=== PATIENT | female | born 1940 | race Caucasian/White ===

== ENCOUNTER 2024-06-26 10:41 | Observation (INO) | payer MEDICARE, SELFPAY ==
--- NOTE | ~2024-06-26 | CT_ITS ---
EXAMINATION: CT ANGIOGRAM CHEST CT ABDOMEN AND PELVIS WITH CONTRAST CLINICAL INFORMATION: Epigastric/chest COMPARISON: None. TECHNIQUE: Volumetric helical CT imaging was performed through the chest after the administration of 50 mL of Optiray 320 intravenous contrast.. Images were reviewed on a dedicated 3-D workstation. Subsequently multidetector volumetric CT imaging of the abdomen, and pelvis was performed. Axial MIP volume rendering provided. Sagittal and coronal reformatted images were obtained. This CT examination was performed using dose optimization techniques as appropriate, variously including the following: *Automated exposure control *Adjustment of mA and/or kV according to patient size (this includes techniques or standardized protocols for targeted exams where dose is matched to indication/reason for exam; i.e. extremities or head) *Use of iterative reconstruction technique DLP: 633 mGy-cm. FINDINGS: QUALITY OF STUDY/CONTRAST BOLUS: Satisfactory PULMONARY ARTERIES: No central or segmental pulmonary emboli. Main pulmonary artery is not enlarged. THORACIC AORTA: No aneurysm or dissection. Atherosclerotic calcifications of the aortic arch. LUNG/PLEURA: Respiratory motion artifact limits evaluation. Mild emphysematous changes. Bibasilar atelectasis. Central airways are patent. No pneumothorax. No large pleural effusion. MEDIASTINUM: Heart is mildly enlarged. No pericardial effusion. Coronary artery calcifications are noted. A few mildly prominent though nonenlarged mediastinal lymph nodes are noted. Visualized portions of the thyroid No evidence of septal bowing or right heart strain. Mild elevation right hemidiaphragm. CHEST WALL/AXILLA: No axillary or internal mammary lymphadenopathy. LIVER, GALLBLADDER, AND BILIARY TREE: Liver is mildly enlarged measuring 19.9 cm No focal hepatic lesion or biliary ductal dilatation is present. The gallbladder is unremarkable with no evidence of radiopaque gallstones, gallbladder wall thickening, or obvious pericholecystic inflammatory changes. PANCREAS: Atrophy of the visualized pancreas. SPLEEN: Unremarkable. ADRENAL GLANDS: Unremarkable. KIDNEYS AND URETERS: Bilateral renal hypodense foci demonstrating fluid attenuation statistically representing cysts, not requiring follow-up. Mild right cortical renal thickening suggesting elements of medical renal right-sided nephrolithiasis or cirrhosis. Left-sided nephrolithiasis or BLADDER: Unremarkable. GASTROINTESTINAL TRACT: Small hiatal hernia. Colonic diverticulosis without acute diverticulitis The small and large bowel are unremarkable. The appendix is not definitively visualized. ABDOMINAL WALL: Fat filled bilateral inguinal hernias. LYMPH NODES: No enlarged lymph nodes per size criteria. VASCULAR: Abdominal aorta is nonaneurysmal. Prominent atherosclerotic calcifications of the abdominal aorta and its branches prominent narrowing of the bilateral renal artery ostia. PELVIC VISCERA: Uterus is atrophy versus surgically absent. OSSEOUS STRUCTURES: Multilevel degenerative changes of the thoracolumbar and lumbosacral spine. Sclerotic focus involving the sacrum statistically representing a bone island. CT/CT angio chest PE protocol IMPRESSION: 1. No central or segmental pulmonary emboli. 2. No acute process of the abdomen or pelvis identified. 3. Liver is mildly enlarged measuring 19.9 cm. 4. Bilateral renal hypodense foci demonstrating fluid attenuation statistically representing cysts, not requiring follow-up. 5. Mild right cortical renal thickening suggesting elements of medical renal right-sided nephrolithiasis or cirrhosis. 6. Small hiatal hernia. 7. Colonic diverticulosis without acute diverticulitis. 8. Prominent atherosclerotic calcifications of the abdominal aorta.
[2024-06-26 10:46] VITALS: BP 141/56; BP 155/67; PULSE 80; RESP 22; TEMP 36.8; O2SAT 93; O2SAT 96; BMI 26.4
--- NOTE | 2024-06-26 10:54 | ECG_ITS ---
Test Reason : chest pain Blood Pressure : / mmHG Vent. Rate : 078 BPM Atrial Rate : 078 BPM P-R Int : 242 ms QRS Dur : 076 ms QT Int : 404 ms P-R-T Axes : 036 016 045 degrees QTc Int : 460 ms Sinus rhythm with 1st degree A-V block Septal infarct , age undetermined Abnormal ECG No previous ECGs available Referred By: Venessa Welsh Electronically Signed By:LAY GONZALEZ
--- NOTE | 2024-06-26 11:09 | ED.CHESTPAIN ---
HPI - Chest Pain General Chief Complaint: Chest Pain Stated Complaint: CP TO RUE,NAUSEA,SOB PER EMS Source: patient and family Mode of arrival: EMS Limitations: no limitations History of Present Illness ED Provider: GEOVANI CARRASCO narrative: 84 yo female with PMH of DM, HTN, prior repair of hiatal hernia in past in [place] here with c/o a few days upper abdominal pain and not feeling well at 3am today worsening pain like she got punched in central lower chest with dyspnea and nausea. She notes it hurts to breathe. No fevers. Given aspirin and nitro by EMS no relief. She denies hx of travel/procedures or prior VTE. She notes some pain moves to R arm. No known hx of heart attack in past. Has felt run down over the past few days. MD complaint: chest pain Onset (ago): hour(s) (3am) Timing of current episode: constant Prior episodes: No Onset: during rest Pain location: substernal Pain radiation: right arm Severity: moderate Quality: aching Relieving factors: nothing Exacerbating factors: inspiration Associated symptoms: nausea and dyspnea Treatment prior to arrival: aspirin, nitroglycerin and oxygen Related Data Allergies Allergy/AdvReac Type Severity Reaction Status Date / Time No Known Allergies Allergy Verified 06/26/24 10:53 Review of Systems Review of Systems: Constitutional : No Weight loss, No Fever, No Chills ENT/Mouth : No sore throat, No Rhinorrhea Eyes: No Eye Pain, No Swelling Cardiovascular : pos Chest Pain, pos SOB, no Dyspnea on Exertion, No Orthopnea, No Edema, No Palpitations Respiratory : No Cough, No Sputum Gastrointestinal : pos Nausea, No Vomiting, No Diarrhea, pos abdominal Pain, No Hematochezia, No Melena Genitourinary : No Dysuria, No Urinary Frequency Musculoskeletal : No joint pain, No Myalgias, No Joint Swelling Skin : No Skin Lesions, No rash Neuro : No Weakness, No Numbness, No Dizziness, No Headache Psych : No Anxiety/Panic, No Depression All other systems reviewed and are negative [facility] Past Medical History Attestation statement: The following information was validated with the patient. Medical History Hiatal hernia HTN (hypertension) Diabetes Surgical History H/O: hysterectomy Social History Social History (Updated 06/26/24 @ 11:33 by Venessa Welsh DO) Patient Tobacco Use Status: Never used Tobacco Smoked in Last 30 Days: No Use of substances other than those prescribed or required for medical reasons: No Advance Directives: No Advance Directives Information Provided: No Physical Exam Vital Signs: Vital Signs: Last Vital Signs Temp 98.5 F 06/26/24 14:24 Pulse 80 06/26/24 14:24 Resp 18 06/26/24 14:24 BP 164/61 H 06/26/24 14:24 Pulse Ox 98 06/26/24 14:24 O2 Del Method Room Air 06/26/24 14:24 Oxygen Flow Rate 2 06/26/24 10:46 BMI result Body Mass Index 26.4 Appearance: Alert. Oriented X3. No acute distress. Eyes: Pupils equal, round and reactive to light. ENT: Pharynx normal. Neck: Normal inspection. Neck supple. CVS: Normal heart rate and rhythm. Pulses normal. Respiratory: No respiratory distress. Breath sounds R side mildly diminished Abdomen: Soft and mild epigastric ttp. Skin: Skin warm and dry. Normal skin color. Normal skin turgor. Extremities: trace pitting both ankles lower extremity edema. No calf ttp Neuro: Oriented X 3. No motor deficit. No sensory deficit. Course Course Course Narrative: + UTI at this time possible infection suspected ceftriaxone ordered 422pm Medications Administered Discontinued Medications Generic Name Dose Route Start Last Admin Trade Name Freq PRN Reason Stop Dose Admin Iohexol 100 ml 06/26/24 13:24 06/26/24 13:24 Iohexol 350 Mg/Ml 100 Ml Infus..Btl IV 06/26/24 13:25 85 ml ONCE ONE Administration Methylprednisolone Sodium Succinate 60 mg 06/26/24 11:02 06/26/24 11:24 Methylprednisolone Sod Succ 125 Mg/2 Ml Vial IVPUSH 06/26/24 11:03 60 mg ONCE ONE Administration Medical Decision Making Medical Decision Making MDM Narrative: 84 yo female with PMH of DM, HTN, prior repair of hiatal hernia DOES NOT HAVE COPD OR CHF here with a few days of not eating much feeling sick then increase in epigastric substernal pain that became more severe at 3am with nausea and dyspnea. Pain worse with inspiration. No relief with nitro. At this time given history will need EKG, CTA for PE/aneurysm/hiatal hernia and CT abdomen for SBO / mass / lesion. Declines pain medications at this time. Differential Diagnosis Differential Diagnoses: The differential diagnosis associated with the presentation includes biliary etiology, hiatal hernia, ACS, VTE, pancreatitis Admission/Observation Consideration of admission/observation: Escalation of care including admission/observation considered admit for intermittent hypoxia, UTI, nausea, malaise Consult Healthcare Provider Management of the patient was discussed with: Hospitalist (will admit) Lab Data MDM Lab Attestation statement: I reviewed the patient's lab results. 06/26/24 12:44 06/26/24 12:44 Labs: Lab Results 06/26/24 06/26/24 Range/Units 12:44 15:48 WBC 17.7 H (4.8-10.8) X10*3/uL RBC 4.06 L (4.20-5.50) X10*6/uL Hgb 12.7 (12.0-16.0) g/dl Hct 38.4 (37.0-47.0) % MCV 94.6 (80.0-98.0) fL MCH 31.3 (27.0-33.0) pg MCHC 33.1 (31.0-35.0) g/dl RDW 12.7 (11.0-16.0) % Plt Count 261 (160-400) X10*3/uL MPV 11.1 (9.4-12.3) fL Immature Gran % (Auto) 0.6 H (0.0-0.4) % Neut % (Auto) 89.3 H (45-73) % Lymph % (Auto) 4.4 L (20-40) % [place] % (Auto) 5.1 (2-11) % Eos % (Auto) 0.2 (0-4) % Baso % (Auto) 0.4 (0-2) % Lymph # (Auto) 0.8 L (1.2-4.9) X10*3/uL [place] # (Auto) 0.9 (0.1-1.2) X10*3/uL Eos # (Auto) 0.0 (0.0-0.4) X10*3/uL Baso # (Auto) 0.1 (0.0-0.2) X10*3/uL Abs Immat Gran (auto) 0.11 H (0.00-0.03) X10*3/uL Absolute Neuts (auto) 15.8 H (2.0-8.3) x10*3/uL Absolute Nucleated RBC 0.000 (0.0-0.012) X10*3/uL Nucleated RBC % (auto) 0.0 (0.0-0.2) /100WBC PT 13.0 (11.1-13.3) SEC INR 1.1 (0.9-1.1) Sodium 140 (135-145) mmol/L Potassium 4.7 (3.3-5.1) mmol/L Chloride 106 (96-108) mmol/L Carbon Dioxide 23 (22-29) mmol/L Anion Gap 16 (12-20) BUN 28 H (9-16) mg/dL Creatinine 1.11 (0.5-1.4) mg/dL Estim Creat Clear Calc 36.1 Estimated GFR 47 Random Glucose 170 H (60-115) mg/dL Calcium 9.9 (8.4-10.2) mg/dL Magnesium 1.8 (1.6-2.6) mg/dL Total Bilirubin 0.4 (0.0-1.0) mg/dL Direct Bilirubin 0.1 (0.0-0.5) mg/dL AST 15 (5-31) U/L ALT 12 (0-31) U/L Alkaline Phosphatase 63 (39-117) U/L Troponin I High Sens 4.8 3.8 (<3.5-17.0) ng/L B-Natriuretic Peptide 282 H (<100) pg/mL Total Protein 7.4 (6.5-8.0) g/dL Albumin 4.0 (3.5-5.0) g/dL Urine Color Yellow Urine Appearance Cloudy Urine pH 6.0 (5.0-9.0) Ur Specific [place] >= 1.030 H (1.005-1.025) Urine Protein 100 (2+) H (Neg-Trace) mg/dL Urine Glucose (UA) Negative (Negative) mg/dL Urine Ketones Negative (Negative) mg/dL Urine Blood Negative (Negative) Urine Nitrite Negative (Negative) Ur Leukocyte Esterase Small (1+) H (Negative) Urine RBC 0-2 (0-2) /HPF Urine WBC >50 H (0-5) /HPF Ur Squamous Epith Cells 0-2 (0-2) /HPF Urine Bacteria 4+ (None Seen) Hyaline Casts 0-2 (0-2) /LPF Influenza Type A (PCR) NEGATIVE (Negative) Influenza Type B (PCR) NEGATIVE (Negative) RSV RNA Qual (PCR) NEGATIVE (Negative) SARS-CoV-2 RNA (RT-PCR) NEGATIVE (Negative) Independent Interpretation I performed an independent interpretation of an: EKG and CT Scan (no PE, no pneumonia) Interpretation: Rate: 78 Rhythm: NSR with 1st degree AVB [place]: normal Normal P waves. Normal MALU. Normal QRS complex. ST T wave : slight ST elevation II otherwise no other elevation, no reciprocal changes qTC: 460 prior studies: The study has been interpreted contemporaneously by me. . Radiology Impression Discussion of test interpretation with radiology: I have reviewed the radiologist's reading. Independent Historian Clinical information obtained from an independent historian. History obtained from or confirmed by: EMS and Other (daughter) Discharge Plan Discharge Clinical Impression: Atypical chest pain, Acute UTI, Hypoxia Elevated WBC count Qualifiers: Leukocytosis type: unspecified Qualified Code(s): D72.829 - Elevated white blood cell count, unspecified Patient Disposition: Admitted As Inpatient Print Language: Georgian
[2024-06-26] MEDS: methylPREDNISolone Sod Succ 125 MG/2 ML VIAL 60 MG IVPUSH (11:24)
[2024-06-26 12:50] LABS: MANUAL DIFF FLAG NO
[2024-06-26 13:00] LABS: Basophils Absolute Auto 0.1 X10*3/uL (0.0-0.2); Basophils Percent Auto 0.4 % (0-2); Eosinophils Percent Auto 0.2 % (0-4); Hematocrit 38.4 % (37.0-47.0); Hemoglobin 12.7 g/dl (12.0-16.0); Imm Gran Abs Auto 0.11 X10*3/uL (0.00-0.03); Imm Gran Pct Auto 0.6 % (0.0-0.4); Lymphocytes Absolute Auto 0.8 X10*3/uL (1.2-4.9); Lymphocytes Percent Auto 4.4 % (20-40); Mean Corpuscular HGB Conc 33.1 g/dl (31.0-35.0); Mean Corpuscular Hemoglobin 31.3 pg (27.0-33.0); Mean Corpuscular Volume 94.6 fL (80.0-98.0); Mean Platelet Volume 11.1 fL (9.4-12.3); Monocytes Absolute Auto 0.9 X10*3/uL (0.1-1.2); Monocytes Percent Auto 5.1 % (2-11); Neutrophils Absolute Auto 15.8 x10*3/uL (2.0-8.3); Neutrophils Percent Auto 89.3 % (45-73); Platelet Count 261 X10*3/uL (160-400); Red Blood Count 4.06 X10*6/uL (4.20-5.50); Red Cell Distribution Width 12.7 % (11.0-16.0); White Blood Count 17.7 X10*3/uL (4.8-10.8)
[2024-06-26 13:06] LABS: Alanine Aminotransferase 12 U/L (0-31); Alkaline Phosphatase 63 U/L (39-117); Anion Gap 16 (12-20); Aspartate Amino Transferase 15 U/L (5-31); Bilirubin Direct 0.1 mg/dL (0.0-0.5); Bilirubin Total 0.4 mg/dL (0.0-1.0); Blood Urea Nitrogen 28 mg/dL (9-16); Calcium 9.9 mg/dL (8.4-10.2); Carbon Dioxide 23 mmol/L (22-29); Chloride 106 mmol/L (96-108); Creatinine Clr Calc Pharmacy 36.1; Estimated Glomerular Filt Rate 47; Glucose Random 170 mg/dL (60-115); INTERNATIONAL NORM RATIO 1.1 (0.9-1.1); Magnesium 1.8 mg/dL (1.6-2.6); Potassium 4.7 mmol/L (3.3-5.1); Sodium 140 mmol/L (135-145); Total Protein 7.4 g/dL (6.5-8.0)
[2024-06-26 13:12] LABS: B Type Natriuretic Peptide 282 pg/mL (<100); Troponin-I High Sensitivity 4.8 ng/L (<3.5-17.0)
[2024-06-26] MEDS: iohexoL 350 MG/ML 100 ML INFUS..BTL IV (13:24)
[2024-06-26 13:29] LABS: Influenza A PCR NEGATIVE (Negative); Influenza B PCR NEGATIVE (Negative); Resp Syncy Virus RNA Qual PCR NEGATIVE (Negative); SARS COV2 PCR INHOUSE NEGATIVE (Negative)
[2024-06-26 14:24] VITALS: BP 164/61; PULSE 80; RESP 18; TEMP 36.9; O2SAT 98
[2024-06-26 15:54] LABS: Appearance Urine Cloudy; Color Urine Yellow; Glucose Urine UA Negative (Negative); Leukocyte Esterase Urine Small (1+) (Negative); Nitrite Urine Negative (Negative); Specific Gravity - Urine >= 1.030 (1.005-1.025); UMIC TRIGGER UACC YES; Urine Blood Negative (Negative); Urine Ketones Negative (Negative); Urine Protein 100 (2+) mg/dL (Neg-Trace)
[2024-06-26 16:14] LABS: Bacteria Urine 4+ (None Seen); Hyaline Casts Urine 0-2 /LPF (0-2); RBC Urine 0-2 /HPF (0-2); Squamous Epithelial Cell Urine 0-2 /HPF (0-2); UACC Culture Trigger YES; WBC Urine >50 /HPF (0-5)
[2024-06-26 16:22] LABS: Troponin-I High Sensitivity 3.8 ng/L (<3.5-17.0)
[2024-06-26 16:55] LABS: Lactic Acid 1.7 mmol/L (0.5-2.0)
[2024-06-26 17:16] VITALS: BP 145/58; PULSE 81; RESP 24; TEMP 36.6; O2SAT 92
[2024-06-26 17:17] VITALS: BP 145/58
[2024-06-26] MEDS: cefTRIAXone sodium 1 GM in 0.9 % Sodium Chloride 50 ML IV (17:17)
[2024-06-26] MEDS: Furosemide 20 MG/2 ML VIAL IVPUSH (17:17)
--- NOTE | 2024-06-26 17:45 | P.HPHOSP_ITS ---
History of Present Illness Date of Service: 06/26/24 Chief Complaint: dyspnea, chest pain 84yo F with DM2, HTN, and HLD but no known hx of COPD or CHF presenting to the ED after waking up at 03:00 with sharp mid-sternal chest pain with dyspnea, nausea, and malaise. The pain was severe enough for her to come to the ED but since arrival here, has subsided. No fever, chills, dizziness, headache, cough, or wheezing. Legs are maybe a little more swollen than usual. In the ED, she was noted to be hypoxic to 89% on room air; currently 92-95% on room air after getting a dose of IV furosemide, Solumedrol, and ceftriaxone. WBC count elevated to 17.7 with 89.3% WBCs. Two hs-Tn-I measurements were normal. BNP 282. UA showed pyuria + bacteruria, but the patient denies any dysuria or urinary urgency. CTA was motion-limited but no central/segmental PE noted. PCR for Covid-19, influenza, and RSV negative. Review of Systems 2 Review of Systems: Yes all other systems are reviewed and are negative [facility] Medical History Hiatal hernia HTN (hypertension) Diabetes Surgical History H/O: hysterectomy Social History Patient Tobacco Use Status: Never used Tobacco Smoked in Last 30 Days: No Use of substances other than those prescribed or required for medical reasons: No Advance Directives: No Advance Directives Information Provided: No Meds Allergies Allergy/AdvReac Type Severity Reaction Status Date / Time No Known Allergies Allergy Verified 06/26/24 10:53 Active Medications: Current Medications Acetaminophen (Acetaminophen 325 Mg Tablet) 650 mg PO Q6H PRN PRN Reason: Pain, Mild (Pain Scale 1-3), fever or headache Enoxaparin Sodium (Enoxaparin Sodium 40 Mg/0.4 Ml Syringe) 40 mg SUBCUT Q24H [place] Glucose (Glucose Gel 15 Gm Gel..Gram.) 15 gm PO Q15M PRN; Protocol PRN Reason: per Hypoglycemia Standing Ord. Dextrose (D10) 250 mls @ 750 mls/hr IV Q15M PRN; Protocol PRN Reason: per Hypoglycemia Standing Ord. Insulin Human Lispro (Insulin Lispro 100 Unit/Ml 3 Ml Vial) [facility]; Protocol Magnesium Hydroxide (Milk Of Magnesia 30 Ml Oral.Susp) 30 ml PO DAILY PRN PRN Reason: Constipation Melatonin (Melatonin 3 Mg Tablet) 6 mg PO BEDTIME PRN PRN Reason: Insomnia Ondansetron HCl (Ondansetron Hcl 4 Mg/2 Ml Vial) 4 mg IVPUSH Q8H PRN PRN Reason: Nausea and Vomiting Sodium Chloride (0.9 % Sodium Chloride Flush 3 Ml Syringe) 3 ml IVFLUSH [facility] Home Medications ?Medication ?Instructions ?Recorded ?Confirmed ?Last Taken ?Type amlodipine 10 mg tablet 10 mg PO DAILY 06/26/24 Unknown History ferrous sulfate 325 mg (65 mg 325 mg PO BID 06/26/24 Unknown History iron) tablet (FeroSul) insulin glargine 100 unit/mL (3 12 - 16 unit subcut DAILY 06/26/24 Unknown History mL) subcutaneous pen (Lantus Solostar U-100 Insulin) labetalol 100 mg tablet 100 mg PO BID 06/26/24 Unknown History metformin 500 mg tablet 500 mg PO BID 06/26/24 Unknown History olmesartan 20 mg tablet 30 mg PO DAILY 06/26/24 Unknown History omeprazole 20 mg capsule,delayed 20 mg PO DAILY 06/26/24 Unknown History release simvastatin 20 mg tablet 20 mg PO BEDTIME 06/26/24 Unknown History Physical Exam 2 Vital Signs and Narrative: Vital Signs: Last Vital Signs Temp 97.8 F 06/26/24 17:16 Pulse 81 06/26/24 17:16 Resp 24 H 06/26/24 17:16 BP 145/58 H 06/26/24 17:17 Pulse Ox 92 06/26/24 17:16 O2 Del Method Room Air 06/26/24 17:16 Oxygen Flow Rate 2 06/26/24 10:46 BMI result Body Mass Index 26.4 Gen: in no acute distress HEENT: sclera anicteric, moist mucus membranes Neck: supple Lungs: clear to auscultation bilaterally Heart: regular rate and rhythm, no murmurs Abd: soft, non-tender, non-distended Ext: 1+ bilateral leg edema Skin: warm/well-perfused Neuro: alert and oriented x3, no focal findings Psych: appropriate affect Results Labs 06/26/24 12:44 06/26/24 12:44 Labs: Laboratory Results - last 24 hr 06/26/24 06/26/24 06/26/24 12:44 15:48 16:39 MCV 94.6 MCH 31.3 MCHC 33.1 RDW 12.7 Plt Count 261 MPV 11.1 Immature Gran % (Auto) 0.6 H Neut % (Auto) 89.3 H Lymph % (Auto) 4.4 L [place] % (Auto) 5.1 Eos % (Auto) 0.2 Baso % (Auto) 0.4 Lymph # (Auto) 0.8 L [place] # (Auto) 0.9 Eos # (Auto) 0.0 Baso # (Auto) 0.1 Abs Immat Gran (auto) 0.11 H Absolute Neuts (auto) 15.8 H Absolute Nucleated RBC 0.000 Nucleated RBC % (auto) 0.0 PT 13.0 INR 1.1 Anion Gap 16 Estim Creat Clear Calc 36.1 Estimated GFR 47 Random Glucose 170 H Lactic Acid 1.7 Calcium 9.9 Magnesium 1.8 Total Bilirubin 0.4 Direct Bilirubin 0.1 AST 15 ALT 12 Alkaline Phosphatase 63 Troponin I High Sens 4.8 3.8 B-Natriuretic Peptide 282 H Total Protein 7.4 Albumin 4.0 Urine Color Yellow Urine Appearance Cloudy Urine pH 6.0 Ur Specific [place] >= 1.030 H Urine Protein 100 (2+) H Urine Glucose (UA) Negative Urine Ketones Negative Urine Blood Negative Urine Nitrite Negative Ur Leukocyte Esterase Small (1+) H Urine RBC 0-2 Urine WBC >50 H Ur Squamous Epith Cells 0-2 Urine Bacteria 4+ Hyaline Casts 0-2 Influenza Type A (PCR) NEGATIVE Influenza Type B (PCR) NEGATIVE RSV RNA Qual (PCR) NEGATIVE SARS-CoV-2 RNA (RT-PCR) NEGATIVE Imaging Radiologist's Impressions: Impressions Abdomen/Pelvis CT 06/26/24 13:33 IMPRESSION: 1. No central or segmental pulmonary emboli. 2. No acute process of the abdomen or pelvis identified. 3. Liver is mildly enlarged measuring 19.9 cm. 4. Bilateral renal hypodense foci demonstrating fluid attenuation statistically representing cysts, not requiring follow-up. 5. Mild right cortical renal thickening suggesting elements of medical renal right-sided nephrolithiasis or cirrhosis. 6. Small hiatal hernia. 7. Colonic diverticulosis without acute diverticulitis. 8. Prominent atherosclerotic calcifications of the abdominal aorta. Chest CTA 06/26/24 13:33 IMPRESSION: 1. No central or segmental pulmonary emboli. 2. No acute process of the abdomen or pelvis identified. 3. Liver is mildly enlarged measuring 19.9 cm. 4. Bilateral renal hypodense foci demonstrating fluid attenuation statistically representing cysts, not requiring follow-up. 5. Mild right cortical renal thickening suggesting elements of medical renal right-sided nephrolithiasis or cirrhosis. 6. Small hiatal hernia. 7. Colonic diverticulosis without acute diverticulitis. 8. Prominent atherosclerotic calcifications of the abdominal aorta. Assessment and Plan (1) Hypoxia: Status: Acute (2) Elevated WBC count: Qualifiers: Leukocytosis type: unspecified Qualified Code(s): D72.829 - Elevated white blood cell count, unspecified Status: Acute Plan 84yo F with DM2, HTN, and HLD but no known hx of COPD or CHF presenting with chest pain, dyspnea, nausea, and malaise; found to be slightly hypoxic with leukocytosis. Negative CTA for PE. Troponins negative. Pyuria/bacteruria but no UTI symptoms. AHRF - admit to telemetry on observation. suspect CHF with edema + elevated BNP and did get 1 dose Lasix. check TTE in AM. another possibility is COPD with mild empysema noted on CT. did get 1 dose Solumedrol. leukocytosis - ?etiology. got 1 dose ceftriaxone. BCx/UCx pending. check CRP/PCT HTN - amlodipine, labetalol, olmesartan HLD - statin DM2 - basal-bolus insulin; hold MTF VTE ppx - enoxaparin code - DNR/DNI dispo - likely home Quality Stroke Does the patient have a stroke diagnosis?: No VTE Prior VTE?: No VTE Risk Level:: Medical - moderate - high VTE Device Contraindication: N/A - Device Ordered VTE Drug Contraindication: N/A - Med Ordered
[2024-06-26 18:02] LABS: C Reactive Protein 1.82 mg/dL (< or = 0.50)
--- NOTE | 2024-06-26 18:17 | PHA.MEDREC ---
Addendum entered by Teresa Ascencio RPh 06/26/24 18:56: med rec complete by engineer intern, reviewed by [facility] Original Note: Pharmacy Consult ? Medication Reconciliation Pharmacy has completed the medication reconciliation.
[2024-06-26 18:18] LABS: Procalcitonin 0.17 ng/mL
[2024-06-26 18:28] LABS: Troponin-I High Sensitivity 3.7 ng/L (<3.5-17.0)
[2024-06-26] MEDS: Enoxaparin Sodium 40 MG/0.4 ML SYRINGE SUBCUT (19:20)
[2024-06-26 20:19] VITALS: BP 133/54; PULSE 79; RESP 22; TEMP 37.1; O2SAT 95
--- NOTE | 2024-06-26 20:53 | PC.NURSE ---
pt calm and pleasant, assisted pt move up in bed for comfort, removed visitor sticker pt had on, pt now refusing to talk or answer questions, mood quickly changed.
[2024-06-26 22:00] LABS: Glucose, Whole Blood 346 mg/dL (60-115)
[2024-06-26] MEDS: Insulin Lispro 100 UNIT/ML 3 ML VIAL SUBCUT (22:04)
[2024-06-27] MEDS: 0.9 % Sodium Chloride Flush 3 ML SYRINGE IVFLUSH ×2 (00:31→08:00)
[2024-06-27 00:34] VITALS: BP 134/47; PULSE 74; RESP 22; TEMP 36.7; O2SAT 93
[2024-06-27 04:12] VITALS: BP 124/89; PULSE 74; RESP 22; TEMP 36.7; O2SAT 92
[2024-06-27 05:34] LABS: Hematocrit 33.1 % (37.0-47.0); Mean Corpuscular HGB Conc 33.2 g/dl (31.0-35.0); Mean Corpuscular Hemoglobin 31.3 pg (27.0-33.0); Mean Corpuscular Volume 94.3 fL (80.0-98.0); Mean Platelet Volume 11.7 fL (9.4-12.3); Platelet Count 245 X10*3/uL (160-400); Red Blood Count 3.51 X10*6/uL (4.20-5.50); Red Cell Distribution Width 12.9 % (11.0-16.0); White Blood Count 15.7 X10*3/uL (4.8-10.8)
[2024-06-27 05:45] LABS: Anion Gap 19 (12-20); Blood Urea Nitrogen 35 mg/dL (9-16); Calcium 9.4 mg/dL (8.4-10.2); Carbon Dioxide 20 mmol/L (22-29); Chloride 104 mmol/L (96-108); Creatinine Clr Calc Pharmacy 28.8; Estimated Glomerular Filt Rate 36; Glucose Random 296 mg/dL (60-115); Sodium 139 mmol/L (135-145)
[2024-06-27 05:52] LABS: B Type Natriuretic Peptide 628 pg/mL (<100)
[2024-06-27 06:10] VITALS: BP 142/100; PULSE 77; RESP 18; TEMP 36.6; O2SAT 94
--- NOTE | 2024-06-27 07:00 | CA_ITS ---
Transthoracic Echocardiogram Patient (Last, First, Middle): Gayle Rainey G Gender: Female Date of : 1940 Age: 84 Procedure Date: 06/27/2024 Procedure Type: Transthoracic Echocardiogram Location: ER Height: 162. cm Weight: 69.4 kg BSA: 1.74 m2 Heart Rate: 79 bpm BP: 150 / 56 mmHg Dragline Oiler: LO Referring MD: Angelic Shah MD Symptoms: hypoxia, elev BNP Study Quality: Fair ECG Rhythm: Sinus Conclusions: - The left ventricular systolic function is hyperdynamic. The visually estimated ejection fraction is >70%. - The left atrium is moderately dilated. - There is severe mitral annular calcification. There is severe mitral valve stenosis. Findings Left Ventricle Normal left ventricular cavity size. There is mildly increased left ventricular wall thickness. The left ventricular systolic function is hyperdynamic. The visually estimated ejection fraction is >70%. There is no evidence of regional wall motion abnormalities. Evidence suggests grade I (mild) diastolic dysfunction. Right Ventricle Normal right ventricular cavity size and systolic function. Atria The left atrium is moderately dilated. The right atrium is normal in size. Aortic Valve There is a normal trileaflet aortic valve. There is no aortic valve stenosis. There is no aortic valve regurgitation. Mitral Valve There is severe mitral annular calcification. There is mild mitral valve regurgitation. There is severe mitral valve stenosis. Mean gradient of 16 mm Hg at 78/Min. Mitral valve area by VTI 0.9 sq cm. Pulmonic Valve The pulmonic valve is likely normal. Tricuspid Valve Normal tricuspid valve structure. There is mild tricuspid valve regurgitation. There is no evidence of pulmonary hypertension. Great Vessels The asc aorta is normal in size. Venous The inferior vena cava is normal in size and collapses greater than 50% with inspiration. Pericardium/Pleural There is no evidence of pericardial effusion. Prior Study Comparison No prior study available for comparison. Measurements 2D Linear Measurements IVSd: 1.25 0.6-0.9/0.6-1.0 cm LVIDd: 4.11 3.9-5.3/4.2-5.9 cm LVIDd Index: 2.36 2.4-3.2/2.2-3.1 cm/m2 LVIDs: 1.94 2.0-3.6 cm LVPWd: 1.21 0.7-1.1 cm LA Diam: 3.70 2.7-3.8/3.0-4.0 cm LAIDs Index: 2.13 1.5-2.3 cm/m2 LV Mass: 222.73 67-162/88-224 g LV Mass Index: 128.01 43-95/49-115 g/m2 LVOT Diam: 1.90 3.0+(-)1.3 cm 2D Systolic Function EF 4C: 82.80 >55% EF 2C: 82.90 >55% EF BiP: 83.30 >55% Mitral Valve MV VTI: 0.66 MV Pk David: 2.43 MV Mn David: 1.81 MV Pk Grad: 24.00 MV Mn Grad: 14.00 MV Pk E: 2.29 MV PK A: 2.12 MV Decel Time: 255.00 E/A: 1.10 E'Lateral: 3.45 E'Medial: 2.63 E/E' Med: 87.10 E/E' Lat: 66.40 PHT: 75.00 MVA PHT: 2.93 MVA Continuity: 0.98 Decel [place]: 8.96 Aortic Valve AoV Pk David: 1.42 AoV Mn David: 1.11 AoV VTI: 0.38 AoV Pk Grad: 8.00 Aov Mn Grad: 5.00 ROS Cont.VTI: 1.72 LVOT LVOT Pk David: 1.05 LVOT Mn David: 0.79 LVOT VTI: 0.23 LVOT Pk Grad: 4.00 LVOT Mn Grad: 3.00 LVOT Diam: 1.90 LVOT Area: 2.84 Diastolic Function MV Pk E: 2.29 MV Pk A: 2.12 E/A: 1.10 E'Medial: 2.63 E/E' Med: 87.10 E' Laterial: 3.45 E/E' Lat: 66.40 Right Ventricle TAPSE (mm): 19.10 TVS' David: 11.00 Tricuspid Valve TR Pk David: 2.78 TR Pk Grad: 31.00 RA Press: 3.00 RVSP: 34.00 Great Vessels Aorta Sinus of Valsalva: 3.10 2.0-3.5 cm Ao Asc: 2.90 2.1-3.4 cm Pulmonary Valve PV Pk David: 1.39 Peak PV Grad: 8.00 Updated in Other Vendor System with Status of Final Prosper Restrepo MD electronically signed on 06/27/2024 12:33:16 PM with status of Final
[2024-06-27 07:33] LABS: Glucose, Whole Blood 281 mg/dL (60-115)
[2024-06-27] MEDS: Insulin Lispro 100 UNIT/ML 3 ML VIAL SUBCUT (07:59)
--- NOTE | 2024-06-27 08:09 | PC.NURSE ---
this RN resumed care of pt at 0645. a&ox4. vss and up to date. nsr on the youth nutritional monitor. pt ambulates to the restroom independently w/ a strong/steady gait. insulin administered per sliding scale. IV access flushed/redressed. pt repositioned to comfort/sitting upright eating breakfast/in no apparent distress. no sob/wob noted. respirations even/unlabored. pt waiting for bed assignment at this time. daughter bedside for support. plan of care ongoing. call gaffney placed within reach.
[2024-06-27 09:07] VITALS: BP 142/100; PULSE 77; O2SAT 94
--- NOTE | 2024-06-27 09:31 | PC.NURSE ---
pt working w/ PT at this time.
[2024-06-27 10:45] VITALS: BP 150/56; PULSE 77; RESP 16; TEMP 36.7; O2SAT 94
--- NOTE | 2024-06-27 10:45 | PC.NURSE ---
pt transitioned to RA at this time. resting at 94% while laying in stretcher. pt reports no sob. no wob noted. respirations even/unlabored. otherwise vss and up to date. nsr on the hospital monitor. pt continues to wait for bed assignment at his time. plan of care ongoing.
[2024-06-27] MEDS: cefuroxime axetiL 500 MG TABLET PO (11:38)
--- NOTE | 2024-06-27 11:39 | PC.NURSE ---
abx administered per provider order. echo being completed at this time.
--- NOTE | 2024-06-27 12:45 | P.DS_ITS ---
DS: Providers Provider Date of Service: 06/27/24 Date of admission: 06/26/24 17:43 Primary care physician: Christie Mendez PA-C DS: Diagnosis Discharge Diagnosis (1) Elevated WBC count: Status: Acute (2) Acute respiratory failure with hypoxia: Status: Acute (3) Atypical chest pain: Status: Acute (4) Acute UTI: Status: Acute (5) Congestive heart failure: Status: Acute (6) Emphysema lung: Status: Acute (7) Acute heart failure with preserved ejection fraction (HFpEF): Status: Acute (8) Severe mitral valve stenosis: Status: Acute DS: Summary Hospital Course Hospital Course: From my admission history and physical from 06/26/24: 84yo F with DM2, HTN, and HLD but no known hx of COPD or CHF presenting to the ED after waking up at 03:00 with sharp mid-sternal chest pain with dyspnea, nausea, and malaise. The pain was severe enough for her to come to the ED but since arrival here, has subsided. No fever, chills, dizziness, headache, cough, or wheezing. Legs are maybe a little more swollen than usual. In the ED, she was noted to be hypoxic to 89% on room air; currently 92-95% on room air after getting a dose of IV furosemide, Solumedrol, and ceftriaxone. WBC count elevated to 17.7 with 89.3% WBCs. Two hs-Tn-I measurements were normal. BNP 282. UA showed pyuria + bacteruria, but the patient denies any dysuria or urinary urgency. CTA was motion-limited but no central/segmental PE noted. PCR for Covid-19, influenza, and RSV negative. She was admitted to the hospitalist service on overnight observation with telemetry. Chest pain completely resolved. Suspected CHF with a little leg edema and high BNP. She got 1 dose of IV Lasix and hypoxia completely resolved. Echocardiogram was done 06/27/14 and showed hyperdynamic LVEF but grade I diastolic dysfunction. She was also noted to have severe mitral stenosis. She was discharged on 20 mg of furosemide daily and should repeat labs [BNP, BMP, magnesium] in 3-4 days. Follow-up with [facility] in 2 weeks is advised. Mild empysema noted on CT, but no wheezing; she should have outpatient pulmonary function testing done. Leukocytosis improved after 1 dose of ceftriaxone and urine culture grew GNRs; she was discharged on a course of cefuroxime. She should follow up with her primaary care doctor within 1-2 weeks. Time Attestation Discharge Coordination Time (in mins): 35 Quality: Safe Use of Opioids Does Pt have an Active Cancer Diagnosis on the Problem List?: No Quality: Stroke Does the patient have a stroke diagnosis?: No Physical Exam Vital Signs: Vital Signs: Last Vital Signs Temp 98.1 F 06/27/24 10:45 Pulse 77 06/27/24 10:45 Resp 16 06/27/24 10:45 BP 150/56 H 06/27/24 10:45 Pulse Ox 94 06/27/24 10:45 O2 Del Method Room Air 06/27/24 10:45 O2 Flow Rate 2 06/27/24 06:10 Oxygen Flow Rate 2 06/26/24 10:46 BMI result Body Mass Index 26.4 Gen: in no acute distress HEENT: sclera anicteric, moist mucus membranes Neck: supple Lungs: clear to auscultation bilaterally Heart: regular rate and rhythm, no murmurs Abd: soft, non-tender, non-distended Ext: no edema Skin: warm/well-perfused Neuro: alert and oriented x3, no focal findings Psych: appropriate affect DS: Data Data Completed and Pending Completed studies during hospitalization [Text1]: Laboratory Results WBC 15.7 X10*3/uL (4.8-10.8) H 06/27/24 04:57 RBC 3.51 X10*6/uL (4.20-5.50) L 06/27/24 04:57 Hgb 11.0 g/dl (12.0-16.0) L 06/27/24 04:57 Hct 33.1 % (37.0-47.0) L 06/27/24 04:57 MCV 94.3 fL (80.0-98.0) 06/27/24 04:57 MCH 31.3 pg (27.0-33.0) 06/27/24 04:57 MCHC 33.2 g/dl (31.0-35.0) 06/27/24 04:57 RDW 12.9 % (11.0-16.0) 06/27/24 04:57 Plt Count 245 X10*3/uL (160-400) 06/27/24 04:57 MPV 11.7 fL (9.4-12.3) 06/27/24 04:57 Immature Gran % (Auto) 0.6 % (0.0-0.4) H 06/26/24 12:44 Neut % (Auto) 89.3 % (45-73) H 06/26/24 12:44 Lymph % (Auto) 4.4 % (20-40) L 06/26/24 12:44 [place] % (Auto) 5.1 % (2-11) 06/26/24 12:44 Eos % (Auto) 0.2 % (0-4) 06/26/24 12:44 Baso % (Auto) 0.4 % (0-2) 06/26/24 12:44 Lymph # (Auto) 0.8 X10*3/uL (1.2-4.9) L 06/26/24 12:44 [place] # (Auto) 0.9 X10*3/uL (0.1-1.2) 06/26/24 12:44 Eos # (Auto) 0.0 X10*3/uL (0.0-0.4) 06/26/24 12:44 Baso # (Auto) 0.1 X10*3/uL (0.0-0.2) 06/26/24 12:44 Abs Immat Gran (auto) 0.11 X10*3/uL (0.00-0.03) H 06/26/24 12:44 Absolute Neuts (auto) 15.8 x10*3/uL (2.0-8.3) H 06/26/24 12:44 Absolute Nucleated RBC 0.000 X10*3/uL (0.0-0.012) 06/27/24 04:57 Nucleated RBC % (auto) 0.0 /100WBC (0.0-0.2) 06/27/24 04:57 PT 13.0 SEC (11.1-13.3) 06/26/24 12:44 INR 1.1 (0.9-1.1) 06/26/24 12:44 Sodium 139 mmol/L (135-145) 06/27/24 04:58 Potassium 4.0 mmol/L (3.3-5.1) 06/27/24 04:58 Chloride 104 mmol/L (96-108) 06/27/24 04:58 Carbon Dioxide 20 mmol/L (22-29) L 06/27/24 04:58 Anion Gap 19 (12-20) 06/27/24 04:58 BUN 35 mg/dL (9-16) H 06/27/24 04:58 Creatinine 1.39 mg/dL (0.5-1.4) 06/27/24 04:58 Estim Creat Clear Calc 28.8 06/27/24 04:58 Estimated GFR 36 06/27/24 04:58 POC Glucose 281 mg/dL (60-115) H 06/27/24 07:27 Random Glucose 296 mg/dL (60-115) H 06/27/24 04:58 Lactic Acid 1.7 mmol/L (0.5-2.0) 06/26/24 16:39 Calcium 9.4 mg/dL (8.4-10.2) 06/27/24 04:58 Magnesium 1.8 mg/dL (1.6-2.6) 06/26/24 12:44 Total Bilirubin 0.4 mg/dL (0.0-1.0) 06/26/24 12:44 Direct Bilirubin 0.1 mg/dL (0.0-0.5) 06/26/24 12:44 AST 15 U/L (5-31) 06/26/24 12:44 ALT 12 U/L (0-31) 06/26/24 12:44 Alkaline Phosphatase 63 U/L (39-117) 06/26/24 12:44 Troponin I High Sens 3.7 ng/L (<3.5-17.0) 06/26/24 17:58 C-Reactive Protein 1.82 mg/dL (< or = 0.50) H 06/26/24 12:44 B-Natriuretic Peptide 628 pg/mL (<100) H 06/27/24 04:58 Total Protein 7.4 g/dL (6.5-8.0) 06/26/24 12:44 Albumin 4.0 g/dL (3.5-5.0) 06/26/24 12:44 Procalcitonin 0.17 ng/mL 06/26/24 12:44 Urine Color Yellow 06/26/24 15:48 Urine Appearance Cloudy 06/26/24 15:48 Urine pH 6.0 (5.0-9.0) 06/26/24 15:48 Ur Specific [place] >= 1.030 (1.005-1.025) H 06/26/24 15:48 Urine Protein 100 (2+) mg/dL (Neg-Trace) H 06/26/24 15:48 Urine Glucose (UA) Negative mg/dL (Negative) 06/26/24 15:48 Urine Ketones Negative mg/dL (Negative) 06/26/24 15:48 Urine Blood Negative (Negative) 06/26/24 15:48 Urine Nitrite Negative (Negative) 06/26/24 15:48 Ur Leukocyte Esterase Small (1+) (Negative) H 06/26/24 15:48 Urine RBC 0-2 /HPF (0-2) 06/26/24 15:48 Urine WBC >50 /HPF (0-5) H 06/26/24 15:48 Ur Squamous Epith Cells 0-2 /HPF (0-2) 06/26/24 15:48 Urine Bacteria 4+ (None Seen) 06/26/24 15:48 Hyaline Casts 0-2 /LPF (0-2) 06/26/24 15:48 Influenza Type A (PCR) NEGATIVE (Negative) 06/26/24 12:44 Influenza Type B (PCR) NEGATIVE (Negative) 06/26/24 12:44 RSV RNA Qual (PCR) NEGATIVE (Negative) 06/26/24 12:44 SARS-CoV-2 RNA (RT-PCR) NEGATIVE (Negative) 06/26/24 12:44 Impressions Abdomen/Pelvis CT 06/26/24 13:33 IMPRESSION: 1. No central or segmental pulmonary emboli. 2. No acute process of the abdomen or pelvis identified. 3. Liver is mildly enlarged measuring 19.9 cm. 4. Bilateral renal hypodense foci demonstrating fluid attenuation statistically representing cysts, not requiring follow-up. 5. Mild right cortical renal thickening suggesting elements of medical renal right-sided nephrolithiasis or cirrhosis. 6. Small hiatal hernia. 7. Colonic diverticulosis without acute diverticulitis. 8. Prominent atherosclerotic calcifications of the abdominal aorta. Chest CTA 06/26/24 13:33 IMPRESSION: 1. No central or segmental pulmonary emboli. 2. No acute process of the abdomen or pelvis identified. 3. Liver is mildly enlarged measuring 19.9 cm. 4. Bilateral renal hypodense foci demonstrating fluid attenuation statistically representing cysts, not requiring follow-up. 5. Mild right cortical renal thickening suggesting elements of medical renal right-sided nephrolithiasis or cirrhosis. 6. Small hiatal hernia. 7. Colonic diverticulosis without acute diverticulitis. 8. Prominent atherosclerotic calcifications of the abdominal aorta. TTE 06/27/24: The left ventricular systolic function is hyperdynamic. The visually estimated ejection fraction is >70%. - The left atrium is moderately dilated. - There is severe mitral annular calcification. There is severe mitral valve stenosis. Findings Left Ventricle Normal left ventricular cavity size. There is mildly increased left ventricular wall thickness. The left ventricular systolic function is hyperdynamic. The visually estimated ejection fraction is >70%. There is no evidence of regional wall motion abnormalities. Evidence suggests grade I (mild) diastolic dysfunction. Discharge Plan Discharge Anticipated Discharge Date/Time: 06/27/24 15:39 Patient Disposition: Home, Self-Care Discharge Diagnosis: atypical chest pain CHF severe mitral stenosis UTI question of emphysema Referrals: Christie Mendez PA-C [Primary Care Provider] - 1 Week Prosper Restrepo MD [Physician] - 2 Weeks Discharge Medications: New cefuroxime axetil 500 mg Tablet 500 mg PO Q12H Qty: 10 0RF furosemide 20 mg tablet 20 mg PO QAM Qty: 30 0RF Continued metformin 500 mg tablet 500 mg PO BID amlodipine 10 mg tablet 10 mg PO BEDTIME simvastatin 20 mg tablet 20 mg PO DAILY ferrous sulfate [FeroSul] 325 mg (65 mg iron) tablet 325 mg PO BID omeprazole 20 mg capsule,delayed release(DR/EC) 20 mg PO DAILY@0630 labetalol 100 mg tablet 100 mg PO BID olmesartan 20 mg tablet 30 mg PO DAILY insulin glargine [Lantus Solostar U-100 Insulin] 100 unit/mL (3 mL) insulin pen 14 unit subcut BEDTIME Discharge Orders: Discharge Order (Routine); Ordered 06/27/24 Ordered By: Angelic Shah Diet: Low salt diet Activity on Discharge: As tolerated Stand Alone Forms: Patient Portal Discharge page Print Language: Romansh Other Ambulatory Orders: Basic Metabolic Panel (Routine) Timeframe: 3 Days Facility: [facility] - Location: Laboratory Ordered By: Angelic Shah B Type Natriuretic Peptide (Routine) Timeframe: 3 Days Facility: [facility] - Location: Laboratory Ordered By: Angelic Shah Magnesium (Routine) Timeframe: 3 Days Facility: [facility] - Location: Laboratory Ordered By: Angelic Shah Care Plan Goals: cardiac health Health Concerns: atypical chest pain CHF severe mitral stenosis UTI question of emphysema Plan of Treatment: Low-sodium diet: less than 2000 mg of sodium daily. Weigh yourself daily and call your doctor if your weight goes up by more than 3 lb/day or 5 lb/week. Take furosemide 20 mg once daily [diuretic]. Repeat labs in 3-4 days: BMP, magn esium, BNP. Follow up with [facility] in 2 weeks about your tight mitral valve. Take cefuroxime 500 mg twice daily for 5 days [antibiotic] Request PFTs [pulmonary function testing] from your primary care doctor for question of emphysema seen on CT scan. Please follow up with your primary care doctor within 1 week. Return to the hospital if you experience recurrent or worsening symptoms. Assessment: See Discharge Summary.
--- NOTE | 2024-06-27 13:20 | MHC.CM.PN ---
YING was addressed with Patient, original was given to her and a copy will be placed on the chart. Patient lives in a house with her Daughter and she uses a cane @ [employer]. Patient has been medically cleared for dc to home today, self care.
[2024-06-27 13:30] VITALS: BP 150/56; PULSE 77; RESP 16; TEMP 36.7; O2SAT 94
== END 2024-06-27 13:27 | disposition home or self-care (01) ==
LOC: HO.ED 16:33 → HO.EDOVER 17:48
PROVIDERS: Admitting Provider Family Medicine; Emergency Provider Emergency Medicine; PCP Physician Assistant; Visit Provider Family Medicine
DX: I05.0 Rheumatic mitral stenosis (principal); N39.0 Urinary tract infection, site not specified; I11.0 Hypertensive heart disease with heart failure; I50.31 Acute diastolic (congestive) heart failure; D72.829 Elevated white blood cell count, unspecified; J96.91 Respiratory failure, unspecified with hypoxia; R07.89 Other chest pain; R10.10 Upper abdominal pain, unspecified; R11.0 Nausea; E11.9 Type 2 diabetes mellitus without complications; J44.9 Chronic obstructive pulmonary disease, unspecified; Z03.818 Encounter for observation for suspected exposure to other biological agents ruled out; Z79.899 Other long term (current) drug therapy
CPT/HCPCS: 0241U; 36415; 71275; 74177; 80048; 80076; 81001; 82947; 83605; 83735; 83880; 84145; 84484; 85025; 85027; 85610; 86140; 87040; 87086; 87088; 87186; 93005; 93306; 96365; 96372; 96375; 97161; 99222; 99285; J0696; J1650; J1940; J2919; Q9957; Q9967

== ENCOUNTER → 2024-06-26 10:54 | Outpatient (BNV) | payer MEDICARE, SELFPAY | PROVIDERS: Admitting Provider Family Medicine; Emergency Provider Emergency Medicine; PCP Physician Assistant; Visit Provider Internal Medicine | DX: R07.9 Chest pain, unspecified (principal); R94.31 Abnormal electrocardiogram [ECG] [EKG] | CPT/HCPCS: 93010 ==

== ENCOUNTER 2024-06-26 17:43 | Outpatient (BNV) | payer MEDICARE, SELFPAY | END 2024-06-27 07:00 | PROVIDERS: Admitting Provider Family Medicine; Emergency Provider Emergency Medicine; PCP Physician Assistant; Visit Provider Internal Medicine | DX: I34.2 Nonrheumatic mitral (valve) stenosis (principal); I34.0 Nonrheumatic mitral (valve) insufficiency; I34.81 Nonrheumatic mitral (valve) annulus calcification; I36.1 Nonrheumatic tricuspid (valve) insufficiency | CPT/HCPCS: 93306 ==

== ENCOUNTER → 2024-06-26 17:43 | Outpatient (BNV) | payer MEDICARE, SELFPAY | PROVIDERS: Admitting Provider Family Medicine; Emergency Provider Emergency Medicine; PCP Physician Assistant; Visit Provider Family Medicine | DX: D72.829 Elevated white blood cell count, unspecified (principal); J96.01 Acute respiratory failure with hypoxia; R07.89 Other chest pain; N39.0 Urinary tract infection, site not specified; I50.9 Heart failure, unspecified; J43.9 Emphysema, unspecified; I50.31 Acute diastolic (congestive) heart failure; I05.0 Rheumatic mitral stenosis | CPT/HCPCS: 99223; 99239 ==

== ENCOUNTER 2024-07-14 12:38 | Outpatient (AMB) | payer MEDICARE, SELFPAY ==
--- NOTE | 2024-07-14 12:39 | MHC.OFFVIS ---
Vital Signs 07/14/24 12:40 Height 5 ft 4 in Weight 141 lb 1.533 oz BMI 24.2 BP 116/60 Blood Pressure Location Lt brachial Position Sitting Pulse 85 Pulse Source Pulse Oximeter Intake Visit Reasons: [facility] ED F/U Allergies No Known Allergies Allergy (Verified 06/26/24 10:53) Medication List - Last Reconciled 07/14/24 by Prosper Restrepo MD amlodipine 10 mg PO BEDTIME ferrous sulfate (FeroSul) 325 mg PO BID furosemide 20 mg PO QAM insulin glargine (Lantus Solostar U-100 Insulin) 14 units subcut BEDTIME labetalol 100 mg PO BID metformin 500 mg PO BID olmesartan 30 mg PO DAILY omeprazole 20 mg PO DAILY@0630 simvastatin 20 mg PO DAILY HPI Comments Details: Gayle is here for consultation after recent visit to the emergency room. She was admitted for chest pain and shortness of breath. She stayed overnight. Troponins were unremarkable. EKG without any acute changes. Treated as respiratory failure and she was discharged home. Echocardiogram at that time had shown severe calcific mitral stenosis. Otherwise, patient states she does not really have any known cardiac issues. No known coronary disease or myocardial infarction or cardiomyopathy or in fact anything cardiac sounding. No known arrhythmias either. Many comorbidities including diabetes, hypertension, dyslipidemia. Since the time of discharge, she states she is feeling fine. No further symptoms. [facility] Medical History (Updated 07/14/24 @ 13:14 by Prosper Restrepo MD) Congestive heart failure Hiatal hernia HTN (hypertension) Diabetes Surgical History H/O: hysterectomy Family History (Updated 07/14/24 @ 12:47 by Kezia Gracia) Father Heart attack Mother Heart attack Social History (Updated 07/14/24 @ 12:48 by Kezia Gracia) Alcohol intake: never Patient Tobacco Use Status: Never used Tobacco service: No Review of Systems Const Denies weakness ENT Denies dizziness Card Denies chest pain, Denies chest pain with activity, Denies syncope, Denies rapid heart rate, Denies pedal edema, Denies edema, Denies leg edema, Denies lightheadedness, Denies palpitations, Denies dyspnea, Denies dyspnea on exertion and Denies orthopnea Resp Denies cough, Denies dyspnea and Denies dyspnea on exertion GI Denies hematochezia and Denies change in stool character Musc Denies abnormal gait, Denies muscle cramps, Denies muscle weakness, Denies numbness, Denies radiating pain into limb and Denies tingling Neuro Denies abnormal gait, Denies dizziness, Denies syncope, Denies numbness, Denies tingling and Denies weakness Endo Denies palpitations Physical Exam Vital Signs: Last Vital Signs Pulse 85 07/14/24 12:40 BP 116/60 07/14/24 12:40 BMI result Body Mass Index 24.2 Const General: comfortable and no acute distress Orientation/consciousness: patient oriented x3 HEENT Other: Unremarkable Head: Yes normal to inspection Neck Neck: Yes normal visual inspection Chest Chest palpation & inspection: normal inspection of the chest Resp Auscultation: clear to auscultation bilaterally Cardio Palpation: normal PMI Heart sounds: S1 normal heart sound present, S2 normal heart sound present, no gallops, no murmurs and no rubs GI Palpation (GI): Soft to palpation Back/Spine/Pelvis Other: unremarkable Skin General skin exam: no rashes or lesions noted Neuro General: patient oriented x3 Extrem General: Yes normal to inspection Psych Mental Status: mental status grossly normal Office Procedures EKG Details: EKG with possibly atrial flutter with variable block at 87/Min. Rightward axis and cannot exclude old septal infarct. [id number], Complete Assessment & Plan Assessment & Plan (1) PAF (paroxysmal atrial fibrillation): Code(s): I48.0 - Paroxysmal atrial fibrillation Category: Medical Plan: EKG from ER visit showed sinus rhythm with prolonged AL at 242 milliseconds with no acute findings otherwise. Today, in likely atrial flutter at 87/Min. Suspect she might have had a brief atrial arrhythmia episode leading to acute heart failure type presentation in the setting of underlying severe calcific mitral stenosis. We will do a Holter monitor. She had some labs yesterday through her own PCP and will get that. Based on creatinine, Eliquis dosing to be decided. She is on Labetalol for probably hypertension and rate is already well controlled. Unless she spontaneously converts, cardioversion can be planned for the future. (2) Non-rheumatic mitral valve stenosis: Code(s): I34.2 - Nonrheumatic mitral (valve) stenosis Category: Medical Plan: In the echocardiogram, there is severe mitral annular calcification. Mean gradient across the mitral valve was 16 mm Hg with a calculated valve area of 0.9 sq cm. Overall thought to be severe mitral stenosis. Stroke volume is on the higher side with hyperdynamic LVEF but suspect she still has likely significant calcific valve disease. Likely longstanding issue. Currently seems stable but may need intervention, possibly percutaneous-TMVR based on symptoms once back in sinus rhythm. Plan Otherwise, will need some form ischemic evaluation. Either stress test or cardiac catheterization. Can decide during follow-up after the arrhythmia issue addressed. Discussed with daughter. Orders: Orders ECG 3 day holter monitor Today I48.0 - Paroxysmal atrial fibrillation Medications: Discontinued cefuroxime axetil Discontinued Reason: Patient no longer taking 500 mg PO Q12H 10 tabs 0RF Coding Level of Care Code New Pt Level 4 (08815) Diagnoses PAF (paroxysmal atrial fibrillation) I48.0 Non-rheumatic mitral valve stenosis I34.2 CPT Codes EKG - CPT: 80015-[id number], Complete ([id number])
[2024-07-14 12:40] VITALS: BP 116/60; PULSE 85; BMI 24.2
== END 2024-07-14 13:22 | disposition home or self-care (01) ==
PROVIDERS: PCP Physician Assistant; Visit Provider Internal Medicine
DX: I48.0 Paroxysmal atrial fibrillation (principal); I34.2 Nonrheumatic mitral (valve) stenosis; I44.30 Unspecified atrioventricular block
CPT/HCPCS: 93010; 99214

== ENCOUNTER → 2024-07-14 12:38 | Outpatient (BNVA) | payer MEDICARE, SELFPAY | PROVIDERS: PCP Physician Assistant; Visit Provider Internal Medicine | DX: I34.2 Nonrheumatic mitral (valve) stenosis (principal); I10 Essential (primary) hypertension; I48.0 Paroxysmal atrial fibrillation | CPT/HCPCS: 93005; 99212 ==

== ENCOUNTER → 2024-07-28 09:49 | Outpatient (REF) | payer MEDICARE, SELFPAY ==
--- NOTE | 2024-07-28 09:52 | HM_ITS ---
Conclusion: 1. Patient was monitored for total period of 3 days and 2 hours 2. Baseline was normal sinus rhythm with average heart of 80 beats per minute 3. Intermittent episodes of atrial fibrillation noted with total burden of 36% with longest episode of 20 hours on day 1 with the fastest heart rate of 125 beats per minute 4. Rare PACs and PVCs noted 5. One prolonged RR interval consistent with a pause up to 2.63 seconds, happening at 18:47 6. No patient reported events MTDD
== END ==
LOC: HO.CARD 09:49
PROVIDERS: PCP Physician Assistant; Visit Provider Internal Medicine
DX: I48.0 Paroxysmal atrial fibrillation (principal)
CPT/HCPCS: 93242

== ENCOUNTER → 2024-07-28 09:52 | Outpatient (BNV) | payer MEDICARE, SELFPAY | PROVIDERS: PCP Physician Assistant; Visit Provider Internal Medicine Cardiovascular Disease | DX: I48.91 Unspecified atrial fibrillation (principal) | CPT/HCPCS: 93244 ==

== ENCOUNTER 2024-09-05 13:48 | Outpatient (AMB) | payer MEDICARE, SELFPAY ==
[2024-09-05 14:05] VITALS: BP 140/62; PULSE 86; BMI 23.5
--- NOTE | 2024-09-05 14:05 | MHC.OFFVIS ---
Vital Signs 09/05/24 14:05 Height 5 ft 4 in Weight 136 lb 10.986 oz BMI 23.5 BP 140/62 H Blood Pressure Location Lt brachial Position Sitting Pulse 86 Pulse Source Monitor Intake Visit Reasons: 3-4 wk follow up/Holter Allergies No Known Allergies Allergy (Verified 06/26/24 10:53) Medication List - Last Reconciled 09/05/24 by Prosper Restrepo MD amlodipine 10 mg PO BEDTIME apixaban (Eliquis) 5 mg PO BID 90 days ferrous sulfate (FeroSul) 325 mg PO BID furosemide 20 mg PO QAM insulin glargine (Lantus Solostar U-100 Insulin) 14 units subcut BEDTIME labetalol 100 mg PO BID metformin 500 mg PO BID olmesartan 30 mg PO DAILY omeprazole 20 mg PO DAILY@0630 simvastatin 20 mg PO DAILY HPI Comments Details: Gayle returns for follow-up. Recently seen in consultation after ER visit. She was admitted for chest pain and shortness of breath. She stayed overnight. Troponins were unremarkable. EKG without any acute changes. Treated as respiratory failure and she was discharged home. Echocardiogram at that time had shown severe calcific mitral stenosis. Otherwise, patient states she does not really have any known cardiac issues. No known coronary disease or myocardial infarction or cardiomyopathy or in fact anything cardiac sounding. No known arrhythmias either. Many comorbidities including diabetes, hypertension, dyslipidemia. No new issues since last seen. [facility] Medical History (Updated 07/14/24 @ 13:14 by Prosper Restrepo MD) Congestive heart failure Hiatal hernia HTN (hypertension) Diabetes Surgical History H/O: hysterectomy Family History (Updated 07/14/24 @ 12:47 by Kzeia Gracia) Father Heart attack Mother Heart attack Social History (Updated 07/14/24 @ 12:48 by Kezia Gracia) Alcohol intake: never Patient Tobacco Use Status: Never used Tobacco service: No Review of Systems Const Denies weakness ENT Denies dizziness Card Denies chest pain, Denies chest pain with activity, Denies syncope, Denies rapid heart rate, Denies pedal edema, Denies edema, Denies leg edema, Denies lightheadedness, Denies palpitations, Denies dyspnea, Denies dyspnea on exertion and Denies orthopnea Resp Denies cough, Denies dyspnea and Denies dyspnea on exertion GI Denies hematochezia and Denies change in stool character Musc Denies abnormal gait, Denies muscle cramps, Denies muscle weakness, Denies numbness, Denies radiating pain into limb and Denies tingling Neuro Denies abnormal gait, Denies dizziness, Denies syncope, Denies numbness, Denies tingling and Denies weakness Endo Denies palpitations Physical Exam Vital Signs: Last Vital Signs Pulse 86 09/05/24 14:05 BP 140/62 H 09/05/24 14:05 BMI result Body Mass Index 23.5 Const General: comfortable and no acute distress Orientation/consciousness: patient oriented x3 HEENT Other: Unremarkable Head: Yes normal to inspection Neck Neck: Yes normal visual inspection Chest Chest palpation & inspection: normal inspection of the chest Resp Auscultation: clear to auscultation bilaterally Cardio Palpation: normal PMI Heart sounds: S1 normal heart sound present, S2 normal heart sound present, no gallops, no murmurs and no rubs GI Palpation (GI): Soft to palpation Back/Spine/Pelvis Other: unremarkable Skin General skin exam: no rashes or lesions noted Neuro General: patient oriented x3 Extrem General: Yes normal to inspection Psych Mental Status: mental status grossly normal Office Procedures EKG Details: EKG with underlying sinus rhythm at 86/Min; OR prolongation to 310 milliseconds; cannot exclude old lateral infarct; [place]. [id number], Complete Assessment & Plan Assessment & Plan (1) PAF (paroxysmal atrial fibrillation): Code(s): I48.0 - Paroxysmal atrial fibrillation Category: Medical Plan: In the recent Holter, underlying atrial fibrillation with a 36% burden. There is evidence of bradyarrhythmia but nothing prolonged. We can stop her labetalol. Start amiodarone. We will recheck Holter in about 2 weeks to ensure there is no significant bradycardia/heart blocks while on amiodarone. Discussed about this at length with daughter. If indeed she has tachy/Andrey, then may need a permanent pacemaker. Continue anticoagulation. (2) Non-rheumatic mitral valve stenosis: Code(s): I34.2 - Nonrheumatic mitral (valve) stenosis Category: Medical Plan: In the echocardiogram, there is severe mitral annular calcification. Mean gradient across the mitral valve was 16 mm Hg with a calculated valve area of 0.9 sq cm. Overall thought to be severe mitral stenosis. Stroke volume is on the higher side with hyperdynamic LVEF but suspect she still has likely significant calcific valve disease. Stable at this time. If necessary, consider percutaneous interventions. Orders: Orders ECG 3 day holter monitor 09/19/24 I48.0 - Paroxysmal atrial fibrillation Medications: New amiodarone start after 30 day loading dose. 200 mg PO DAILY 90 tabs 0RF 90 days amiodarone 200 mg PO BID 60 tabs 0RF 30 days Coding Level of Care Code Est Pt Level 4 (75559) Diagnoses PAF (paroxysmal atrial fibrillation) I48.0 Non-rheumatic mitral valve stenosis I34.2 CPT Codes EKG - CPT: 82174-[id number], Complete ([id number])
== END 2024-09-05 14:42 | disposition home or self-care (01) ==
PROVIDERS: PCP Physician Assistant; Visit Provider Internal Medicine
DX: I48.0 Paroxysmal atrial fibrillation (principal); I34.2 Nonrheumatic mitral (valve) stenosis
CPT/HCPCS: 93010; 99214

== ENCOUNTER → 2024-09-05 13:48 | Outpatient (BNVA) | payer MEDICARE, SELFPAY | PROVIDERS: PCP Physician Assistant; Visit Provider Internal Medicine | DX: I48.0 Paroxysmal atrial fibrillation (principal); I34.2 Nonrheumatic mitral (valve) stenosis; R94.31 Abnormal electrocardiogram [ECG] [EKG]; I44.0 Atrioventricular block, first degree | CPT/HCPCS: 93005; 99212 ==

== ENCOUNTER → 2024-09-16 11:35 | Outpatient (REF) | payer MEDICARE, SELFPAY ==
--- NOTE | 2024-09-16 11:37 | HM_ITS ---
* Total monitoring time 3 days. * Underlying rhythm is sinus with an average rate of 85/Min. * Rare supraventricular ectopy. * Evidence of [place] type 1 second-degree heart block during sleep hours. No evidence of high-grade AV blocks. * No patient markers or diary events. MTDD
== END ==
LOC: HO.CARD 11:35
PROVIDERS: PCP Physician Assistant; Visit Provider Internal Medicine
DX: I48.0 Paroxysmal atrial fibrillation (principal)
CPT/HCPCS: 93242

== ENCOUNTER → 2024-09-16 11:37 | Outpatient (BNV) | payer MEDICARE, SELFPAY | PROVIDERS: PCP Physician Assistant; Visit Provider Internal Medicine | DX: I44.1 Atrioventricular block, second degree (principal) | CPT/HCPCS: 93244 ==

== ENCOUNTER 2024-11-10 09:21 | Outpatient (AMB) | payer MEDICARE, SELFPAY ==
[2024-11-10 09:48] VITALS: BP 140/62; PULSE 78; BMI 25.1
--- NOTE | 2024-11-10 09:48 | MHC.OFFVIS ---
Vital Signs 11/10/24 09:48 Height 5 ft 4 in Weight 146 lb 6.191 oz BMI 25.1 BP 140/62 H Blood Pressure Location Lt brachial Position Sitting Pulse 78 Pulse Source Monitor Intake Visit Reasons: 2 mth f/up holter Accompanied by: Daughter Allergies No Known Allergies Allergy (Verified 06/26/24 10:53) Medication List - Last Reconciled 11/10/24 by Prosper Restrepo MD amiodarone 200 mg PO DAILY 90 days amlodipine 10 mg PO BEDTIME apixaban (Eliquis) 5 mg PO BID 90 days ferrous sulfate (FeroSul) 325 mg PO BID furosemide 20 mg PO QAM PRN insulin glargine (Lantus Solostar U-100 Insulin) 14 units subcut BEDTIME metformin 500 mg PO BID olmesartan 30 mg PO DAILY omeprazole 20 mg PO DAILY@0630 simvastatin 20 mg PO DAILY HPI Comments Details: Gayle returns for follow-up. Recently seen in consultation after ER visit. She was admitted for chest pain and shortness of breath. She stayed overnight. Troponins were unremarkable. EKG without any acute ischemic changes. Treated as respiratory failure and she was discharged home. Echocardiogram at that time had shown severe calcific mitral stenosis. Otherwise, patient states she does not really have any known cardiac issues. No known coronary disease or myocardial infarction or cardiomyopathy or in fact anything cardiac sounding. No known arrhythmias either. Many comorbidities including diabetes, hypertension, dyslipidemia. After that, she underwent further workup and diagnosed with atrial fibrillation. Was felt that the initial hospitalization could have been from atrial fibrillation causing congestive heart failure hospitalization, especially in the setting of mitral stenosis. She also has evidence of conduction system disease and hence she has been put on amiodarone to keep her in sinus rhythm. She does have a long ID. Overall, she states she is actually feeling very good. No chest pain or shortness of breath or in fact any cardiac symptoms at all. Apart from frailty, she is doing quite well. Comes with a walker. [facility] Medical History (Updated 07/14/24 @ 13:14 by Prosper Restrepo MD) Congestive heart failure Hiatal hernia HTN (hypertension) Diabetes Surgical History H/O: hysterectomy Family History Father Heart attack Mother Heart attack Social History Alcohol intake: never Patient Tobacco Use Status: Never used Tobacco service: No Review of Systems Const Denies chills, Denies fatigue, Denies fever(s), Denies frequent falls, Denies weakness, Denies weight gain and Denies weight loss ENT Denies dizziness Card Denies chest pain, Denies leg edema, Denies lightheadedness, Denies palpitations, Denies dyspnea and Denies dyspnea on exertion Resp Denies cough, Denies dyspnea and Denies dyspnea on exertion GI Denies hematochezia Musc Denies abnormal gait, Denies muscle weakness, Denies numbness, Denies radiating pain into limb and Denies tingling Neuro Denies abnormal gait, Denies dizziness, Denies frequent falls, Denies numbness, Denies tingling and Denies weakness Endo Denies fatigue and Denies palpitations Physical Exam Vital Signs: Last Vital Signs Pulse 78 11/10/24 09:48 BP 140/62 H 11/10/24 09:48 BMI result Body Mass Index 25.1 Const General: comfortable and no acute distress Orientation/consciousness: patient oriented x3 HEENT Other: Unremarkable Head: Yes normal to inspection Neck Neck: Yes normal visual inspection Chest Chest palpation & inspection: normal inspection of the chest Resp Auscultation: clear to auscultation bilaterally Cardio Palpation: normal PMI Heart sounds: S1 normal heart sound present, S2 normal heart sound present, no gallops, no murmurs and no rubs GI Palpation (GI): Soft to palpation Back/Spine/Pelvis Other: unremarkable Skin General skin exam: no rashes or lesions noted Neuro General: patient oriented x3 Extrem General: Yes normal to inspection Psych Mental Status: mental status grossly normal Office Procedures EKG Details: EKG with underlying sinus rhythm at 78/Min; ID prolongation to 304 millisecond; rightward axis; can not exclude old septal infarct; [place] [id number], Complete Assessment & Plan Assessment & Plan (1) PAF (paroxysmal atrial fibrillation): Code(s): I48.0 - Paroxysmal atrial fibrillation Category: Medical Plan: Initial Holter showed atrial fibrillation burden of 36%. Also with evidence of bradyarrhythmias but nothing profound. Labetalol has been stopped and she is on amiodarone. Holter done on this regimen shows underlying sinus rhythm with an average rate of 85/Min. Evidence of Mobitz type 1 block during sleep hours but no high-grade blocks. Hence continue current regimen off amiodarone/Eliquis. We discussed about probable need for pacemaker in the future. Will need to follow the EKGs for progressive ID prolongation or any heart blocks. Also discussed about emergency precautions if indeed she developed symptoms like presyncope or syncope. They understand. (2) Non-rheumatic mitral valve stenosis: Code(s): I34.2 - Nonrheumatic mitral (valve) stenosis Category: Medical Plan: In the echocardiogram, there is severe mitral annular calcification. Mean gradient across the mitral valve was 16 mm Hg with a calculated valve area of 0.9 sq cm. Overall thought to be severe mitral stenosis. Stroke volume is on the higher side with hyperdynamic LVEF but suspect she still has likely significant calcific valve disease. Stable at this time. If necessary, consider percutaneous interventions. (3) Acute heart failure with preserved ejection fraction (HFpEF): Code(s): I50.31 - Acute diastolic (congestive) heart failure Category: Medical Plan: Likely brought on from atrial fibrillation with rapid rate in the setting of mitral stenosis. Currently, euvolemic. No longer taking Lasix. Plan Discussed with family who came for appointment. Coding Level of Care Code Est Pt Level 4 (17420) Diagnoses PAF (paroxysmal atrial fibrillation) I48.0 Non-rheumatic mitral valve stenosis I34.2 Acute heart failure with preserved ejection fraction (HFpEF) I50.31 CPT Codes EKG - CPT: 94596-[id number], Complete ([id number])
== END 2024-11-10 10:16 | disposition home or self-care (01) ==
PROVIDERS: PCP Physician Assistant; Visit Provider Internal Medicine
DX: I48.0 Paroxysmal atrial fibrillation (principal); I34.2 Nonrheumatic mitral (valve) stenosis; I50.31 Acute diastolic (congestive) heart failure
CPT/HCPCS: 93010; 99214

== ENCOUNTER → 2024-11-10 09:21 | Outpatient (BNVA) | payer MEDICARE, SELFPAY | PROVIDERS: PCP Physician Assistant; Visit Provider Internal Medicine | DX: I48.0 Paroxysmal atrial fibrillation (principal); I10 Essential (primary) hypertension; I34.2 Nonrheumatic mitral (valve) stenosis; I50.31 Acute diastolic (congestive) heart failure | CPT/HCPCS: 93005; 99212 ==

== ENCOUNTER 2025-06-12 10:44 | Outpatient (AMB) | payer MEDICARE, SELFPAY ==
--- NOTE | 2025-06-12 10:54 | A.OFFVIS_ITS ---
Vital Signs 06/12/25 10:55 Height 5 ft 4 in Weight 141 lb 1.533 oz BMI 24.2 BP 140/78 H Blood Pressure Location Lt brachial Position Sitting Pulse 77 Pulse Source Monitor Intake Visit Reasons: overdue 4 mth fu (fx pelvis) Allergies No Known Allergies Allergy (Verified 06/26/24 10:53) Medication List - Last Reconciled 06/12/25 by Prosper Restrepo MD amiodarone 200 mg PO DAILY amlodipine 10 mg PO BEDTIME apixaban (Eliquis) 5 mg PO BID 90 days ferrous sulfate (FeroSul) 325 mg PO BID insulin glargine (Lantus Solostar U-100 Insulin) 14 units subcut BEDTIME metformin 500 mg PO BID olmesartan 40 mg PO DAILY omeprazole 20 mg PO DAILY@0630 pravastatin 20 mg PO BEDTIME HPI Comments Details: Gayle returns for follow-up regarding paroxysmal atrial fibrillation as well as mitral stenosis. Many comorbidities including diabetes, hypertension dyslipidemia. In the past, she had hospitalization for congestive heart failure possibly related to atrial fibrillation but has been stable from cardiac since. However, there was apparently a fall with pelvic fracture and this was managed conservatively. Daughter is concerned that she is on Eliquis and issues related to that. Otherwise, no clear-cut cardiac concerns. No angina or shortness of breath. Frailty from age. ON LICENSE OF [facility] Medical History (Updated 06/12/25 @ 12:25 by Prosper Restrepo MD) Congestive heart failure Hiatal hernia HTN (hypertension) Diabetes Surgical History H/O: hysterectomy Family History Father Heart attack Mother Heart attack Social History Alcohol intake: never Patient Tobacco Use Status: Never used Tobacco service: No Review of Systems Const Denies weakness ENT Denies dizziness Card Denies chest pain, Denies chest pain with activity, Denies syncope, Denies rapid heart rate, Denies pedal edema, Denies edema, Denies leg edema, Denies lightheadedness, Denies palpitations, Denies dyspnea, Denies dyspnea on exertion and Denies orthopnea Resp Denies cough, Denies dyspnea and Denies dyspnea on exertion GI Denies hematochezia and Denies change in stool character Musc Denies abnormal gait, Denies muscle cramps, Denies muscle weakness, Denies numbness, Denies radiating pain into limb and Denies tingling Neuro Denies abnormal gait, Denies dizziness, Denies syncope, Denies numbness, Denies tingling and Denies weakness Endo Denies palpitations Physical Exam Vital Signs: Last Vital Signs Pulse 77 06/12/25 10:55 BP 140/78 H 06/12/25 10:55 BMI result Body Mass Index 24.2 Const General: comfortable and no acute distress Orientation/consciousness: patient oriented x3 HEENT Other: Unremarkable Head: Yes normal to inspection Neck Neck: Yes normal visual inspection Chest Chest palpation & inspection: normal inspection of the chest Resp Auscultation: clear to auscultation bilaterally Cardio Palpation: normal PMI Heart sounds: S1 normal heart sound present, S2 normal heart sound present, no gallops, no murmurs and no rubs GI Palpation (GI): Soft to palpation Back/Spine/Pelvis Other: unremarkable Skin General skin exam: no rashes or lesions noted Neuro General: patient oriented x3 Extrem General: Yes normal to inspection Psych Mental Status: mental status grossly normal Office Procedures EKG Details: EKG with underlying sinus rhythm at 77/Min; prolonged HI to 316 milliseconds; cannot exclude old anterior infarct or lateral infarct could be from body habitus. [id number], Complete Assessment & Plan Assessment & Plan (1) PAF (paroxysmal atrial fibrillation): Code(s): I48.0 - Paroxysmal atrial fibrillation Category: Medical Plan: Continue amiodarone. We will get TSH from PCP. With regard to anticoagulation/fall and pelvic fracture we discussed about Watchman device as an alternative. They would like to just think about that for now. At the current time, continue Eliquis. High-risk of stroke with stopping this. We discussed about this issue in great detail. With regard to conduction system disease on the EKG, we will need to monitor. Possible need for pacemaker in the future. (2) Non-rheumatic mitral valve stenosis: Code(s): I34.2 - Nonrheumatic mitral (valve) stenosis Category: Medical Plan: Evidence of calcific mitral stenosis on the echocardiogram. May recheck before next visit. (3) HTN (hypertension): Code(s): I10 - Essential (primary) hypertension Category: Medical Plan: Borderline high blood pressure. Per patient, Olmesartan dose has been increased recently by PCP. Plan Discussion Notes I discussed with the patient the risks and benefits of continuing Eliquis versus considering the Watchman procedure for atrial fibrillation management. We reviewed the potential for reducing the dosage of Eliquis and the implications of such a change. The patient was informed about the importance of maintaining blood pressure control and the recent increase in olmesartan dosage. We also discussed the current diabetes management plan with metformin and its effectiv eness. Patient was informed and verbally consented to the use of an ambient scribe for clinic note documentation during this visit. Orders: Orders ECG 3 day holter monitor 3 Months I48.0 - Paroxysmal atrial fibrillation, R00.2 - Palpitations CA echo transthoracic complete 3 Months I34.2 - Nonrheumatic mitral (valve) stenosis Patient Instructions: - Consider the Watchman procedure as an alternative to Eliquis for atrial fibrillation management. - Continue taking olmesartan as prescribed for blood pressure control. - Follow up with the primary care provider for routine monitoring and any necessary lab work. Coding Level of Care Code Est Pt Level 4 (20845) Complex EM visit Add On G2211 Diagnoses PAF (paroxysmal atrial fibrillation) I48.0 Non-rheumatic mitral valve stenosis I34.2 HTN (hypertension) I10 CPT Codes EKG - CPT: 05895-[id number], Complete ([id number])
[2025-06-12 10:55] VITALS: BP 140/78; PULSE 77; BMI 24.2
--- OUTSIDE RECORDS SUMMARY | 2025-06-12 11:58 | XMS_ITS | Clinical Summary ---
Author Organization [facility] Address [address] [place] [address] Phone Care Team Providers Care Money Position Officer Name Role Phone Christie Mendez Primary Care Provider [phone] Allergies No known active allergies Medications omeprazole OTC (PriLOSEC OTC) 20 mg EC tablet Take 1 tablet (20 mg total) by mouth 1 (one) time each day. Do not crush, chew, or split. Active pravastatin (PRAVACHOL) 20 mg tablet Take 1 tablet (20 mg total) by mouth at bedtime. Active apixaban (ELIQUIS) 5 mg tabletIndicatio ns:a fib Take 1 tablet (5 mg total) by mouth 2 (two) times a day. Active multivitamin tablet Take 1 tablet by mouth 1 (one) time each day. Active amiodarone (PACERONE) 200 mg tablet Take 1 tablet (200 mg total) by mouth 1 (one) time each day. Active amLODIPine (NORVASC) 10 mg tablet Take 1 tablet (10 mg total) by mouth 1 (one) time each day. Active insulin glargine (LANTUS) 100 unit/mL injectionIndica tions:type 2 diabetes mellitus Inject 12 Units under the skin at bedtime. Active metFORMIN (GLUCOPHAGE) 500 mg tabletIndicatio ns:type 2 diabetes mellitus Take 1 tablet (500 mg total) by mouth 2 (two) times a day with meals. 03/15/2025 Active Admelog U-100 insulin lispro 100 unit/mL injectionIndica tions:type 2 diabetes mellitus Inject 2-12 Units under the skin 3 (three) times a day before meals. -Administer within 15 minutes of a meal 03/15/2025 Active losartan (COZAAR) 50 mg tablet Take 1 tablet (50 mg total) by mouth 1 (one) time each day. 03/16/2025 Active Active Problems Problem Noted Date Diagnosed Date Chronic atrial fibrillation ([facility] V24, [facility] V28) 03/07/2025 Pubic ramus fracture ([facility] V24, [facility] V28) 03/06/2025 Encounters Date Type Department Care Team Description 06/05/2025 8:04 AM EDT - 06/05/2025 11:59 PM EDT Hospital Encounter [facility] Ortho Xray [address] [place] [address] Pain Discharge Disposition: Home or Self Care 03/13/2025 Plan of Care Documentation [facility] [address] [place] [address] 03/06/2025 1:26 PM EDT - 03/15/2025 12:35 PM EDT Hospital Encounter [facility] [address] [place] [id number] Tessa Adam, Pubic ramus fracture ([facility] V24, [facility] V28) [S32.599A] (Primary Dx); Closed fracture of ramus of right pubis with routine healing, subsequent encounter Discharge Disposition: Group Home Facility from Last 3 Months Medical History Medical History Date Comments Diabetes mellitus ([facility] V24, [facility] V28) Hypertension Hyperlipidemia Social History Tobacco Use Types Packs/Day Years Used Date Smoking Tobacco: Never Passive Smoke Exposure: Never Smokeless Tobacco: Never Tobacco Cessation:Counseling Given: No Health Literacy Answer Date Recorded How often do you need to hav e someone help you when you read instructions, pamphlets, or other written material from your doctor or pharmacy? Always 03/14/2025 Caregiver: How often do you need to have someone help you when you read instructions, pamphlets, or other written material from your doctor or pharmacy? Not on file 03/14/2025 Transportation Answer Date Recorded Has the lack of transportati on kept you from meetings, work, or from getting things needed for daily living? No Has the lack of transportati on kept you from medical appointments or from getting medications? No 03/07/2025 Social Isolation Answer Date Recorded How often do you feel lonely or isolated from those around you? Sometimes 03/14/2025 Food Risk Answer Date Recorded Within the past 12 months we worried whether our food would run out before we got money to buy more. Never true 03/07/2025 Within the past 12 months th e food we bought just didn't last and we didn't have money to get more. Never true 03/07/2025 Interpersonal Safety Answer Date Record ed Physical Abuse 03/06/2025 Verbal Abuse 03/06/2025 Comments Unknown Sex and Gender Information Value Date Recorded Sex Assigned at Female 03/05/2025 2:59 PM EDT Legal Sex Female 2:51 PM EDT Gender Identity Female 03/05/2025 2:59 PM EDT Sexual Orientation Straight 03/05/2025 2: 59 PM EDT Obstetrics History Last Filed Vital Signs Vital Sign Reading Time Taken Comments Blood Pressure 139/52 03/15/2025 9:13 AM EDT Pulse 79 03/15/2025 9:13 AM EDT Temperature 36.4 C (97.5 F) 03/15/2025 9:13 AM EDT Respiratory Rate 18 03/15/2025 3:35 AM EDT Oxygen Saturation 96% 03/15/2025 3:35 AM EDT Inhaled Oxygen Concentration - - Weight 64.8 kg (142 lb 12.8 oz) 03/12/2025 2:00 PM EDT Height 165.1 cm (5' 5 ) 03/06/2025 10:3 6 AM EDT Body Mass Index 23.76 03/06/2025 10:36 AM EDT Plan of Treatment Health Maintenance Due Date Last Done Comments Diabetes: Annual Foot Exam 01/20/1950 Diabetes: Annual Retina Eye Exam 01/20/1950 DTaP,Tdap,and Td Vaccines (1 - Tdap) 01/20/1959 Pneumococcal Vaccine: 50+ Years (1 of 2 - PCV) 01/20/1959 RSV Immunization Adult Patients (1 - 1-dose 75+ series) 01/20/2015 COVID-19 Vaccine ( - season) 2024 Cholesterol Screening (Lipid Panel) 03/05/2025 Medicare Annual Wellness Visit 03/05/2025 Osteoporosis Screening (Bone Density Screening) 03/05/2025 Diabetes: Annual Urine Albumin-Creatinine Ratio (uACR) 03/10/2025 Diabetes: Blood Sugar Control Test (HGBA1C) 03/10/2025 Influenza Vaccine (#1) 2025 08/17/2024, 2022 Social Influencers of Health Screening 03/14/2026 03/14/2025 Falls Risk Assessment 03/15/2026 03/15/2025 Diabetes: Annual GFR (Glomerular Filtration Rate) 03/16/2026 03/16/2025, 03/15/2025, 03/12/2025, Additional history exists Hypertension/CHF/CAD Annual BMP Blood Test 03/16/2026 03/16/2025, 03/15/2025, 03/12/2025, Additional history exists Zoster Vaccines Completed 08/07/2023, 05/23/2023 Depression Screening Completed 03/14/2025 HIB Vaccines Aged Out No longer eligi ble based on patient's age to complete this topic HPV Vaccines Aged Out No longer eligi ble based on patient's age to complete this topic Hepatitis A Vaccines Aged Out No long er eligible based on patient's age to complete this topic Hepatitis B Vaccines Aged Out No long er eligible based on patient's age to complete this topic IPV Vaccines Aged Out No longer eligi ble based on patient's age to complete this topic MMR Vaccines Aged Out No longer eligi ble based on patient's age to complete this topic Meningococcal ACWY Vaccine Aged Out N o longer eligible based on patient's age to complete this topic Meningococcal B Vaccine Aged Out No l onger eligible based on patient's age to complete this topic RSV Immunization Patients Under 20 months Aged Out No longer eligible based on patient's age to complete this topic Varicella Vaccines Aged Out No longer eligible based on patient's age to complete this topic Procedures Procedure Name Priority Date/Time Associated Diagnosis Comments XR PELVIS 1-2 VIEWS Routine 06/05/2025 9 :36 AM EDT Pain POCT GLUCOSE BLOOD Routine 03/15/2025 11 :04 AM EDT POCT GLUCOSE BLOOD Routine 03/15/2025 7: 36 AM EDT BASIC METABOLIC PANEL Routine 03/15/2025 5:12 AM EDT POCT GLUCOSE BLOOD Routine 03/14/2025 8: 24 PM EDT POCT GLUCOSE BLOOD Routine 03/14/2025 4: 11 PM EDT POCT GLUCOSE BLOOD Routine 03/14/2025 11 :05 AM EDT POCT GLUCOSE BLOOD Routine 03/14/2025 7: 35 AM EDT POCT GLUCOSE BLOOD Routine 03/13/2025 8: 51 PM EDT POCT GLUCOSE BLOOD Routine 03/13/2025 3: 52 PM EDT POCT GLUCOSE BLOOD Routine 03/13/2025 11 :29 AM EDT POCT GLUCOSE BLOOD Routine 03/13/2025 7: 36 AM EDT from Last 3 Months Results * XR Pelvis 1-2 Views (06/05/2025 9:36 AM EDT) Narrative RIS PACS/VR - 06/05/2025 9:36 AM EDT This order has been auto-finalized and does not contain a result. us Yanira Simon MD IMG XR PROCEDURES Final Result RIS PACS/VR * (ABNORMAL) POCT Glucose, blood (03/15/2025 11:04 AM EDT) Only the most recent of10 resultswithin the time period is included. Glucose POCT 145(H) 70 - 100 mg/dL 03/15/2025 11:04 AM EDT [facility] Blood Capillary blood specimen / Unknown 03/15/2025 11:04 AM EDT 03/15/2025 11:06 AM EDT Tessa Adam DO LAB POINT OF CARE TEST DOCKED DEVICE UNSOLICITED RESULTS Final Result [facility] [address] [place] [address], [place] [phone] * (ABNORMAL) Basic metabolic panel (03/15/2025 5:12 AM EDT) Sodium 138 133 - 145 mmol/L LAB CHEMISTRY METHOD 03/15/2025 5:49 AM EDT [facility] Potassium 4.3 3.5 - 5.5 mmol/L LAB CHEMISTRY METHOD 03/15/2025 5:49 AM [facility] Chloride 106 96 - 110 mmol/L LAB CHEMISTRY METHOD 03/15/2025 5:49 AM [facility] CO2 27 21 - 32 mmol/L LAB CHEMISTRY METHOD 03/15/2025 5:49 AM [facility] Anion Gap 5 3 - 11 LAB CHEMISTRY METHOD 03/15/2025 5:49 AM [facility] Glucose 104(H) 70 - 100 mg/dL LAB CHEMISTRY METHOD 03/15/2025 5:49 AM [facility] BUN 34(H) 5 - 25 mg/dL LAB CHEMISTRY METHOD 03/15/2025 5:49 AM [facility] Creatinine 1.37(H) 0.50 - 1.10 mg/dL LAB CHEMISTRY METHOD 03/15/2025 5:49 AM [facility] eGFR 38(L) >=60 mL/min/1. 73m2 LAB CHEMISTRY METHOD 03/15/2025 5:49 AM [facility] Comment:Calculation based on the Chronic Kidney Disease Epidemiology Collaboration (CKD-EPI) equation refit without adjustment for race. BUN/Creatinine Ratio 24.8 LAB CHEMISTRY METHOD 03/15/2025 5:49 AM EDT [facility] Calcium 9.1 8.5 - 10.5 mg/dL LAB CHEMISTRY METHOD 03/15/2025 5:49 AM EDT [facility] Blood Venous blood specimen / Unknown Venipuncture / Unknown 03/15/2025 5:12 AM EDT 03/15/2025 5:21 AM EDT us Nelida ESTES LAB BLOOD ORDERABLES Final R esult [facility] ([facility]) [facility] [address] [place] [address], [place] [phone] from Last 3 Months Insurance MEDICARE [place]ICAID - [place] [facility] Advance Directives Documents on File Type Date Recorded Patient Special Loan Officer Expl anation Advance Directives and Living Will 03/23/2025 10:47 AM PROXY Advance Directives and Living Will 03/14/2025 9:59 AM HEALTH CARE PROXY * Full Code - Default (Latest Code Status on File) Date Activated Date Inactivated Comments 03/06/2025 2:21 PM 03/15/2025 2:44 PM This is orde r is used when code status has not been discussed with the patient, or code status is otherwise unknown/unconfirmed To update the patient's code status, place a code status order. Do not modify or discontinue any currently active code status orders. Care Teams Money Position Officer Relationship Specialty Start Date End Date Christie Mendez PA [address] [place] [phone] PCP - General 03/05/25
--- OUTSIDE RECORDS SUMMARY | 2025-06-12 11:58 | XMS_ITS | Data Portability ---
Author Organization [facility], Main Office Address [address] [facility] [address] [place] [address] Care Team Providers Care Svp Digital Ad Sales Name Role Phone HOLLAND CARVAJAL ([place]) OTHER GARRET DE GUZMAN Primary Care Provider [phone] Assessment Encounter Date Assessment Date Assessment LastModified by Organization Details LastModified Time 03/16/2025 03/16/202503/12: wbc 7.7, hgb 11.1, hct 34.9, na 138, k 4.3, bun 34, creat 1.37 glord Not available 03/16/2025 10:15:37 03/22/2025 03/22/202503/12: wbc 7.7, hgb 11.1, hct 34.9, na 138, k 4.3, bun 34, creat 1.37 glord Not available 03/22/2025 09:49:04 03/23/2025 03/23/202503/12: wbc 7.7, hgb 11.1, hct 34.9, na 138, k 4.3, bun 34, creat 1.37 llevheim Not available 03/23/2025 15:54:48 03/27/2025 03/27/202503/12: wbc 7.7, hgb 11.1, hct 34.9, na 138, k 4.3, bun 34, creat 1.37 glord Not available 03/27/2025 09:00:39 04/05/2025 04/05/2025 Labs 03/16/25-WBC-8. 5, H/H-11.3/34.8 , plts-290, BUN/Cr-34/1.2 , GFR-44, Na+140, K+5.1, glu-130, alb-3.8 03/12: wbc 7.7, hgb 11.1, hct 34.9, na 138, k 4.3, bun 34, creat 1.37 03/12: wbc 7.7, hgb 11.1, hct 34.9, na 138, k 4.3, bun 34, creat 1.37 glord Not available 04/05/2025 10:07:06 Plan of Treatment Reminders Order Date Submit Date Provider Last Modified By Organization Details Last Modified Time Details Appointments None record ed. Lab None record ed. Referral None record ed. Procedures None record ed. Surgeries None record ed. Imaging None record ed. Medication Orders None record ed. Patient TargetsNo targets recorded. Patient InstructionsNo instructions recorded. Reason for Referral None Reported. Problems Name Problem SNOMED Code Status Onset Date Resolution Date Notes Provider Name and Address Organization Details Recorded Time Closed fracture of pubic ramus Active [address], [address], [place], [address], [employer] 10:06:43 Recurrent falls 115222911 Active [address], [address], [place], [address], [employer] 5 10:06:48 Paroxysmal atrial fibrillation 880823571 Active [address], [address], [place], [address], [employer] 5 10:07:06 Essential hypertension 20392466 Active [address], [address], [place], [address], [employer] 5 10:07:15 Mixed hyperlipidemia 640437135 Active [address], [address], [place], [address], [employer] 5 10:07:23 Type 2 diabetes mellitus 62025381 Active [address], [address], [place], [address], [place] [employer] 5 10:08:04 Gastro-esophag eal reflux disease with esophagitis 375756313 Active [address], [address], [place], [address], [facility] [employer] [facility] 5 10:08:12 Chronic anemia 076074921 Active [address], [address], [place], [address], [facility] [employer] [facility] 5 10:08:19 Recurrent urinary tract infection 309706861 Active [address], [address], [place], [address], [facility] [employer] [facility] 5 10:08:27 Chronic kidney disease stage 3A 337187361 Active 2024 Dalia Matthew MD [address] [place] [address], [address], [place], [address], [facility] [facility] 5 16:07:13 Anemia of chronic disease 330149446 Active 2024 Dalia Matthew MD [address] [place] [address], [address], [place], [address], [facility] 5 16:14:08 Gastroesophage al reflux disease without esophagitis 179186026 Active 2024 Dalia Matthew MD [address] [place] [address], [address], [place], [address], [facility] [employer] [facility] 5 16:14:10 Hyperlipidemia 93613849 Active 2024 Dalia Matthew MD [address] [place] [address], [address], [place], [address], [facility] [employer] [facility] 5 16:14:16 Problem Notes None recorded. Medical Equipment None Reported. Allergies No known drug allergies Medications Name Sig Start Date Stop Date Status Note LastModified by Organization Details LastModified Time metformin 500 mg tablet TAKE 1 TABLET BY MOUTH TWICE DAILY active Not Available Not Available No t Available amiodarone 200 mg tablet TAKE 1 TABLET BY MOUTH DAILY active Not Available Not Available Not Available amlodipine 10 mg tablet TAKE 1 TABLET BY MOUTH EVERY DAY active Not Available Not Available No t Available simvastatin 20 mg tablet TAKE 1 TABLET BY MOUTH EVERY DAY active Not Available Not Available No t Available omeprazole 20 mg capsule,luis miguel yed release TAKE 1 CAPSULE BY MOUTH EVERY DAY active Not Available Not Available No t Available pravastatin 20 mg tablet TAKE 1 TABLET BY MOUTH EVERY DAY active Not Available Not Available No t Available furosemide 20 mg tablet TAKE 1 TABLET BY MOUTH EVERY MORNING active Not Available Not Available No t Available irbesartan 150 mg tablet TAKE 1 TABLET BY MOUTH EVERY DAY active Not Available Not Available No t Available cefuroxime axetil 500 mg tablet TAKE 1 TABLET BY MOUTH EVERY 12 HOURS active Not Available Not Available No t Available labetalol 100 mg tablet TAKE 1 TABLET BY MOUTH TWICE DAILY active Not Available Not Available No t Available olmesartan 20 mg tablet TAKE 1 AND 1/2 TABLETS BY MOUTH EVERY DAY active Not Available Not Available No t Available FeroSul 325 mg (65 mg iron) tablet TAKE 1 TABLET BY MOUTH TWICE DAILY active Not Available Not Available No t Available Lantus Solostar U-100 Insulin 100 unit/mL (3 mL) subcutaneous pen INJECT 12-16 UNITS UNDER THE SKIN EVERY DAY PER SLIDING SCALE DIRECTIONS active Not Available Not Available N ot Available Eliquis 5 mg tablet TAKE 1 TABLET BY MOUTH TWICE DAILY active Not Available Not Available No t Available Vitals Date Recorded Body height Body mass index (BMI) Body weight Heart rate Respiratory rate Body temperature Oxygen saturation Oxygen saturation in Arterial blood by Pulse oximetry Systolic And Diastolic Provider Name and Address Organization Details Last Updated DateTime 5 162.56 cm 24.4 kg/m2 96085.1 2 g 80 /min 17 /min 97.4 [degF] 94 % 94 % 154/62 mm[Hg] Dalia Matthew MD [address], [address], [place], [address], [employer] [facility] 12:57:46 Social History Question Answer Notes LastModified by Organization Details LastModified Time Tobacco Smoking Status Never Smoker Dalia Matthew MD [address], [facility] [address], [place], [address], [employer] [facility] 03/23/2025 15:56:16 Do You Have An Advance Directive? Yes Information not available 03/23/2025 What Is Your Code Status? DNR/DNI k[place] Information not available 03/23/2025 Where Do You Live? SingleLevelHouse With Daughter And DORIS. 3 Steps To Enter House In Front And Back. Information not available 03/23/2025 Legal Guardian? No Informati on not available 03/23/2025 Do You Have A Medical Power Of Facility Technician? Yes Not Invoked Information not available 03/23/2025 What Was The Date Of Your Most Recent Tobacco Screening? 03/23/2025 Information not available 03/23/2025 Do You Have An Out Of Hospital DNR? Yes Information not available 03/23/2025 What Is Your Relationship Status? Many Yrs Ago, No Other Relationshi ps. Information not available 03/23/2025 Has Tobacco Cessation Counseling Been Provided? No N/A As Pt Is Non-smoker Information not available 03/23/2025 Sex: Unknown Functional Status Question Answer Note LastModified by Organizat ion Details LastModified Time Do you use any illicit or recreational drugs? No Information not available 03/23/2025 Do you or have you ever used any other forms of tobacco or nicotine? No Information not available 03/23/2025 What is your level of alcohol consumption? None Information not available 03/23/2025 Mental Status None recorded. Family History Nothing Reported Notes:n/c Medical History No medical history recorded. Gynecological HistoryNo gynecological history recorded. Obstetrics History GPAL:G 0 P 0 0 0 0 Immunizations Vaccine Type Date Status Note Provider Nam e and Address Organization Details Recorded Time influenza, unspecified formulation 10/01/2023 completed Jose jeong [facility] 03/17/2025 11:51:02 influenza, unspecified formulation 08/17/2024 completed Jose jeong [facility] 03/17/2025 11:51:06 zoster, unspecified formulation 05/23/2023 completed Jose jeong [facility] 03/17/2025 11:51:17 zoster, unspecified formulation 08/07/2023 atnhony jeong [facility] 03/17/2025 11:51:22 Past Encounters Encounter ID Performer Location Encounter Start Date Encounter Closed Date Diagnosis/Indication Diagnosis SNOMED-CT Code Diagnosis ICD10 Code Diagnosis Note [id number] SHARMAINE CARVAJAL [address] [place] [address] 03/16/2025 09:47:20 03/21/2025 13:35:17 Closed fracture of pubic ramus 4856953961 S32.591D no surgical interventi onWBAT to RLEPT OT eval and treatfollo w up with ortho as indicatedm onitor pain control - apap and oxycodone q 6 hours PRN Recurrent falls 38348268 2 R29.6 PT OT eval and treat Paroxysmal atrial fibrillation 673093767 I48.0 continue eliquis 5 mg BIDamiodar one 200 mg dailymonit or rate Essential hypertension 60004600 I10 losartan 50 mg dialyamlod ipine 10 mg dailymonit or bps Mixed hyperlipidemia 267 523177 E78.2 pravastati n 20 mg qhsmonitor lipids Gastro-eso phageal reflux disease with esophagitis 585575359 K21.00 continue PPI 40 mg dailymonit or for reflux sxs Chronic anemia 142477352 D64.9 ferrous sulfate 325 mg BIDMVI dailymonit or labs Recurrent urinary tract infection 622697852 N39.0 continue cefuroxime 250 mg BID x 10 days- end date 5/6monitor for resolution of sxs Type 2 anna betes mellitus 91928385 E11.9 Z79.4 admelog SS with accuchecks metformin 500 mg BIDlantus 12 units daily [id number] SHARMAINE CAMPBELLGILMAR [address] [place] [address] 03/22/2025 09:43:26 03/24/2025 11:35:12 Closed fracture of pubic ramus 0180387470 S32.591D continue PT, see care conference notesfollo w up with ortho as indicatedm onitor pain control - apap and oxycodone q 6 hours PRNpatient denies pain at this visitusing WC at this time Paroxysmal atrial fibrillation 730786251 I48.0 rate controlled at 83 todayconti nue eliquis 5 mg BIDamiodar one 200 mg dailymonit or rate Essential hypertension 19488100 I10 controlled for patient 140/60cont inue losartan 50 mg dialyamlod ipine 10 mg dailymonit or bps Recurrent urinary tract infection 694611831 N39.0 resolved s.p abxdenies any urinary sxs today Type 2 anna betes mellitus 94197842 E11.9 Z79.4 admelog SS with accuchecks - on review with nurse mostly controlled around between 100-150met formin 500 mg BIDlantus 12 units daily [id number] MD HOLLAND Hallman [address] [place], [place] [address] 03/23/2025 12:34:08 03/24/2025 12:11:16 Closed fracture of pubic ramus 3858205062 S32.591D Mobility much improved, but pain not really getting better yet.Contin ue lidocaine patches, APAP 650 mg q 6 hrs prn and oxycodone q 6 hrs prn.Very deconditio robert.Needs PT/OT for strengthen ing, balance, gait training, safety and function.C ontinue fall precaution s.Monitor for safety.F/U with ortho as planned. Paroxysmal atrial fibrillation 491376013 I48.0 Without recent evidence of Afib, has been in NSR on recent assessment s.Continue amiodarone 200 mg qdContinue eliquis 5 mg BID for AC.Monitor HR and bleeding risk. Essential hypertension 94973735 I10 With some borderline SBPs, but DBPs all low.Contin ue losartan 50 mg qd and amlodipine 10 mg qdMonitor BP and labs Recurrent urinary tract infection 501290377 N39.0 Hx of frequent UTIs.Compl eted abx on 03/21.Monito r for recurrent sxs. Type 2 anna betes mellitus 66693847 E11.9 Z79.4 Last HgA1C was 7.5 in 12/2024.Sug ars in good control since here, not being ported into vitals spreadshee t, but visible in JAN.Contin ue metformin 500 mg BID (consider d/c or decrease), Lantus 12U qd, and SSI.Monito r fingerstic ks TID and HgA1C q 3 months. Chronic ki dney disease stage 3A 535937972 N18.31 At baseline.C ontinue to avoid nephrotoxi c meds as able.Consi berto stopping metformin. Monitor labs.Renal consult prn. Hyperlipidemia 40888300 E78.49 Continue pravastati n 20 mg qd.Monitor labs as outpt. Gastroesop hageal reflux disease without esophagitis 964394442 K21.9 No current sxs.Contin ue omeprazole 20 mg qd.Monitor for GI sxs. Anemia of chronic disease 636919283 D63.8 Stable at baseline.I svitlana was sl. low when checked in ontin ue FeSO4 325 mg qd.Monitor labs. [id number] SHARMAINE HOLLAND CARVAJAL [address] [place] [address] 03/27/2025 09:00:18 03/29/2025 10:39:26 Closed fracture of pubic ramus 3448687094 S32.591D Mobility much improved, but pain not really getting better yet.Contin ue lidocaine patchesAPA P 650 mg q 6 hrs prnd/c oxycodone q 6 hrs prn.Very deconditio robert.Contin ue with PT/OT for strengthen ing, balance, gait training, safety and function.C ontinue fall precaution s.Monitor for safety.F/U with ortho as planned. Paroxysmal atrial fibrillation 673345977 I48.0 Without recent evidence of Afib, has been in NSR on recent assessment s.Continue amiodarone 200 mg qdContinue eliquis 5 mg BID for AC.Monitor HR and bleeding risk. Essential hypertension 46700220 I10 With some borderline SBPs, but DBPs all low.Contin ue losartan 50 mg qd and amlodipine 10 mg qdMonitor BP and labs Chronic ki dney disease stage 3A 487996676 N18.31 At baseline.C ontinue to avoid nephrotoxi c meds as able.Consi berto stopping metformin. Monitor labs.Renal consult prn. Type 2 anna betes mellitus 73895068 E11.9 Z79.4 Last HgA1C was 7.5 in 12/2024.Sug ars in good control since here, not being ported into vitals spreadshee t, but visible in JAN.Contin ue metformin 500 mg BID (consider d/c or decrease), Lantus 12U qd, and SSI.Monito r fingerstic ks TID and HgA1C q 3 months. Recurrent urinary tract infection 049217400 N39.0 Hx of frequent UTIs.Compl eted abx on 03/21.Monito r for recurrent sxs. Hyperlipidemia 76560136 E78.49 Continue pravastati n 20 mg qd.Monitor labs as outpt. Gastroesop hageal reflux disease without esophagitis 360544398 K21.9 No current sxs.Contin ue omeprazole 20 mg qd.Monitor for GI sxs. Anemia of chronic disease 279340139 D63.8 Stable at baseline.I svitlana was sl. low when checked in ontin ue FeSO4 325 mg qd.Monitor labs. [id number] SHARMAINE HOLLAND CARVAJAL [address] [place], [place] [address] 04/05/2025 09:54:00 04/06/2025 14:44:14 Closed fracture of pubic ramus 0563092073 S32.591D much improvedAP AP 650 mg q 6 hrs prnVNA to continue PT outpt Paroxysmal atrial fibrillation 221193750 I48.0 Without recent evidence of Afib, has been in NSR on recent assessment s.Continue amiodarone 200 mg qdContinue eliquis 5 mg BID for AC. Essential hypertension 46754753 I10 Continue losartan 50 mg qd and amlodipine 10 mg qd Chronic ki dney disease stage 3A 953741624 N18.31 At baseline.C ontinue to avoid nephrotoxi c meds as able.Renal consult prn. Type 2 anna betes mellitus 39343056 E11.9 Z79.4 Last HgA1C was 7.5 in 12/2024.Sug ars in good control since hereContin ue metformin 500 mg BID (consider d/c or decrease), Lantus 12U qd, and SSI.Monito r fingerstic ks TID and HgA1C q 3 months. Hyperlipidemia 38144726 E78.49 Continue pravastati n 20 mg qd.Monitor labs as outpt. Gastroesop hageal reflux disease without esophagitis 966081485 K21.9 No current sxs.Contin ue omeprazole 20 mg qd. Anemia of chronic disease 952288961 D63.8 Stable at baseline.I svitlana was sl. low when checked in ontin ue FeSO4 325 mg qd. Health Concerns Section Related Observation LastModified by Organization Detai ls LastModified Time None Recorded Concern Status LastModified by Organization Details LastModified Time None Recorded Advance Directives Directive Y: Payers Insurance Date Sequence Insurance Name Policy Number Policy Harris Covered Member ID Harris Member ID Guarantor Name 04/05/2025 2 [place] [id number] Gayle Rainey [id number] Gayle Rainey 03/21/2025 1 [place] [email or web address] Gayle Rainey [id number] Gayle Rainey OBGyn Episode No OBEpisode recorded.
--- OUTSIDE RECORDS SUMMARY | 2025-06-12 11:58 | XMS_ITS | Clinical Summary ---
Author Organization [facility] Address [address] [facility] [address] [place] [id number] Phone Care Team Providers Care General Superintendent Name Role Phone Christie Mendez Primary Care Provider [phone] Allergies No known active allergies Medications simvastatin (ZOCOR) 20 MG tablet Take 20 mg by mouth daily. 3 Active NOVOFINE AUTOCOVER 30 gauge x /3 Ndle 3 Active omeprazole (PRILOSEC) 20 MG capsule 3 Active omeprazole (PRILOSEC) 40 MG capsule Take 1 capsule by mouth every morning. 3 Active metFORMIN (GLUCOPHAGE) 500 MG tablet Take 1 tablet by mouth 2 (two) times a day. 3 Active lisinopril (PRINIVIL,ZESTR IL) 30 MG tablet Take 1 tablet by mouth every morning. 3 Active labetaloL (TRANDATE) 100 MG tablet Take 1 tablet by mouth 2 (two) times a day. 3 Active LANTUS SOLOSTAR U-100 INSULIN 100 unit/mL (3 mL) InPn injection pen ADMINISTER 8 UNITS UNDER THE SKIN EVERY DAY IN THE EVENING 3 Active FEROSUL 325 mg (65 mg iron) tablet Take 1 tablet by mouth 2 (two) times a day. 3 Active amoxicillin-cla vulanate (AUGMENTIN) 500-125 mg per tablet Take 1 tablet by mouth 2 (two) times a day. 3 Active amLODIPine (NORVASC) 5 MG tablet Take 1 tablet by mouth every morning. 3 Active amLODIPine (NORVASC) 10 MG tablet Take 1 tablet by mouth every morning. Active Active Problems No known active problems Encounters Date Type Department Care Team Description 05/01/2025 Telephone [facility] [address] [place] [address] Ladan Rosa RN Reschedule 03/16/2025 8:39 AM EDT - 03/16/2025 11:59 PM EDT Hospital Encounter [facility] [address] [facility] [place] [address] Charles Reich MD Discharge Disposition: Home or Self Care from Last 3 Months Social History Tobacco Use Types Packs/Day Years Used Date Smoking Tobacco: Former Cigarettes Smokeless Tobacco: Never Tobacco Cessation:Counseling Given: Not Answered Education Answer Date Recorded Are you interested in more education? Not on petar e 08/24/2023 Are you concerned about learning? Not on file 08/24/2023 No 08/24/2023 No 08/24/2023 Digital Access Answer Date Recorded No 08/24/2023 No 08/24/2023 Reliable internet access at home? Not on file 08/24/2023 Device with a working camera? Not on file Comments Unknown Sex and Gender Information Value Date Recorded Sex Assigned at Not on file Legal Sex Female 2:14 PM EDT Gender Identity Not on file Sexual Orientation Not on file Last Filed Vital Signs Vital Sign Reading Time Taken Comments Blood Pressure 160/75 08/24/2023 2:37 PM EDT Pulse 76 08/24/2023 2:37 PM EDT Temperature 36.8 C (98.2 F) 08/24/2023 2:37 PM EDT Respiratory Rate 16 08/24/2023 2:37 PM EDT Oxygen Saturation 99% 08/24/2023 2:37 PM EDT Inhaled Oxygen Concentration - - Weight 63.5 kg (140 lb) 08/24/2023 2:37 PM EDT p er pt Height - - Body Mass Index - - Plan of Treatment Upcoming Encounters Date Type Department Care Team (Late st Contact Info) Description 07/27/2025 1:00 PM EDT Office Visit [facility] [address] [place] [address] Temo Manzanares DO [address] [place] [address] [email or web address] Health Maintenance Due Date Last Done Comments Adult Td,Tdap Booster 1940 DEPRESSION SCREENING 1952 PNEUMOCOCCAL VACCINES (50+ years) (1 of 2 - PCV) 01/20/1959 OSTEOPOROSIS SCREENING INITI AL (ONE-TIME) 01/20/2005 RSV VACCINE (1 - 1-dose 75+ series) 01/20/2015 COVID-19 VACCINE ( - 2023-2 5 season) 2024 CREATININE LEVEL 03/16/2026 03/16/2025 POTASSIUM LEVEL 03/16/2026 03/16/2025 ZOSTER VACCINES Completed 08/07/2023, 05/23/2023 HEPATITIS A VACCINES Aged Out No long er eligible based on patient's age to complete this topic HIB VACCINES Aged Out No longer eligi ble based on patient's age to complete this topic MENINGOCOCCAL VACCINES (ACWY) Aged Out No longer eligible based on patient's age to complete this topic MENINGOCOCCAL VACCINES (B) Aged Out N o longer eligible based on patient's age to complete this topic Medical Devices Not on file Procedures Procedure Name Priority Date/Time Associated Diagnosis Comments COMPREHENSIVE METABOLIC PANEL Routine 03/16/2025 7:25 AM EDT Type 2 diabetes mellitus without complication, unspecified whether fpc insulin use CBC Routine 03/16/2025 7:25 AM EDT Type 2 diabetes mellitus without complication, unspecified whether fpc insulin use from Last 3 Months Results * (ABNORMAL) Comprehensive metabolic panel (03/16/2025 7:25 AM EDT) SODIUM 140 133 - 146 mmol/L [facility] POTASSIUM 5.1 3.3 - 5.1 mmol/L [facility] CHLORIDE 104 96 - 108 mmol/L [facility] CO2 25 21 - 35 mmol/L [facility] BUN 34(H) 6 - 19 mg/dL [facility] CREATININE 1.20 0.5 - 1.5 mg/dL [facility] GLUCOSE 130(H) 70 - 99 mg/dL [facility] ALBUMIN 3.8(L) 3.9 - 4.8 g/dL [facility] TOTAL PROTEIN 6.4(L) 6.5 - 8.0 g/dL [facility] CALCIUM 9.7 8.4 - 10.3 mg/dL [facility] ALKALINE PHOSPHATASE 79 39 - 117 U/L [facility] TOTAL BILIRUBIN <0.2 0.0 - 1.2 mg/dL [facility] AST 23 0 - 37 U/L [facility] ALT 21 0 - 40 U/L [facility] GLOBULIN 2.6 1 - 4.8 g/dL [facility] EGFR 44(L) >59 mL/min/1.7 3m2 [facility] Comment:Estimated glomerular filtration rate calculated using the CKD-EPI refit equation. ANION GAP 16 10 - 20 mmol/L [facility] 03/16/2025 7:25 AM EDT 03/16/2025 8:47 AM EDT us Charles Reich MD LAB BLOOD ORDERABLES Final Resul t [facility] [address] [place] [address] * (ABNORMAL) CBC (03/16/2025 7:25 AM EDT) WBC 8.50 4.00 - 11.00 K/uL [facility] RBC 3.62(L) 4.00 - 5.20 M/uL [facility] HGB 11.3(L) 12.0 - 16.0 g/dL [facility] HCT 34.8(L) 36.0 - 46.0 % [facility] PLT 290 150 - 450 K/uL [facility] MCV 96.1 80.0 - 100.0 fL [facility] MCH 31.2(H) 27.0 - 31.0 pg [facility] MCHC 32.5 32.0 - 36.0 g/dL [facility] RDW 13.7 11.5 - 14.5 % [facility] MPV 11.0 8.4 - 12.0 fL [facility] NRBC 0.00 0.00 /100 WBCs [facility] ABSOLUTE NRBC 0.00 0.00 K/uL [facility] 03/16/2025 7:25 AM EDT 03/16/2025 8:47 AM EDT us Charles Reich MD LAB BLOOD ORDERABLES Final Resul t [facility] [address] [place] [address] from Last 3 Months Insurance MEDICARE PART A & B [employer] SUPPLEMENT [employer] NET FULL [facility] [employer] MEDICARE PART A & B Member Subscriber Plan / Payer (Ef fective 2006-Present) Name:Gayle Rainey Member ID:[id number] Relation to Subscriber:Self Name:Gayel Rainey Subscriber ID:[id number] Payer ID:[id number] Group ID:Not on file Type:Medicare Address: [facility] [employer] [facility] [address] [place] [phone] [employer] MEDEX SUPPLEMENT HEALTH SAFETY NET FULL [facility] [employer] MEDICARE PART A & B [employer] MEDEX SUPPLEMENT HEALTH SAFETY [facility] Member Subscriber Plan / Payer (Ef fective 2006-Present) Name:Gayle Rainey Member ID:[id number] Relation to Subscriber:Self Name:Gayle Rainey Subscriber ID:[id number] Payer ID:[id number] Group ID:Not on file Type:Medicare Address: [facility] [employer] [facility] [address] [phone] [employer] MEDEX SUPPLEMENT HEALTH SAFETY [facility] [place] [id number] [employer] MEDEX SUPPLEMENT HEALTH SAFETY [facility] A & B [employer] MEDEX SUPPLEMENT HEALTH SAFETY [facility] Care Teams General Superintendent Relationship Specialty Start Date End Date Christie Mendez PA [address] [place] [phone] PCP - General Physician [employer] Supervisor 08/24/23 Additional Source Comments The information contained in this document represents components of the legal health record. It is not the complete legal health record.[facility]
== END 2025-06-12 11:29 | disposition home or self-care (01) ==
LOC: HO.HCS 10:45
PROVIDERS: PCP Physician Assistant; Visit Provider Internal Medicine
DX: I48.0 Paroxysmal atrial fibrillation (principal); I34.2 Nonrheumatic mitral (valve) stenosis; I10 Essential (primary) hypertension
CPT/HCPCS: 93010; 99214; G2211

== ENCOUNTER → 2025-06-12 10:44 | Outpatient (BNVA) | payer MEDICARE, SELFPAY | PROVIDERS: PCP Physician Assistant; Visit Provider Internal Medicine | DX: I48.0 Paroxysmal atrial fibrillation (principal); I34.2 Nonrheumatic mitral (valve) stenosis; I10 Essential (primary) hypertension | CPT/HCPCS: 93005; 99212 ==

== ENCOUNTER 2025-09-10 12:01 | Emergency (ER) | payer MEDICARE, SELFPAY ==
--- NOTE | ~2025-09-10 | CT_ITS ---
CLINICAL HISTORY: L mid ax rib tender CT CHEST WITHOUT CONTRAST Comparison: CT/SR - CT CHEST ANGIOGRAPHY WITH IV CONTRAST - 06/26/24 13:06 EDT Findings: Dense aortic and coronary arterial calcifications. Dense mitral annulus calcifications. No thoracic aortic aneurysm. No significant pericardial effusion. Visualized thyroid gland unremarkable. Multiple nonenlarged mediastinal lymph nodes are nonspecific. Bilateral lower lobe opacities are increased compared to prior. Mosaic attenuation in the lungs bilaterally. No pleural effusion or pneumothorax. Small cyst in the left kidney. Subcutaneous contusions with multiple tiny subcutaneous gas lobules in the left chest wall. No underlying acute rib fracture or pneumothorax. No significant thoracic vertebral body compression deformity. Sternum intact. IMPRESSION: 1. Soft tissue injuries in the left chest wall. No underlying acute rib fracture or pneumothorax. 2. Bilateral lower lobe atelectasis and/or infiltrates. 3. Mosaic attenuation pattern which is nonspecific and can be seen with air trapping, inflammation, infection or fluid overload. This document has been electronically signed by: Lexus Noonan DO on 09/10/2025 18:12:52
--- NOTE | ~2025-09-10 | CT_ITS ---
CLINICAL HISTORY: fall anticoagulated CT HEAD WITHOUT CONTRAST Comparison: None provided Findings: Multiple 7 mm or less in size intraparenchymal hyperdensities suggesting small bleeds are identified in the periventricular left frontal lobe, tail of the right caudate nucleus, right thalamus, right cerebellum and right peripontine region. No extra-axial fluid collection, hydrocephalus or midline shift. Age appropriate generalized parenchymal atrophy. There are periventricular and subcortical white matter hypodensities which are most likely related to microangiopathic gliosis. Intracranial arteriosclerosis. 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 Nonspecific partial right mastoid opacification. No sinus fluid. Nodular mucosal thickening in the left maxillary sinus. Visualized orbits: No acute abnormalities. Right prefrontal soft tissue swelling. No underlying fracture. IMPRESSION: 1. Multiple subcentimeter intraparenchymal hyperdensities suggesting small bleeds are identified in the periventricular left frontal lobe, tail of the right caudate nucleus, right thalamus, right cerebellum and right peripontine region. 2. Right prefrontal soft tissue swelling. No underlying fracture. 3. Nonspecific partial right mastoid opacification. This document has been electronically signed by: Lexus Noonan DO on 09/10/2025 18:32:22
--- NOTE | ~2025-09-10 | CT_ITS ---
CLINICAL HISTORY: fall non focal neuro CT CERVICAL SPINE WITHOUT CONTRAST Comparison: None provided Findings: Vertebral alignment is within normal limits. Moderate disc and facet degenerative changes. Small multilevel endplate osteophytes. No acute fractures or dislocations. Bilateral cervical ribs. Please see the separate report for the CT head/brain.. No cervical fluid collection. Dense carotid arterial calcifications. No apical pneumothorax. IMPRESSION: No acute fracture in the cervical spine. This document has been electronically signed by: Lexus Noonan DO on 09/10/2025 18:00:19
--- NOTE | 2025-09-10 12:07 | ED.TRAUMA ---
HPI - Trauma General Chief Complaint: Fall Stated Complaint: FALL IN SHOWER Time Seen by Provider: 09/10/25 12:02 History of Present Illness ED Provider: Jim Paez MD HPI narrative: Mrs. Rainey is an 85-year-old female on anticoagulation with paroxysmal AFib, mitral valve stenosis, HFpEF, emphysema. She had a nonsyncopal fall losing her balance after getting out of the shower and striking the left side of her chest about mid axillary line near the 4th or 5th rib region on either the towel bar or the toilet seat. Daughter lives with her came right in the room found her awake alert help her up. The patient was splinting and only complaining of pain in the left chest wall. No obvious head strike or LOC she is anticoagulated. Also had a fall recently she thinks maybe a few weeks ago Related Data Home Medications ?Medication ?Instructions ?Recorded ?Confirmed amlodipine 10 mg tablet 10 mg PO BEDTIME 06/26/24 06/12/25 ferrous sulfate 325 mg (65 mg 325 mg PO BID 06/26/24 06/12/25 iron) tablet (FeroSul) insulin glargine 100 unit/mL (3 14 unit subcut BEDTIME 06/26/24 06/12/25 mL) subcutaneous pen (Lantus Solostar U-100 Insulin) metformin 500 mg tablet 500 mg PO BID 06/26/24 06/12/25 omeprazole 20 mg capsule,delayed 20 mg PO DAILY@0630 06/26/24 06/12/25 release olmesartan 40 mg tablet 40 mg PO DAILY 06/12/25 06/12/25 pravastatin 20 mg tablet 20 mg PO BEDTIME 06/12/25 06/12/25 Previous Rx's ?Medication ?Instructions ?Recorded amiodarone 200 mg tablet 200 mg PO DAILY #90 tabs 12/16/24 apixaban 5 mg tablet (Eliquis) 5 mg PO BID #180 tabs 07/25/25 Allergies Allergy/AdvReac Type Severity Reaction Status Date / Time No Known Allergies Allergy Verified 09/10/25 12:12 [facility] Past Medical History Medical History (Updated 09/10/25 @ 19:01 by Jim Paez MD) Congestive heart failure Hiatal hernia HTN (hypertension) Diabetes Surgical History H/O: hysterectomy Family History Family History Father Heart attack Mother Heart attack Social History Social History Alcohol intake: never Patient Tobacco Use Status: Never used Tobacco Advance Directives Date on File: 09/10/25 service: No Physical Exam Exam: Exam: Primary Survey: GCS: 15 Airway: Intact airway Breathing: Spontaneous respirations with bilateral breath sounds Circulation: Palpable bilateral carotid, brachial, femoral DP pulses with good skin color and distal perfusion. Disability: No gross paresis of the extremities or obvious focal neuro deficit. E FAST Ultrasound: NA Secondary Survey GENERAL: Well appearing. No apparent distress. Alert. HEAD: The head is atraumatic, without swelling or ecchymosis of the face or behind the ears, including the periorbital area. There is no tenderness to face, and the oral and nasal mucosa are nonbloody. Dentition is intact. The TMs are without hemotympanum. NECK ?After CT/clinical clearance; Later examination after collar removal: The patient is able to range their neck completely without midline cervical pain, numbness, tingling, or weakness. EYES: Normal to inspection. Sclera non-icteric. EOMI, Pupils grossly symmetric/reactive. ENMT: External nose normal. No facial depression, gross hemotympanum, epistaxis. Healing right zygomatic region bruising RESPIRATORY: Respiratory effort normal. Lungs clear to auscultation bilaterally. CARDIOVASCULAR: Regular rate. Normal rhythm. No murmur. No rubs. GI: Soft, non-tender, non-distended. No rebound or guarding. No masses palpable. No hepatosplenomegaly. No bruising. MSK: Chest Wall: Severe left mid axillary line chest pain from about rib 3-6 at least. No hematoma or crepitus palpated. Otherwise: Atraumatic, nontender, no crepitus, seat belt sign or ecchymosis. Back: No ecchymosis, no abrasions or other external signs of trauma, no midline spinal tenderness. Upper Extremities: Atraumatic, no swelling, deformity, focal tenderness, +FROM of all joints. Lower Extremities: Atraumatic, no swelling, deformity, focal tenderness, +FROM of all joints. SKIN: No jaundice. No abrasions, lacerations, or ecchymosis. NEUROLOGICAL: Alert. Comprehensive Neuro exam: Face symmetric, tongue midline, strong symmetric eye closure intact strong face deviation and shoulder shrug. Sensation intact to light touch throughout 5 out of 5 strength in bilateral upper extremities, 5 and 5 strength in lower extremities bilaterally? PSYCHIATRIC: Alert. Appearance appropriate for situation. Attitude cooperative. Vital Signs: Vital Signs: Last Vital Signs Temp 98.6 F 09/10/25 20:10 Pulse 74 09/10/25 20:10 Resp 18 09/10/25 20:10 BP 164/68 H 09/10/25 20:10 Pulse Ox 92 09/10/25 20:10 O2 Del Method Room Air 09/10/25 20:10 BMI result Body Mass Index 28.5 Medications Administered Discontinued Medications Generic Name Dose Route Start Last Admin Trade Name Freq PRN Reason Stop Dose Admin Acetaminophen 975 mg 09/10/25 13:41 09/10/25 15:08 Acetaminophen 325 Mg Tablet PO 09/10/25 13:42 975 mg ONCE ONE Administration Acetaminophen 1,000 mg in 100 mls @ 400 mls/hr 09/10/25 14:10 09/10/25 18:48 Ofirmev IV 09/10/25 14:24 Infused ONCE ONE Infusion Prothrombin Complex Concent ( 80 mls @ 480 mls/hr 09/10/25 18:54 09/10/25 19:24 Human) 2,000 unit/ IV IV 09/10/25 19:03 480 mls/hr Miscellaneous Supplies .Q10M PRESLEY Administration Morphine Sulfate 4 mg 09/10/25 14:09 09/10/25 15:08 Morphine Sulfate 4 Mg/Ml Cartridge IVPUSH 09/10/25 14:10 4 mg ONCE ONE Administration Protocol Morphine Sulfate 4 mg 09/10/25 17:14 09/10/25 18:41 Morphine Sulfate 4 Mg/Ml Cartridge IVPUSH 09/10/25 17:15 4 mg ONCE ONE Administration Protocol Morphine Sulfate 4 mg 09/10/25 19:46 09/10/25 19:50 Morphine Sulfate 4 Mg/Ml Cartridge IVPUSH 09/10/25 19:47 4 mg ONCE ONE Administration Protocol Procedures Procedure Narrative Procedure Narrative: Nerve Block Procedure: Indication: Anesthesia/Analgesia for the affected area. Performed by: Jim Paez MD Approximate Time: A serratus anterior right-sided nerve block was performed. After explanation of the risks, benefits, and alternatives verbal consent was obtained A neurologic exam was conducted including motor and/or sensory testing of the chest wall sensation, There were no deficits. Chest wall compartments were soft The area of injection was prepped with chlorhexidine. A [20 gauge, 1.5 in] in length needle was used. Ultrasound guidance with real-time visualization of the needle tip was utilized throughout the procedure. In-plane approach was used to visualize needle tip. Images were saved. Approximately [30ml of, 0.25% bupivacaine] was injected above the serratus plane. Local anesthetic gradually injected ?in small aliquots of 3-5ml following negative aspiration. There was no complication ?during the procedure. There were no signs of local anesthetic toxicity. There were no other complications. Patient tolerated the procedure. ??Following the procedure, the blocked extremity was protected or positioned to prevent injury. CPT: ?(FRED IRWIN/DOCUMENT US; US GUIDANCE IS BUNDLED) Thoracic Plane (Serratus/Erector): 17755 Medical Decision Making Medical Decision Making MDM Narrative: Medical Decision Makin-year-old female with nonsyncopal fall left chest wall trauma no overt head strike she also has fallen recently. She is on anticoagulation. No rib fractures. Serratus anterior plane block with some relief. Morphine x2 mostly for chest wall pain and splinting. No hypoxia. No pneumothorax or other truncal injuries identified. Abdomen is nontender extremities do not appear injured on examination. CT head: ICH small subcentimeter hemorrhages as seen below Patient remains awake alert oriented, GCS 15 no deficits 6:57 PM 09/10/2025 (Dr. Jim Paez): At this time case was discussed with Dr. Negro roche be trauma attending at [facility] who recommends PCC reversal of apixaban patient will come over as trauma consultation. Patient remains awake alert oriented GCS 15 I have informed the daughter and the patient of this need for transfer and they agree. Preliminary Favored Differential Diagnosis: Rib fractures, pneumothorax, intracranial trauma/contusion bleed, neck injury among additional considered etiologies Testing Interpreted Independently: ?See below for details Radiology or Lab testing Results Reviewed: ct:IMPRESSION: 1. Multiple subcentimeter intraparenchymal hyperdensities suggesting small bleeds are identified in the periventricular left frontal lobe, tail of the right caudate nucleus, right thalamus, right cerebellum and right peripontine region. 2. Right prefrontal soft tissue swelling. No underlying fracture. 3. Nonspecific partial right mastoid opacification. Consults: [facility] trauma transfer Independent Historians/External Chart Reviews: ?Spoke extensively with daughter at bedside for history including regarding a fall last where she was evaluated at [facility] had head scans that were normal at that time Social Determinants of Health Impacting MDM/Planning: ?See below for details Consult Healthcare Provider Management of the patient was discussed with: Prenatal Teacher ([facility] trauma surgeon) Lab Data MDM Lab Attestation statement: I reviewed the patient's lab results. 09/10/25 15:04 09/10/25 15:04 Labs: Lab Results 09/10/25 Range/Units 15:04 WBC 10.8 (4.8-10.8) X10*3/uL RBC 4.03 L (4.20-5.50) X10*6/uL Hgb 12.6 (12.0-16.0) g/dl Hct 38.7 (37.0-47.0) % MCV 96.0 (80.0-98.0) fL MCH 31.3 (27.0-33.0) pg MCHC 32.6 (31.0-35.0) g/dl RDW 13.7 (11.0-16.0) % Plt Count 277 (160-400) X10*3/uL MPV 11.0 (9.4-12.3) fL Immature Gran % (Auto) 1.2 H (0.0-0.4) % Neut % (Auto) 84.7 H (45-73) % Lymph % (Auto) 6.9 L (20-40) % Harney % (Auto) 6.6 (2-11) % Eos % (Auto) 0.2 (0-4) % Baso % (Auto) 0.4 (0-2) % Lymph # (Auto) 0.8 L (1.2-4.9) X10*3/uL Harney # (Auto) 0.7 (0.1-1.2) X10*3/uL Eos # (Auto) 0.0 (0.0-0.4) X10*3/uL Baso # (Auto) 0.0 (0.0-0.2) X10*3/uL Abs Immat Gran (auto) 0.13 H (0.00-0.03) X10*3/uL Absolute Neuts (auto) 9.2 H (2.0-8.3) x10*3/uL Absolute Nucleated RBC 0.000 (0.0-0.012) X10*3/uL Nucleated RBC % (auto) 0.0 (0.0-0.2) /100WBC PT 14.3 H (10.9-12.4) SEC INR 1.2 H (0.9-1.1) APTT 33.8 (26.7-34.1) SEC Sodium 142 (135-145) mmol/L Potassium 5.0 D (3.3-5.1) mmol/L Chloride 105 (96-108) mmol/L Carbon Dioxide 26 (22-29) mmol/L Anion Gap 16 (12-20) BUN 33 H (9-16) mg/dL Creatinine 1.14 (0.5-1.4) mg/dL Estim Creat Clear Calc 30.6 Estimated GFR 45 Random Glucose 123 H (60-115) mg/dL Calcium 9.7 (8.4-10.2) mg/dL Total Bilirubin 0.2 (0.0-1.0) mg/dL AST 25 (5-31) U/L ALT 15 (0-31) U/L Alkaline Phosphatase 72 (39-117) U/L Total Protein 7.3 (6.5-8.0) g/dL Albumin 4.2 (3.5-5.0) g/dL Independent Interpretation I performed an independent interpretation of an: CT Scan Radiology Impression Discussion of test interpretation with radiology: I have reviewed the radiologist's reading. Critical Care Time Critical Care Time Critical Care Time: Yes Total Critical Care Time: 30 Attestation: ED Critical Care: Acute traumatic intracranial hemorrhages requiring transfer multisystem trauma injuries Authorized and Performed by: Jim Paez MD Total critical care time: Approximately 30 min Due to a high probability of clinically significant, life threatening deterioration, the patient required my highest level of preparedness to intervene emergently and I personally spent this critical care time directly and personally managing the patient. This critical care time included obtaining a history; examining the patient; pulse oximetry; ordering and review of studies; arranging urgent treatment with development of a management plan; evaluation of patient's response to treatment; frequent reassessment; and, discussions with other providers. This critical care time was performed to assess and manage the high probability of imminent, life-threatening deterioration that could result in multi-organ failure. It was exclusive of separately billable procedures and treating other patients and teaching time. Discharge Plan Discharge Clinical Impression: Intracranial hemorrhage, Contusion of rib Patient Disposition: [facility] Transfer Details: Accepted ED to ED by Dr. Rivera, trauma transfer for trauma consultation in the ED. Multiple small subcentimeter hemorrhages primarily on the right side. Patient had apixaban reversal with PCC in our ED as well as multiple morphine doses after inadequate analgesia with serratus anterior plane nerve block left side with bupivacaine Prescriptions: No Action amiodarone 200 mg tablet 200 mg PO DAILY Qty: 90 3RF Eliquis 5 mg tablet 5 mg PO BID Qty: 180 3RF metformin 500 mg tablet 500 mg PO BID amlodipine 10 mg tablet 10 mg PO BEDTIME ferrous sulfate [FeroSul] 325 mg (65 mg iron) tablet 325 mg PO BID omeprazole 20 mg capsule,delayed release(DR/EC) 20 mg PO DAILY@0630 insulin glargine [Lantus Solostar U-100 Insulin] 100 unit/mL (3 mL) insulin pen 14 unit subcut BEDTIME olmesartan 40 mg tablet 40 mg PO DAILY pravastatin 20 mg tablet 20 mg PO BEDTIME Interventions: Acute Care Transfer Worksheet (ED) Last Done: 09/10/25 20:10 Discharge Date/Time: 09/10/25 20:11 Print Language: Slovak
[2025-09-10 12:12] VITALS: BP 188/68; PULSE 83; RESP 18; TEMP 36.4; O2SAT 94; BMI 28.5
[2025-09-10 12:21] VITALS: BP 200/100; PULSE 84; O2SAT 95
--- OUTSIDE RECORDS SUMMARY | 2025-09-10 12:38 | XMS_ITS | Data Portability ---
Author Organization [facility], Main Office Address [address] [facility] [address] [facility] [address] [place] [address] Care Team Providers Care White Washer Piler Name Role Phone HOLLAND CARVAJAL ([place]) OTHER GARRET DE GUZMAN Primary Care Provider Assessment Encounter Date Assessment Date Assessment LastModified [...] Closed fracture of pubic ramus Active [address], [address], [place], [address], [facility] 10:06:43 Recurrent falls 265073786 Active [address], [address], [place], [address], Kadmon 5 10:06:48 Paroxysmal atrial fibrillation 048894586 Active [address], [address], [place], [address], [facility] 5 10:07:06 Essential hypertension 55064608 Active [address], [address], [place], [address], [facility] 5 10:07:15 Mixed hyperlipidemia 111594990 Active [address], [address], [place], [address], [facility] 5 10:07:23 Type 2 diabetes mellitus 98617924 Active [address], [address], [place], [address], [place] [facility] 5 10:08:04 Gastro-esophag eal reflux disease with esophagitis 269911310 Active [address], [address], [place], [address], [facility] [employer] [facility] 5 10:08:12 Chronic anemia 568205540 Active [address], [address], [place], [address], [facility] [employer] [facility] 5 10:08:19 Recurrent urinary tract infection 505221731 Active [address], [address], [place], [address], [facility] [employer] [facility] 5 10:08:27 Chronic kidney disease stage 3A 837764153 Active 2024 Dalia Matthew MD [address] [place] [address], [address], [place], [address], [facility] [email or web address] [facility] 5 16:07:13 Anemia of chronic disease 560279243 Active 2024 Dalia Matthew MD [address] [place] [address], [address], [place], [address], [facility] [employer] [facility] 5 16:14:08 Gastroesophage al reflux disease without esophagitis 031666226 Active 2024 Dalia Matthew MD [address] [place] [address], [address], [place], [address], [facility] [employer] [facility] 5 16:14:10 Hyperlipidemia 15486789 Active 2024 Dalia Matthew MD [address] [place] [address], [address], [place], [address], [facility] [employer] [facility] 5 16:14:16 Problem Notes None recorded. [...] Updated DateTime 5 162.56 cm 24.4 kg/m2 45586.1 2 g 80 /min 17 /min 97.4 [degF] 94 % 94 % 154/62 mm[Hg] Dalia Matthew MD [address] [facility], [address], [place], [address], [facility] 12:57:46 Social History Question Answer Notes LastModified by Organization Details LastModified Time Tobacco Smoking Status Never Smoker Dalia Matthew MD [address] [facility], [facility] [address], [place], [address], [facility] 03/23/2025 15:56:16 Do You Have An Advance Directive? Yes Information not available 03/23/2025 What Is Your Code Status? DNR/DNI [place] Information not available 03/23/2025 Where Do You Live? SingleLevelHouse With Daughter And DORIS. 3 Steps To Enter House In Front And Back. Information not available 03/23/2025 Legal Guardian? No Informati on not available 03/23/2025 Do You Have A Medical Power Of Welder Operator? Yes Not Invoked Information not available 03/23/2025 [...] influenza, unspecified formulation 10/01/2023 completed Jose jeong [facility] 03/17/2025 11:51:02 influenza, unspecified formulation 08/17/2024 completed Jose jeong [facility] 03/17/2025 11:51:06 zoster, unspecified formulation 05/23/2023 completed Jose jeong [facility] 03/17/2025 11:51:17 zoster, unspecified formulation 08/07/2023 anthony jeong [facility] 03/17/2025 11:51:22 Past Encounters Encounter ID Performer Location Encounter Start Date Encounter Closed Date Diagnosis/Indication Diagnosis SNOMED-CT Code Diagnosis ICD10 Code Diagnosis IMO Codes Diagnosis Note [id number] SHARMAINE CARVAJAL [address] [place] [address] 03/16/2025 09:47:20 03/21/2025 13:35:17 Closed fracture of pubic ramus 2400300575 S32.591D 64793959 no surgical interventi onWBAT to RLEPT OT eval and treatfollo w up with ortho as indicatedm onitor pain control - apap and oxycodone q 6 hours PRN Recurrent falls 47639384 2 R29.6 16234 PT OT eval and treat Paroxysmal atrial fibrillation 593458994 I48.0 92676 continue eliquis 5 mg BIDamiodar one 200 mg dailymonit or rate Essential hypertension 73829700 I10 69580 losartan 50 mg dialyamlod ipine 10 mg dailymonit or bps Mixed hyperlipidemia 267 523342 E78.2 29109 pravastati n 20 mg qhsmonitor lipids Gastro-eso phageal reflux disease with esophagitis 795015164 K21.00 7457651473 continue PPI 40 mg dailymonit or for reflux sxs Chronic anemia 284630316 D64.9 254466 ferrous sulfate 325 mg BIDMVI dailymonit or labs Recurrent urinary tract infection 960348331 N39.0 977259 continue cefuroxime 250 mg BID x 10 days- end date 5/6monitor for resolution of sxs Type 2 anna betes mellitus 76684763 E11.9 Z79.4 23128226 admelog SS with accuchecks metformin 500 mg BIDlantus 12 units daily [id number] SHARMAINE CAMPBELLGILMAR [address] [place] [address] 03/22/2025 09:43:26 03/24/2025 11:35:12 Closed fracture of pubic ramus 3194284196 S32.591D 34211184 continue PT, see care conference notesfollo w up with ortho as indicatedm onitor pain control - apap and oxycodone q 6 hours PRNpatient denies pain at this visitusing WC at this time Paroxysmal atrial fibrillation 188153710 I48.0 99798 rate controlled at 83 todayconti nue eliquis 5 mg BIDamiodar one 200 mg dailymonit or rate Essential hypertension 90532600 I10 87983 controlled for patient 140/60cont inue losartan 50 mg dialyamlod ipine 10 mg dailymonit or bps Recurrent urinary tract infection N39.0 122245 resolved s.p abxdenies any urinary sxs today Type 2 anna betes mellitus 38680976 E11.9 Z79.4 59582281 admelog SS with accuchecks - on review with nurse mostly controlled around between 100-150met formin 500 mg BIDlantus 12 units daily [id number] MD HOLLAND Hallman [address] [place], [place] [address] 03/23/2025 12:34:08 03/24/2025 12:11:16 Closed fracture of pubic ramus 5192084433 S32.591D 35832729 Mobility much improved, but pain not really getting better yet.Contin ue lidocaine patches, APAP 650 mg q 6 hrs prn and oxycodone q 6 hrs prn.Very deconditio robert.Needs PT/OT for strengthen ing, balance, gait training, safety and function.C ontinue fall precaution s.Monitor for safety.F/U with ortho as planned. Paroxysmal atrial fibrillation 370805781 I48.0 94170 Without recent evidence of Afib, has been in NSR on recent assessment s.Continue amiodarone 200 mg qdContinue eliquis 5 mg BID for AC.Monitor HR and bleeding risk. Essential hypertension 35584599 I10 20533 With some borderline SBPs, but DBPs all low.Contin ue losartan 50 mg qd and amlodipine 10 mg qdMonitor BP and labs Recurrent urinary tract infection N39.0 318554 Hx of frequent UTIs.Compl eted abx on 03/21.Monito r for recurrent sxs. Type 2 anna betes mellitus 82988532 E11.9 Z79.4 79699389 Last HgA1C was 7.5 in 12/2024.Sug ars in good control since here, not being ported into vitals spreadshee t, but visible in JAN.Contin ue metformin 500 mg BID (consider d/c or decrease), Lantus 12U qd, and SSI.Monito r fingerstic ks TID and HgA1C q 3 months. Chronic ki dney disease stage 3A 371755084 N18.31 3467187464 At baseline.C ontinue to avoid nephrotoxi c meds as able.Consi berto stopping metformin. Monitor labs.Renal consult prn. Hyperlipidemia 77929566 E78.49 6961470 Continue pravastati n 20 mg qd.Monitor labs as outpt. Gastroesop hageal reflux disease without esophagitis 063000020 K21.9 772474 No current sxs.Contin ue omeprazole 20 mg qd.Monitor for GI sxs. Anemia of chronic disease 107148493 D63.8 3162084 Stable at baseline.I svitlana was sl. low when checked in ontin ue FeSO4 325 mg qd.Monitor labs. [id number] SHARMAINE CARVAJAL [address] [place] [address] 03/27/2025 09:00:18 03/29/2025 10:39:26 Closed fracture of pubic ramus 2654884519 S32.591D 25772459 Mobility much improved, but pain not really getting better yet.Contin ue lidocaine patchesAPA P 650 mg q 6 hrs prnd/c oxycodone q 6 hrs prn.Very deconditio robert.Contin ue with PT/OT for strengthen ing, balance, gait training, safety and function.C ontinue fall precaution s.Monitor for safety.F/U with ortho as planned. Paroxysmal atrial fibrillation 271196381 I48.0 69320 Without recent evidence of Afib, has been in NSR on recent assessment s.Continue amiodarone 200 mg qdContinue eliquis 5 mg BID for AC.Monitor HR and bleeding risk. Essential hypertension 31067100 I10 82772 With some borderline SBPs, but DBPs all low.Contin ue losartan 50 mg qd and amlodipine 10 mg qdMonitor BP and labs Chronic dney disease stage 3A 670055937 N18.31 7285740834 At baseline.C ontinue to avoid nephrotoxi c meds as able.Consi berto stopping metformin. Monitor labs.Renal consult prn. Type 2 anna betes mellitus 45982150 E11.9 Z79.4 13330162 Last HgA1C was 7.5 in 12/2024.Sug ars in good control since here, not being ported into vitals spreadshee t, but visible in JAN.Contin ue metformin 500 mg BID (consider d/c or decrease), Lantus 12U qd, and SSI.Monito r fingerstic ks TID and HgA1C q 3 months. Recurrent urinary tract infection 174579968 N39.0 202050 Hx of frequent UTIs.Compl eted abx on 03/21.Monito r for recurrent sxs. Hyperlipidemia 16253872 E78.49 5571381 Continue pravastati n 20 mg qd.Monitor labs as outpt. Gastroesop hageal reflux disease without esophagitis 722572182 K21.9 041969 No current sxs.Contin ue omeprazole 20 mg qd.Monitor for GI sxs. Anemia of chronic disease 099432182 D63.8 3577464 Stable at baseline.I svitlana was sl. low when checked in ontin ue FeSO4 325 mg qd.Monitor labs. [id number] SHARMAINE LORD HOLLAND CARVAJAL [address] [place] [address] 04/05/2025 09:54:00 04/06/2025 14:44:14 Closed fracture of pubic ramus 0040121261 S32.591D 35002702 much improvedAP AP 650 mg q 6 hrs prnVNA to continue PT outpt Paroxysmal atrial fibrillation 781415129 I48.0 31736 Without recent evidence of Afib, has been in NSR on recent assessment s.Continue amiodarone 200 mg qdContinue eliquis 5 mg BID for AC. Essential hypertension 62732711 I10 14487 Continue losartan 50 mg qd and amlodipine 10 mg qd Chronic ki dney disease stage 3A 663580428 N18.31 6690190870 At baseline.C ontinue to avoid nephrotoxi c meds as able.Renal consult prn. Type 2 anna betes mellitus 38260225 E11.9 Z79.4 31458584 Last HgA1C was 7.5 in 12/2024.Sug ars in good control since hereContin ue metformin 500 mg BID (consider d/c or decrease), Lantus 12U qd, and SSI.Monito r fingerstic ks TID and HgA1C q 3 months. Hyperlipidemia 05480875 E78.49 7179829 Continue pravastati n 20 mg qd.Monitor labs as outpt. Gastroesop hageal reflux disease without esophagitis 836785918 K21.9 869411 No current sxs.Contin ue omeprazole 20 mg qd. Anemia of chronic disease 347305799 D63.8 1287698 Stable at baseline.I svitlana was sl. low [...] Name 04/05/2025 2 [place] [id number] Gayle Rainey [id number] Gayle Rainey 03/21/2025 1 [place] [employer] Gayle Rainey [id number] Gayle Rainey Notes Date Note Type Note Provider Name and Address Organization Details Recorded Time 03/16/2025 text/html This is an 85 year old female seen today for initial intake visit. Patient with PMH significant for afib, DM, htn, hld. She presented to the ED after a fall when she tripped on her shoe. She had severe right hip pain and was unable to bear weight. CT of pelvis showed a 4 mm hyper-attenuating focus in the right cerebellar hemisphere likely calcification, possible occult vascular formation, extensive deep white matter changes due to microvascular anemia and chronic infarcts. Neuro was consulted and did not feel further follow up was warranted. Ortho was consulted and recommended WBAT with a walker and pain control. Once stable she was discharged to complete STR. SHARMAINE [address], [address], [place], [address], [facility] [email or web address] 03/16/2025 10:28:26 03/22/2025 text/html This is an 85 year old female seen today for acute rounding visit. Patient with PMH significant for afib, DM, htn, hld. Patient here for rehab after a fall at home.Stay has been uneventful, she is doing well with rehab. Care conference note: Gayle is doing great and she is feeling very confident about how she's doing and has a very good sense of humor. She is walking 75' with 2 ww : min; sit to stand: cg; bed mobility: max; Upper: min; lower; max; toilet hygeine; modeating; sup.Gayle resides with her daughter, Lisha and DORIS. Brandie said Gayle is usually home alone during the days. MOW come do check in and calls Brandie around 11am to let her know how mom is doing. Someone from the family is home by 4pm daily.Gayle does have low vision There are three stairs to get into both entrances (front and back) and on garage there is a grab bar on left side. Question around whether if she can't do stairs could family put in a portable ramp. Lisha said she would also talk to her about the possibility. After the meeting, rehab asked re: doing stairs and she was in complete agreement and went to the gym with the rehab person.Discussed potential d/c date of 04/06. Daughter also said mom has an appointment at [address] [place] [address] in [place] for 04-03-25 and daughter will make transport arrangements for this visit. She is moving about the unit in her WC, tells me she is doing great and everyone has been wonderful to her. No new concerns from patient or staff. SHARMAINE JEAN BAPTISTE [address] [place] [address], [address], [place], [address], [facility] 03/22/2025 09:52:05 03/23/2025 text/html This is an 85 yo woman who is here for rehab after an ED visit and then acute rehab at [place] for a right superior pubic ramus fx after a mechanical fall. She presented to the [facility] ED on 03/05 after tripping over her crocs and falling to her right side. She had immediate right hip pain. She did hit her head, but had no LOC.She had a right periorbital hematoma. CT pelvis showed Comminuted nondisplaced right superior pubic ramus fracture. Fracture line extends to the pubic symphysis without diastasis. Adjacent pelvic and right inguinal hematomas. These demonstrate primarily linear configuration. Imaging of head, neck and chest were non-acute, but head CT did show: 1. 4 mm hyperattenuating focus in the right cerebellar hemisphere, most likely representing calcification, possibly related to an occult vascular malformation. A small acute hemorrhage cannot be completely excluded. A follow-up CT is recommended in 6 to 8 hours to reassess this.2. Right frontal scalp contusion/hematoma.3. Extensive, nonspecific deep white matter changes compatible with chronic microvascular ischemia.4. Chronic infarcts. Labs were non-acute.Repeat head CT in 8 hrs showed no change. She couldn't bear wt on RLE and therefore had trouble ambulating.Per ortho WBAT and pain management, non-srurgical.She was transferred to [place] for acute rehab.She continued to be unable to ambulate due to pain and needed mod assist for transfers and bed mobility, so decision for subacute rehab and transferred here on 03/15. While at [facility] she was found to have a UTI with núñez-sensitive e. coli and she was started on cefuroxime 250 mg BID for 10 days (03/10-03/20). Since here she has been working with rehab and doing well.Per rehab eval she is walking 75' with 2 ww : min; sit to stand: cg; bed mobility: max; Upper: min; lower; max; toilet hygeine; mod; eating; sup. She tells me that today she was able to lift her leg to climb stairs for the first time.Pain is being controlled with oxy, APAP and lidocaine patches.She tells me she was trying to not use oxy, but pain isn't really getting any better yet and realizes she needs to use it so pain doesn't get out of control. 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 Dalia Matthew MD [address] [facility], [address], [place], [address], [facility] [email or web address] 03/23/2025 16:14:39 03/27/2025 text/html This is an 85 yo woman who is here for rehab after an ED visit and then acute rehab at [place] for a right superior pubic ramus fx after a mechanical fall. Patient is pleasant and comfortable. Reports pain controlled with acetaminophen 650 mg. Patient reports no longer wanting oxycodone. SHARMAINE JEAN BAPTISTE [address] [place] [address], [address], [place], [address], [facility] 03/27/2025 09:44:04 04/05/2025 text/html This is an 85 yo woman who is here for rehab after an ED visit and then acute rehab at [place] for a right superior pubic ramus fx after a mechanical fall. Patients stay has been uneventful and she is doing well. She will DC home tomorrow with meds and services in place including VNA due to home bound status. No other concerns at this visit, ok to DC. SHARMAINE [place] [facility], [address], [place], [address], [facility] 04/05/2025 10:08:11 OBGyn Episode No OBEpisode recorded.
--- OUTSIDE RECORDS SUMMARY | 2025-09-10 12:38 | XMS_ITS | Clinical Summary ---
Author Organization [facility] Address [address] [place] [address] Phone Care Team Providers Care Finance Executive Name Role Phone Christie Mendez Primary Care Provider [phone] Allergies No known active allergies Medications omeprazole [...] Noted Date Diagnosed Date Chronic atrial fibrillation [place] [place], [facility]/ [facility] V28) 03/07/2025 Pubic ramus fracture ([facility] [place]24, [facility] V28) 03/06/2025 Medical History Medical History Date Comments Diabetes mellitus ([facility] [place], [facility] V28) Hypertension Hyperlipidemia Social History Tobacco Use [...] Safety Answer Date Record ed Physical Abuse Unrecognized value 03/06/2025 Verbal Abuse Unrecognized value 03/06/2025 Comments Unknown Sex and Gender Information [...] Patients (1 - 1-dose 75+ series) 01/20/2015 Cholesterol Screening (Lipid Panel) 03/05/2025 Medicare Annual Wellness Visit 03/05/2025 Osteoporosis Screening (Bone Density Screening) 03/05/2025 Diabetes: Annual Urine Albumin-Creatinine Ratio (uACR) 03/10/2025 Diabetes: Blood Sugar Control Test (HGBA1C) 03/10/2025 COVID-19 Vaccine ( - season) 2025 Influenza Vaccine (#1) 2025 08/17/2024, 2022 Social [...] Procedure Name Priority Date/Time Associated Diagnosis Comments BASIC METABOLIC PANEL Routine 03/15/2025 5:12 AM EDT from Last 3 Months or Most Recently Relevant to Health Maintenance Results * (ABNORMAL) Basic metabolic panel (03/15/2025 5:12 AM EDT) Sodium 138 133 - 145 mmol/L LAB CHEMISTRY METHOD 03/15/2025 5:49 AM [facility] Potassium 4.3 3.5 - 5.5 mmol/L LAB CHEMISTRY METHOD 03/15/2025 5:49 AM [facility] Chloride 106 96 - 110 mmol/L LAB CHEMISTRY METHOD 03/15/2025 5:49 AM [facility] CO2 27 21 - 32 mmol/L LAB CHEMISTRY METHOD 03/15/2025 5:49 AM [facility] Anion Gap 5 3 - 11 LAB CHEMISTRY METHOD 03/15/2025 5:49 AM [facility] Glucose 104(H) 70 - 100 mg/dL LAB CHEMISTRY METHOD 03/15/2025 5:49 AM [facility] BUN 34(H) 5 - 25 mg/dL LAB CHEMISTRY METHOD 03/15/2025 5:49 AM [facility] Creatinine 1.37(H) 0.50 - 1.10 mg/dL LAB CHEMISTRY METHOD 03/15/2025 5:49 AM EDT [facility] eGFR 38(L) >=60 mL/min/1. 73m2 LAB CHEMISTRY METHOD 03/15/2025 5:49 AM EDT [facility] Comment:Calculation based on the Chronic Kidney Disease Epidemiology Collaboration (CKD-EPI) equation refit without adjustment for race. BUN/Creatinine Ratio 24.8 LAB CHEMISTRY METHOD 03/15/2025 5:49 AM EDT [facility] Calcium 9.1 8.5 - 10.5 mg/dL LAB CHEMISTRY METHOD 03/15/2025 5:49 AM EDT [facility] Blood Venous blood specimen / Unknown Venipuncture / Unknown 03/15/2025 5:12 AM EDT 03/15/2025 5:21 AM EDT us Nelida ESTES LAB BLOOD ORDERABLES Final R esult [facility] [address] [place] [address], from Last 3 Months or Most Recently Relevant to Health Maintenance Insurance MEDICARE MEDICAID - [place] [facility] Advance Directives Documents on File Type Date Recorded Patient Ticket Marker Expl anation Advance Directives and Living Will [...] currently active code status orders. Care Teams Finance Executive Relationship Specialty Start Date End Date Christie Mendez PA [address] [place] [phone] PCP - General 03/05/25
--- OUTSIDE RECORDS SUMMARY | 2025-09-10 12:38 | XMS_ITS | Encounter Summary ---
Author Organization [facility] Address [address] [facility] [address] [place] [address] Phone Care Team Providers Care Testing Shaking Shipping Name Role Phone Christie Mendez Primary Care Provider [phone] Encounter Details Date Type Department Care Team (Late st Contact Info) Description 08/29/2025 Transcribe Orders [facility] [address] [place] [id number] Christie Mendez PA [address] [place] [phone] Social History Tobacco Use Types Packs/Day Years Used Date Smoking Tobacco: Former Cigarettes Smokeless Tobacco: Never Education Answer Date Recorded Are you interested [...] on file Sexual Orientation Not on file documented as of this encounter Plan of Treatment Upcoming Encounters Date Type Department Care Team (Late st Contact Info) Description 12/18/2025 3:00 PM EST Office Visit [facility] [address] [place] [address] Temo Manzanares, [address] [place] [address] 01/22/2026 11:45 AM EDT Appointment [facility], Bone Density - [facility] [address] [place] [address] Christie Mendez PA [address] [place] [phone] documented as of this encounter Visit Diagnoses Not on filedocumented in this encounter Care Teams Testing Shaking Shipping Relationship Specialty Start Date End Date Christie Mendez PA [address] [place] [phone] PCP - General Physician Budget Assistant 08/24/23 documented as of this encounter Additional Source Comments The information contained in this document represents components of the legal health record. It is not the complete legal health record.[facility]
--- OUTSIDE RECORDS SUMMARY | 2025-09-10 12:38 | XMS_ITS | Encounter Summary ---
Author Organization [facility] Address [address] [facility] [address] [place] [phone] Phone Care Team Providers Care Data Integration Architect Name Role Phone Christie Mendez Primary Care Provider [phone] [phone] Encounter Details Date Type Department Care Team (Late st Contact Info) Description 08/23/2025 Transcribe Orders Virtual Department [address] [place], [place] [phone] Christie Mendez PA [address] [place] [phone] Asymptomatic menopausal state (Primary Dx) Social History Tobacco Use Types Packs/Day Years [...] Encounters Date Type Department Care Team (Late Contact Info) Description 12/18/2025 3:00 PM EST Office Visit [facility] Ger[facility] [address] [place] [address] Temo Manzanares, [address] [place] [address] 01/22/2026 11:45 AM EDT Appointment [facility], Bone Density - [facility] [address] [place] [address] Christie Mendez PA [address] [place] [phone] Scheduled Orders Name Type Priority Associated Diagnoses Orde r Schedule DXA Screening Imaging Routine Asymptomatic menopausal state Expected: 09/22/2025, Expires: 08/23/2026 documented as of this encounter Visit Diagnoses Diagnosis Asymptomatic menopausal state- Primary documented in this encounter Care Teams Data Integration Architect Relationship Specialty Start Date End Date Christie Mendez PA [address] [place] [phone] PCP - General Physician Senior Telecommunications Engineer 08/24/23 documented as of this encounter Additional Source Comments The information contained in this document represents components of the legal health record. It is not the complete legal health record.[facility]
--- OUTSIDE RECORDS SUMMARY | 2025-09-10 12:39 | XMS_ITS | Clinical Summary ---
Author Organization [facility] Address [address] [facility] [address] [place] [address] Phone Care Team Providers Care Mountain Services Manager Name Role Phone Christie Mendez Primary Care Provider [phone] [phone] Allergies No known active allergies Medications simvastatin [...] Encounters Date Type Department Care Team Description 08/29/2025 Transcribe Orders [facility] [address] [place] [address] Christie Mendez PA 08/23/[address] [facility] Department [address] [place] [address] Christie Mendez PA Asymptomatic menopausal state (Primary Dx) from Last 3 Months Social History Tobacco [...] Description 12/18/2025 3:00 PM EST Office Visit [facility] [address] [place] [address] Temo Manzanares DO [address] [place] [address] 01/22/2026 11:45 AM EDT Appointment [facility], Bone Density - [facility] [address] [place] [address] Christie Mendez PA [address] [place] [phone] Health Maintenance Due Date Last Done Comments Adult Td,Tdap Booster 1940 DEPRESSION SCREENING 1952 PNEUMOCOCCAL VACCINES (50+ years) (1 of 1 - PCV) 01/20/1990 OSTEOPOROSIS SCREENING INITI AL (ONE-TIME) 01/20/2005 RSV VACCINE (1 - 1-dose 75+ series) 01/20/2015 INFLUENZA VACCINE (#1) 2025 COVID-19 VACCINE ( - 2024-2 6 season) 2025 CREATININE LEVEL 03/16/2026 03/16/2025 POTASSIUM LEVEL 03/16/2026 [...] 2 diabetes mellitus without complication, unspecified whether senior living insulin use from Last 3 Months or Most Recently Relevant to Health Maintenance Results * (ABNORMAL) Comprehensive metabolic panel (03/16/2025 7:25 AM EDT) SODIUM 140 133 - 146 mmol/L [facility] POTASSIUM 5.1 3.3 - 5.1 mmol/L [facility] CHLORIDE 104 96 - 108 mmol/L [facility] CO2 25 21 - 35 mmol/L [facility] BUN 34(H) 6 - 19 mg/dL [facility] CREATININE 1.20 0.5 - 1.5 mg/dL [facility] GLUCOSE 130(H) 70 - 99 mg/dL [facility] ALBUMIN 3.8(L) 3.9 - 4.8 g/dL [facility] TOTAL PROTEIN 6.4(L) 6.5 - 8.0 g/dL [facility] CALCIUM 9.7 8.4 - 10.3 mg/dL [facility] ALKALINE PHOSPHATASE 79 39 - 117 U/L [facility] TOTAL BILIRUBIN <0.2 0.0 - 1.2 mg/dL [facility] AST 23 0 - 37 U/L [facility] ALT 21 0 - 40 U/L [facility] GLOBULIN 2.6 1 - 4.8 g/dL [facility] EGFR 44(L) >59 mL/min/1.7 3m2 [facility] Comment:Estimated glomerular filtration rate calculated using the CKD-EPI refit equation. ANION GAP 16 10 - 20 mmol/L [facility] 03/16/2025 7:25 AM EDT 03/16/2025 8:47 AM EDT us Charles Reich MD LAB BLOOD ORDERABLES Final Resul t Performing Organization Address City/State/[facility] Co de Phone Number [facility] [address] [place] [address] from Last 3 Months or Most Recently Relevant to Health Maintenance Insurance MEDICARE PART A & B BLUE CROSS MEDEX SUPPLEMENT Member Subscriber Plan / Payer (Ef fective 2005-Present) Name:Gayle Rainey Relation to Subscriber:Self Name:Gayle Rainey Payer ID:[id number] (NAIC) Type:Indemnity Address: [facility] [id number] [place] [id number] [facility] SAFETY NET FULL B MEDICARE PART A & B BLUE CROSS MEDEX SUPPLEMENT HEALTH SAFETY NET FULL Member Subscriber Plan / Payer ( fective 2024-) Name:Gayle Rainey Relation to Subscriber:Self Name:Gayle Rainey Payer ID:Not on file Group ID:Not on file Type:Medicaid [address] MED[address] PART A & B [employer] CROSS MEDEX SUPPLEMENT [facility] SAFETY [facility] F[facility] & B [employer] MEDEX SUPPLEMENT HEALTH SAFETY NET FULL [facility] PART A & B [employer] CROSS MEDEX SUPPLEMENT HEALTH SAFETY NET FULL B MEDICARE PART A & B Member Subscriber Plan / Payer (Ef fective 2006-Present) Name:Gayle Rainey Member ID:[id number] Relation to Subscriber:Self Name:Gayle Rainey Subscriber ID:[id number] Payer ID:[id number] Group ID:Not on file Type:Medicare Address: [facility] [employer] [facility] online travellers [employer] [facility] [address] [place] [address] [facility] MEDEX SUPPLEMENT HEALTH SAFETY NET FULL [facility] [employer] Care Teams Mountain Services Manager Relationship Specialty Start Date End Date Christie Mendez PA [address] [place] [phone] PCP - General Physician Icer Machine Operator 08/24/23 Additional Source Comments The information contained in this document represents components of the legal health record. It is not the complete legal health record.[facility]
[2025-09-10 15:08] LABS: MANUAL DIFF FLAG NO
[2025-09-10 15:14] LABS: Hematocrit 38.7 % (37.0-47.0); Hemoglobin 12.6 g/dl (12.0-16.0); Imm Gran Abs Auto 0.13 X10*3/uL (0.00-0.03); Imm Gran Pct Auto 1.2 % (0.0-0.4); Lymphocytes Absolute Auto 0.8 X10*3/uL (1.2-4.9); Mean Corpuscular HGB Conc 32.6 g/dl (31.0-35.0); Mean Corpuscular Hemoglobin 31.3 pg (27.0-33.0); Mean Corpuscular Volume 96.0 fL (80.0-98.0); NRBC Abs Auto 0.000 X10*3/uL (0.0-0.012); NRBC Pct Auto 0.0 /100WBC (0.0-0.2); Platelet Count 277 X10*3/uL (160-400); Red Blood Count 4.03 X10*6/uL (4.20-5.50); White Blood Count 10.8 X10*3/uL (4.8-10.8)
[2025-09-10 15:26] LABS: Alanine Aminotransferase 15 U/L (0-31); Albumin Level 4.2 g/dL (3.5-5.0); Alkaline Phosphatase 72 U/L (39-117); Anion Gap 16 (12-20); Aspartate Amino Transferase 25 U/L (5-31); Blood Urea Nitrogen 33 mg/dL (9-16); Calcium 9.7 mg/dL (8.4-10.2); Carbon Dioxide 26 mmol/L (22-29); Chloride 105 mmol/L (96-108); Creatinine Clr Calc Pharmacy 30.6; Estimated Glomerular Filt Rate 45; Potassium 5.0 mmol/L (3.3-5.1); Sodium 142 mmol/L (135-145); Total Protein 7.3 g/dL (6.5-8.0)
[2025-09-10 15:47] LABS: INTERNATIONAL NORM RATIO 1.2 (0.9-1.1); Prothrombin Time 14.3 SEC (10.9-12.4)
[2025-09-10 15:49] LABS: Partial Thromboplastin Time 33.8 SEC (26.7-34.1)
[2025-09-10 18:39] VITALS: BP 164/58; PULSE 74; RESP 18; O2SAT 92
[2025-09-10] MEDS: Hum Prothrombin Cplx(PCC)4Fact 2,000 UNIT in Container,Empty 0 ML 480 UNIT IV (19:24)
--- NOTE | 2025-09-10 19:43 | PC.NURSE ---
assumed care of, pt reports 10/10 pain, respirations even and unlabored. Pt assisted to bed an, tolerated poor due to pain. Able to void. Daughter at bedside. Pt medicated per JAN. EMS arrived, pt asking for morphine, provider to be advised.
[2025-09-10 20:10] VITALS: BP 164/68; PULSE 74; RESP 18; TEMP 37; O2SAT 92
== END 2025-09-10 20:11 | disposition short-term general hospital (02) ==
PROVIDERS: Emergency Provider Emergency Medicine; PCP Physician Assistant
DX: S06.300A Unspecified focal traumatic brain injury without loss of consciousness, initial encounter (principal); R07.89 Other chest pain; I48.0 Paroxysmal atrial fibrillation; R51.9 Headache, unspecified; M54.2 Cervicalgia; E11.9 Type 2 diabetes mellitus without complications; I10 Essential (primary) hypertension; W18.2XXA Fall in (into) shower or empty bathtub, initial encounter; Y93.E1 Activity, personal bathing and showering; Y92.002 Bathroom of unspecified non-institutional (private) residence as the place of occurrence of the external cause; Y99.8 Other external cause status; Z79.01 Long term (current) use of anticoagulants; Z79.4 Long term (current) use of insulin; Z79.899 Other long term (current) drug therapy; Z91.81 History of falling
CPT/HCPCS: 36415; 64466; 70450; 71250; 72125; 80053; 85025; 85610; 85730; 96365; 96366; 96375; 96376; 99285; 99291; J0131; J2270; J7168

== ENCOUNTER → 2025-09-10 13:41 | Outpatient (BNV) | payer MEDICARE, SELFPAY | PROVIDERS: Emergency Provider Emergency Medicine; PCP Physician Assistant; Visit Provider Radiology Diagnostic Radiology | DX: S20.302A Unspecified superficial injuries of left front wall of thorax, initial encounter (principal); J98.11 Atelectasis; Z04.3 Encounter for examination and observation following other accident; R22.0 Localized swelling, mass and lump, head; H74.8X1 Other specified disorders of right middle ear and mastoid | CPT/HCPCS: 70450; 71250; 72125 ==

== ENCOUNTER 2025-10-06 01:04 | Inpatient (IN) | payer MEDICARE, SELFPAY ==
[2025-10-06] VITALS (12 sets, daily range): BP systolic 156–169; BP diastolic 48–76; PULSE 57–76; RESP 13–22; TEMP 36.1–36.6; O2SAT 91–96; BMI 25.8
--- NOTE | ~2025-10-06 | XR_ITS ---
CLINICAL HISTORY: SOB 1 view chest x-ray Comparison: CT/REG/SR - CT CHEST WO IV CON - 09/10/25 16:20 EDT Findings: There may be small bilateral pleural effusions. Ill-defined opacity at the right lung base. Heart size is normal. Osteopenia. No fracture. IMPRESSION: Suspected small bilateral pleural effusions and either atelectasis or consolidation at the right lung base. Recommend follow-up to clearing. This document has been electronically signed by: Cheo Tilley MD on 10/06/2025 02:57:47
--- NOTE | ~2025-10-06 | CT_ITS ---
CLINICAL HISTORY: new pleural effusions, recent hx fall, rib fx CT chest without contrast Comparison: CT/REG/SR - CT CHEST WO IV CON - 09/10/25 16:20 EDT Findings: The heart size is normal. Included lower neck, thyroid gland and mediastinum unremarkable. There is no chest lymphadenopathy. Borderline cardiomegaly without pericardial effusion. The aorta and pulmonary arteries are normal in caliber. There are mitral and aortic valve calcifications. There is a small right-sided pleural effusion. Extensive airspace consolidations with air bronchograms are noted in the right lower lobe, Right middle lobe and left lung base posteriorly. Mild diffuse interstitial vascular congestion. No pneumothorax. Central airways are patent. Included upper abdomen without acute abnormality. The adrenal glands are nonenlarged. There no acute soft tissue abnormality in the chest. There are several healing rib fractures in the left lower hemithorax. IMPRESSION: Airspace consolidations in the right lower lobe, right middle lobe and left lower lobe, with imaging features most compatible with subsegmental atelectasis. Underlying multilobar pneumonia not excluded. There is a small right-sided pleural effusion. There are several healing rib fractures in the left lower hemithorax. There is no pneumothorax. No significant chest lymphadenopathy. This document has been electronically signed by: Colt Arellano MD on 10/06/2025 04:09:59
--- NOTE | 2025-10-06 01:16 | ECG_ITS ---
Test Reason : SOB Blood Pressure : */* mmHG Vent. 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
[2025-10-06 01:34] LABS: MANUAL DIFF FLAG NO
[2025-10-06 01:37] LABS: Venous Blood Gas Refer to POC result
[2025-10-06 01:39] LABS: VBG HCO3 21 mmol/L (22-26); VBG O2 % Saturation 77.0 %
--- OUTSIDE RECORDS SUMMARY | 2025-10-06 01:50 | XMS_ITS | Encounter Summary ---
Author Organization [facility] Address [address] [place] [address] Care Team Providers Care Chiropractic Teacher Name Role Phone Christie Mendez Primary Care Provider [phone] Encounter Details Date Type Department Care Team (Late st Contact Info) Description 10/01/2025 Lab Requisition [facility] - Main Lab [address] [place] [address] Chichi Marshall PA [address] [place] [address] Encounter for other general examination Social History Tobacco Use Types Packs/Day Years Used Date Smoking Tobacco: Never Passive Smoke Exposure: Never Smokeless Tobacco: Never Health Literacy Answer Date Recorded How often [...] Orientation Straight 03/05/2025 2: 59 PM EDT documented as of this encounter Plan of Treatment Not on file documented as of this encounter Procedures Procedure Name Priority Date/Time Associated Diagnosis Comments BASIC METABOLIC PANEL Routine 10/01/2025 5:40 AM EST Encounter for other general examination documented in this encounter Results * (ABNORMAL) Basic metabolic panel (10/01/2025 5:40 AM EST) Sodium 137 133 - 145 mmol/L LAB CHEMISTRY METHOD 10/01/2025 9:50 AM [facility] Potassium 5.5 3.5 - 5.5 mmol/L LAB CHEMISTRY METHOD 10/01/2025 9:50 AM [facility] Chloride 108 96 - 110 mmol/L LAB CHEMISTRY METHOD 10/01/2025 9:50 AM [facility] CO2 21 21 - 32 mmol/L LAB CHEMISTRY METHOD 10/01/2025 9:50 AM [facility] Anion Gap 8 3 - 11 LAB CHEMISTRY METHOD 10/01/2025 9:50 AM [facility] Glucose 95 70 - 100 mg/dL LAB CHEMISTRY METHOD 10/01/2025 9:50 AM [facility] BUN 32(H) 5 - 25 mg/dL LAB CHEMISTRY METHOD 10/01/2025 9:50 AM [facility] Creatinine 1.61(H) 0.50 - 1.10 mg/dL LAB CHEMISTRY METHOD 10/01/2025 9:50 AM [facility] eGFR 31(L) >=60 mL/min/1. 73m2 LAB CHEMISTRY METHOD 10/01/2025 9:50 AM EST [facility] Comment:Calculation based on the Chronic Kidney Disease Epidemiology Collaboration (CKD-EPI) equation refit without adjustment for race. BUN/Creatinine Ratio 19.9 LAB CHEMISTRY METHOD 10/01/2025 9:50 AM EST [facility] Calcium 8.6 8.5 - 10.5 mg/dL LAB CHEMISTRY METHOD 10/01/2025 9:50 AM EST [facility] Blood Venous blood specimen / Unknown Venipuncture / Unknown 10/01/2025 5:40 AM EST 10/01/2025 8:31 AM EST us Chichi ESTES LAB BLOOD ORDERABLES Final Resu lt [facility] [address] [place] [address], documented in this encounter Visit Diagnoses Diagnosis Encounter for other general examination documented in this encounter Additional Health Concerns Assessment Noted Time PHQ-9 Depression Total Score: 0 03/14/20 3:22 PM EDT documented as of this encounter Care Teams Chiropractic Teacher Relationship Specialty Start Date End Date Christie Mendez PA [address] [place] [address] PCP - General 03/05/25 documented as of this encounter
--- OUTSIDE RECORDS SUMMARY | 2025-10-06 01:50 | XMS_ITS | Encounter Summary ---
Author Organization [facility] Address [address] [place] [address] Care Team Providers Care Chicken Vaccinator Name Role Phone Christie Mendez Primary Care Provider [phone] [phone] Encounter Details Date Type Department Care Team (Late st Contact Info) Description 09/30/2025 Lab Requisition [facility] - Main Lab [address] [place] [address] Chichi Marshall PA [address] [place] [address] Other mcc (current) drug therapy Social History Tobacco Use Types Packs/Day Years [...] Associated Diagnosis Comments BASIC METABOLIC PANEL Routine 09/30/2025 6:53 AM EST Other mcc (current) drug therapy documented in this encounter Results * (ABNORMAL) Basic metabolic panel (09/30/2025 6:53 AM EST) Sodium 138 133 - 145 mmol/L LAB CHEMISTRY METHOD 09/30/2025 12:02 PM [facility] Potassium 5.3 3.5 - 5.5 mmol/L LAB CHEMISTRY METHOD 09/30/2025 12:02 PM [facility] Chloride 109 96 - 110 mmol/L LAB CHEMISTRY METHOD 09/30/2025 12:02 PM [facility] CO2 22 21 - 32 mmol/L LAB CHEMISTRY METHOD 09/30/2025 12:02 PM [facility] Anion Gap 7 3 - 11 LAB CHEMISTRY METHOD 09/30/2025 12:02 PM [facility] Glucose 97 70 - 100 mg/dL LAB CHEMISTRY METHOD 09/30/2025 12:02 PM [facility] BUN 29(H) 5 - 25 mg/dL LAB CHEMISTRY METHOD 09/30/2025 12:02 PM [facility] Creatinine 1.35(H) 0.50 - 1.10 mg/dL LAB CHEMISTRY METHOD 09/30/2025 12:02 PM EST [facility] eGFR 39(L) >=60 mL/min/1. 73m2 LAB CHEMISTRY METHOD 09/30/2025 12:02 PM EST [facility] Comment:Calculation based on the Chronic Kidney Disease Epidemiology Collaboration (CKD-EPI) equation refit without adjustment for race. BUN/Creatinine Ratio 21.5 LAB CHEMISTRY METHOD 09/30/2025 12:02 PM EST [facility] Calcium 9.0 8.5 - 10.5 mg/dL LAB CHEMISTRY METHOD 09/30/2025 12:02 PM [facility] Blood Venous blood specimen / Unknown Venipuncture / Unknown 09/30/2025 6:53 AM EST 09/30/2025 11:12 AM EST us Chichi ESTES LAB BLOOD ORDERABLES Final Resu lt [facility] [address] [place] [address], documented in this encounter Visit Diagnoses Diagnosis Other rn long term care (current) drug therapy documented in this encounter Additional Health Concerns Assessment Noted Time PHQ-9 Depression Total Score: 0 03/14/20 3:22 PM EDT documented as of this encounter Care Teams Chicken Vaccinator Relationship Specialty Start Date End Date Christie Mendez PA [address] [place] [address] PCP - General 03/05/25 documented as of this encounter
--- OUTSIDE RECORDS SUMMARY | 2025-10-06 01:50 | XMS_ITS | Clinical Summary ---
Author Organization [facility] Address [address] [facility] [address] [place] [address] Phone Care Team Providers Care Rotating Equipment Specialist Name Role Phone Christie Mendez Primary Care Provider [phone] [phone] Allergies No known active allergies Medications simvastatin [...] Department Care Team Description 08/29/2025 Transcribe Orders [facility] Services [address] [place] [address] Christie Mendez PA 08/23/2025 Transcribe Orders [facility] Department [address] [place] [address] Christie Mendez PA Asymptomatic menopausal state (Primary [...] Description 12/18/2025 3:00 PM EST Office Visit [facility] Geriatrics [address] [place] [address] Temo Manzanares DO [address] [place] [address] 01/22/2026 11:45 AM EDT Appointment [facility], Bone Density - [facility] [address] [place] [address] Christie Mendez PA [address] [place] [address] Health Maintenance Due Date Last Done Comments Adult Td,Tdap Booster 1940 DEPRESSION SCREENING 1952 PNEUMOCOCCAL VACCINES (50+ years) (1 of 1 - PCV) 01/20/1990 OSTEOPOROSIS SCREENING INITI AL (ONE-TIME) 01/20/2005 RSV VACCINE (1 - 1-dose 75+ series) 01/20/2015 INFLUENZA VACCINE (#1) 2025 COVID-19 VACCINE (1 - 2024-2 6 season) 2025 CREATININE LEVEL 03/16/2026 03/16/2025 POTASSIUM LEVEL 03/16/2026 03/16/2025 ZOSTER VACCINES Completed 08/07/2023, 05/23/2023 HEPATITIS A VACCINES Aged Out No long er eligible based on patient's age to complete this topic HIB VACCINES Aged Out No longer eligi ble based on patient's age to complete this topic IPV VACCINES Aged Out No longer eligi ble [...] Date/Time Associated Diagnosis Comments COMPREHENSIVE METABOLIC PANEL (CMP) Routine 03/16/2025 7:25 AM EDT Type 2 diabetes mellitus without complication, unspecified whether intermodal truck driver insulin use from Last 3 Months or Most Recently Relevant to Health Maintenance Results * (ABNORMAL) Comprehensive metabolic panel (03/16/2025 7:25 AM EDT) SODIUM 140 133 - 146 mmol/L [facility] POTASSIUM 5.1 3.3 - 5.1 mmol/L [facility] CHLORIDE 104 96 - 108 mmol/L [facility] CO2 25 21 - 35 mmol/L [facility] BUN 34(H) 6 - 19 mg/dL [facility] CREATININE 1.20 0.5 - 1.5 mg/dL [facility] GLUCOSE 130(H) 70 - 99 mg/dL [facility] ALBUMIN 3.8(L) 3.9 - 4.8 g/dL [facility] TOTAL PROTEIN 6.4(L) 6.5 - 8.0 g/dL [facility] CALCIUM 9.7 8.4 - 10.3 mg/dL [facility] ALKALINE PHOSPHATASE 79 39 - 117 U/L [facility] TOTAL BILIRUBIN <0.2 0.0 - 1.2 mg/dL [facility] AST 23 0 - 37 U/L [facility] ALT 21 0 - 40 U/L [facility] GLOBULIN 2.6 1 - 4.8 g/dL [facility] EGFR 44(L) >59 mL/min/1.7 3m2 [facility] Comment:Estimated glomerular filtration rate calculated using the CKD-EPI refit equation. ANION GAP 16 10 - 20 mmol/L [facility] 03/16/2025 7:25 AM EDT 03/16/2025 8:47 AM EDT us Charles Reich MD LAB BLOOD BKR ORDERABLES Final R esult [facility] [address] [place] [address] from Last 3 Months or Most Recently Relevant to Health Maintenance Insurance MEDICARE PART A & B BLUE CROSS MEDEX SUPPLEMENT [facility] B BLUE CROSS MEDEX SUPPLEMENT Member Subscriber Plan / Payer (Ef fective 2005-Present) Name:Gayle Rainey Relation to Subscriber:Self Name:Gayle Rainey Payer ID:[id number] (NAIC) Type:Indemnity Address: [facility] [id number] NET FULL Member Subscriber Plan / Payer (Ef fective 2024-Present) Name:Gayle Rainey Relation to Subscriber:Self Name:Gayle Rainey Payer ID:Not on file Group ID:Not on file Type:Medicaid [address] A & B BLUE CROSS MEDEX SUPPLEMENT HEALTH SAFETY NET [facility] PART A & B [employer] CROSS MEDEX SUPPLEMENT [facility] SAFETY NET FULL [facility] A & B [employer] CROSS MEDEX SUPPLEMENT HEALTH SAFETY NET FULL B MEDICARE PART A & B [facility] MEDEX SUPPLEMENT HEALTH SAFETY NET FULL [employer] Care Teams Rotating Equipment Specialist Relationship Specialty Start Date End Date Christie Mendez PA [address] [place] [phone] PCP - General Physician Finance Director 08/24/23 Additional Source Comments The information contained in this document represents components of the legal health record. It is not the complete legal health record.[facility]
--- OUTSIDE RECORDS SUMMARY | 2025-10-06 01:50 | XMS_ITS | Encounter Summary ---
Author Organization [facility] Address [address] [place] [address] Care Team Providers Care Quality Control Tech Raw Materials Name Role Phone Christie Mendez Primary Care Provider [phone] [phone] Encounter Details Date Type Department Care Team (Late st Contact Info) Description 09/23/2025 Lab Requisition [facility] - Main Lab [address] [facility] [place] [address] Antelmo Valderrama MD [address] [facility] Cvo Enrollment 1st [place] [address] Encounter for other general examination Social History [...] Procedure Name Priority Date/Time Associated Diagnosis Comments MAGNESIUM Routine 09/23/2025 7:35 AM EST Encounter for other general examination BASIC METABOLIC PANEL Routine 09/23/2025 7:35 AM EST Encounter for other general examination documented in this encounter Results * (ABNORMAL) Basic metabolic panel (09/23/2025 7:35 AM EST) Sodium 137 133 - 145 mmol/L LAB CHEMISTRY METHOD 09/23/2025 10:13 AM [facility] Potassium 4.8 3.5 - 5.5 mmol/L LAB CHEMISTRY METHOD 09/23/2025 10:13 AM [facility] Chloride 104 96 - 110 mmol/L LAB CHEMISTRY METHOD 09/23/2025 10:13 AM [facility] CO2 28 21 - 32 mmol/L LAB CHEMISTRY METHOD 09/23/2025 10:13 AM [facility] Anion Gap 5 3 - 11 LAB CHEMISTRY METHOD 09/23/2025 10:13 AM [facility] Glucose 135(H) 70 - 100 mg/dL LAB CHEMISTRY METHOD 09/23/2025 10:13 AM [facility] BUN 24 5 - 25 mg/dL LAB CHEMISTRY METHOD 09/23/2025 10:13 AM [facility] Creatinine 1.25(H) 0.50 - 1.10 mg/dL LAB CHEMISTRY METHOD 09/23/2025 10:13 AM EST [facility] eGFR 42(L) >=60 mL/min/1. 73m2 LAB CHEMISTRY METHOD 09/23/2025 10:13 AM [facility] Comment:Calculation based on the Chronic Kidney Disease Epidemiology Collaboration (CKD-EPI) equation refit without adjustment for race. BUN/Creatinine Ratio 19.2 LAB CHEMISTRY METHOD 09/23/2025 10:13 AM [facility] Calcium 9.2 8.5 - 10.5 mg/dL LAB CHEMISTRY METHOD 09/23/2025 10:13 AM [facility] Blood Venous blood specimen / Unknown 09/23/2025 7:35 AM EST 09/23/2025 9:27 AM EST us Antelmo Valderrama MD LAB BLOOD ORDERABLES Final Resu lt Performing Organization Address City/[facility]/ZIP Co de Phone Number [facility] [address] [place] [address], [place] [phone] * (ABNORMAL) Magnesium (09/23/2025 7:35 AM EST) Magnesium 1.8(L) 1.9 - 2.6 mg/dL LAB CHEMISTRY METHOD 09/23/2025 10:13 AM EST [facility] Blood Venous blood specimen / Unknown 09/23/2025 7:35 AM EST 09/23/2025 9:27 AM EST us Antelmo Valderrama MD LAB BLOOD ORDERABLES Final Resu lt Performing Organization Address City/[facility]/ZIP Co de Phone Number [facility] [address] [place] [address], [place] [phone] documented in this encounter Visit Diagnoses Diagnosis Encounter for other general examination documented in this encounter Additional Health Concerns Assessment Noted Time PHQ-9 Depression Total Score: 0 03/14/20 3:22 PM EDT documented as of this encounter Care Teams Quality Control Tech Raw Materials Relationship Specialty Start Date End Date Christie Mendez PA [address] [place] [phone] PCP - General 03/05/25 documented as of this encounter
--- OUTSIDE RECORDS SUMMARY | 2025-10-06 01:50 | XMS_ITS | Encounter Summary ---
Author Organization [facility] Address [address] [place] [address] Care Team Providers Care Nurse Aide Name Role Phone Christie Mendez Primary Care Provider [phone] [phone] Encounter Details Date Type Department Care Team (Late st Contact Info) Description 09/22/2025 Lab Requisition [facility] - Main Lab [address] [facility] [place] [address] Charles Franz PA [address] [facility] [address] [place] [phone] Other terminal system operator (current) drug therapy Social History Tobacco Use [...] Procedure Name Priority Date/Time Associated Diagnosis Comments CBC WITH AUTO DIFFERENTIAL Routine 09/22/2025 6:29 AM EST Other terminal system operator (current) drug therapy CBC AND DIFFERENTIAL Routine 09/22/2025 6:29 AM EST Other terminal system operator (current) drug therapy MAGNESIUM Routine 09/22/2025 6:29 AM EST Other halfway (current) drug therapy COMPREHENSIVE METABOLIC PANEL Routine 09/22/2025 6:29 AM EST Other halfway (current) drug therapy documented in this encounter Results * (ABNORMAL) CBC auto differential (09/22/2025 6:29 AM EST) WBC 7.9 4.8 - 10.8 K/mcL LAB HEMETOLOGY METHOD 09/22/2025 10:[address] [facility] RBC 4.10 3.80 - 4.80 M/mcL LAB HEMETOLOGY METHOD 09/22/2025 10:[address] [facility] Hemoglobin 12.8 11.5 - 16.0 g/dL LAB HEMETOLOGY METHOD 09/22/2025 10:[address] [facility] Hematocrit 44.0 35.0 - 47.0 % LAB HEMETOLOGY METHOD 09/22/2025 10:[address] [facility] MCV 108.1(H) 79.0 - 98.0 FL LAB HEMETOLOGY METHOD 09/22/2025 10:[address] [facility] MCH 31.4 27.0 - 32.0 pcg LAB HEMETOLOGY METHOD 09/22/2025 10:[address] [facility] MCHC 29.1(L) 32.0 - 37.0 g/dL LAB HEMETOLOGY METHOD 09/22/2025 10:[address] [facility] RDW 14.0 11.0 - 15.0 % LAB HEMETOLOGY METHOD 09/22/2025 10:[address] [facility] Platelets 296 130 - 400 K/mcL LAB HEMETOLOGY METHOD 09/22/2025 10:[address] [facility] MPV 11.3(H) 7.0 - 11.0 FL LAB HEMETOLOGY METHOD 09/22/2025 10:[address] [facility] NRBC 0.0 <1.0 % LAB HEMETOLOGY METHOD 09/22/2025 10:[address] [facility] NRBC Absolute 0.00 <0.10 K/mcL LAB HEMETOLOGY METHOD 09/22/2025 10:[address] [facility] Neutrophils Relative 77.0 % LAB HEMETOLOGY METHOD 09/22/2025 10:[address] [facility] Lymphocytes Relative 9.8 % LAB HEMETOLOGY METHOD 09/22/2025 10:[address] [facility] Monocytes Relative 8.3 % LAB HEMETOLOGY METHOD 09/22/2025 10:[address] [facility] Eosinophils Relative 2.2 % LAB HEMETOLOGY METHOD 09/22/2025 10:[address] [facility] Basophils Relative 0.9 % LAB HEMETOLOGY METHOD 09/22/2025 10:[address] [facility] Immature Granulocytes Relative 1.8 % LAB HEMETOLOGY METHOD 09/22/2025 10:[address] [facility] Neutrophils Absolute 6.06 1.50 - 7.00 K/[facility] LAB HEMETOLOGY METHOD 09/22/2025 10:[address] [facility] Lymphocytes Absolute 0.77(L) 1.00 - 5.00 K/mcL LAB HEMETOLOGY METHOD 09/22/2025 10:[address] [facility] Monocytes Absolute 0.65 0.20 - 1.00 K/[facility] LAB HEMETOLOGY METHOD 09/22/2025 10:[address] [facility] Eosinophils Absolute 0.17 0.00 - 0.50 K/[facility] LAB HEMETOLOGY METHOD 09/22/2025 10:[address] [facility] Basophils Absolute 0.07 0.00 - 0.20 K/mcL LAB HEMETOLOGY METHOD 09/22/2025 10:[address] [facility] Immature Granulocytes Absolute 0.14(H) 0.00 - 0.03 K/mcL LAB HEMETOLOGY METHOD 09/22/2025 10:[address] [facility] Blood Venous blood specimen / Unknown Venipuncture / Unknown 09/22/2025 6:29 AM EST 09/22/2025 9:06 AM EST us Charles ESTES LAB BLOOD ORDERABLES Final R esult [facility] [address] [place] [address], * Magnesium (09/22/2025 6:29 AM EST) Magnesium 1.9 1.9 - 2.6 mg/dL LAB CHEMISTRY METHOD 09/22/2025 11:[address] [facility] Comment:Hemolysis present Blood Venous blood specimen / Unknown Venipuncture / Unknown 09/22/2025 6:29 AM EST 09/22/2025 9:06 AM EST us Charles ESTES LAB BLOOD ORDERABLES Final R esult [facility] [address] [place] [address], [place] [phone] * (ABNORMAL) Comprehensive metabolic panel (09/22/2025 6:29 AM EST) Sodium 139 133 - 145 mmol/L LAB CHEMISTRY METHOD 09/22/2025 11:[address] [facility] Potassium 5.4 3.5 - 5.5 mmol/L LAB CHEMISTRY METHOD 09/22/2025 11:[address] [facility] Comment:Hemolysis present Chloride 107 96 - 110 mmol/L LAB CHEMISTRY METHOD 09/22/2025 11:[address] [facility] CO2 21 21 - 32 mmol/L LAB CHEMISTRY METHOD 09/22/2025 11:[address] [facility] Anion Gap 11 3 - 11 LAB CHEMISTRY METHOD 09/22/2025 11:[address] [facility] Glucose 144(H) 70 - 100 mg/dL LAB CHEMISTRY METHOD 09/22/2025 11:[address] [facility] BUN 21 5 - 25 mg/dL LAB CHEMISTRY METHOD 09/22/2025 11:[address] [facility] Creatinine 1.05 0.50 - 1.10 mg/dL LAB CHEMISTRY METHOD 09/22/2025 11:[address] [facility] eGFR 52(L) >=60 mL/min/1. 73m2 LAB CHEMISTRY METHOD 09/22/2025 11:[address] [facility] Comment:Calculation based on the Chronic Kidney Disease Epidemiology Collaboration (CKD-EPI) equation refit without adjustment for race. BUN/Creatinine Ratio 20.0 LAB CHEMISTRY METHOD 09/22/2025 11:[address] [facility] Calcium 9.1 8.5 - 10.5 mg/dL LAB CHEMISTRY METHOD 09/22/2025 11:[address] [facility] AST (SGOT) 45(H) 10 - 42 unit/L LAB CHEMISTRY METHOD 09/22/2025 11:[address] [facility] Comment:Hemolysis present ALT (SGPT) 57 10 - 60 unit/L LAB CHEMISTRY METHOD 09/22/2025 11:[address] [facility] Alkaline Phosphatase 95 42 - 121 unit/L LAB CHEMISTRY METHOD 09/22/2025 11:[address] [facility] Total Protein 6.3 6.0 - 8.0 g/dL LAB CHEMISTRY METHOD 09/22/2025 11:[address] [facility] Albumin 2.8(L) 3.2 - 5.0 g/dL LAB CHEMISTRY METHOD 09/22/2025 11:[address] [facility] Total Bilirubin 0.3 0.0 - 1.4 mg/dL LAB CHEMISTRY METHOD 09/22/2025 11:[address] [facility] Blood Venous blood specimen / Unknown Venipuncture / Unknown 09/22/2025 6:29 AM EST 09/22/2025 9:06 AM EST Charles ESTES LAB BLOOD ORDERABLES Final R esult [facility] [address] [place] [address], documented in this encounter Visit Diagnoses Diagnosis Other terminal system operator (current) drug therapy documented in this encounter Additional Health Concerns Assessment Noted Time PHQ-9 Depression Total Score: 0 03/14/20 25 3:22 PM EDT documented as of this encounter Care Teams Nurse Aide Relationship Specialty Start Date End Date Christie Mendez PA [address] [place] [phone] PCP - General 03/05/25 documented as of this encounter
--- OUTSIDE RECORDS SUMMARY | 2025-10-06 01:50 | XMS_ITS | Encounter Summary ---
Author Organization [facility], Address [address] [place] [address] Phone Care Team Providers Care Outpatient Surgery Rn Name Role Phone Gali Oliva MD Primary Care Prov ider Encounter Details Date Type Department Care Team (Late st Contact Info) Description 10/02/2025 Documentation Only [facility], [address] [place] [address] [place] [address] [place] [address] Social History Tobacco Use Types Packs/Day Years Used Date Smoking Tobacco: Never Assessed Comments Unknown Sex and Gender Information Value Date Recorded Sex Assigned at Not on file Legal Sex Female 1:38 PM EST Gender Identity Not on file Sexual Orientation Not on file documented as of this encounter Plan of Treatment Not on file documented as of this encounter Visit Diagnoses Not on filedocumented in this encounter Care Teams Outpatient Surgery Rn Relationship Specialty Start Date End Date Gali Oliva MD [address] [place] [phone] PCP - General Family Medicine 10/02/25 documented as of this encounter
--- OUTSIDE RECORDS SUMMARY | 2025-10-06 01:50 | XMS_ITS | Clinical Summary ---
Author Organization [facility] Address [address] [place] [address] Phone Care Team Providers Care Behavioral Sciences Department Chair Name Role Phone Christie Mendez Primary Care Provider [phone] [phone] Allergies No known active allergies Medications omeprazole [...] Date Chronic atrial fibrillation ([facility] V24, [facility] V28) 03/07/2025 Pubic ramus fracture ([facility] V24, [facility] V28) 03/06/2025 Encounters Date Type Department Care Team Description 10/04/2025 Lab Requisition [facility] Main Lab [address] [place] [address] Charles Franz PA Encounter for other general examination 10/02/2025 Lab Requisition [facility] Lab [address] [place] [address] Chichi Marshall PA Encounter for other general examination 10/01/2025 Lab Requisition [facility] Lab [address] [place] [address] Chichi Marshall PA Encounter for other general examination 09/30/2025 Lab Requisition [facility] Lab [address] [place] [address] Chichi Marshall PA Other supervisor intermediates (current) drug therapy 09/27/2025 Lab Requisition [facility] Lab [address] [place] [address] Charles Franz PA Encounter for other general examination 09/23/2025 Lab Requisition [facility] Lab [address] [place] [address] Antelmo Valderrama MD Encounter for other general examination 09/22/2025 Lab Requisition [facility] Main Lab [address] [place] [address] Charles Franz PA Other group home (current) drug therapy from Last 3 Months Medical History Medical History Date Comments Diabetes mellitus ([facility] V24, [facility] V28) Hypertension Hyperlipidemia Social History Tobacco Use [...] Health Maintenance Due Date Last Done Comments DTaP,Tdap,and Td Vaccines (1 - Tdap) 01/20/1959 Pneumococcal Vaccine: 50+ Years (1 of 2 - PCV) 01/20/1959 RSV Immunization Adult Patients (1 - 1-dose 75+ series) 01/20/2015 Cholesterol Screening (Lipid Panel) 03/05/2025 Medicare Annual Wellness Visit 03/05/2025 Osteoporosis Screening (Bone Density Screening) 03/05/2025 COVID-19 Vaccine ( - 2024-2 6 season) 2025 Influenza Vaccine (#1) 2025 , 10/01/2023 Social Influencers of Health Screening 03/14/2026 03/14/2025 Falls Risk Assessment 03/15/2026 03/15/2025 Zoster Vaccines Completed 08/07/2023, 05/23/2023 Depression Screening [...] 20 months Aged Out No longer eligible b ased on patient's age to complete this topic Varicella Vaccines Aged Out No longer eligible based on patient's age to complete this topic Procedures Procedure Name Priority Date/Time Associated Diagnosis Comments BASIC METABOLIC PANEL Routine 10/04/2025 6:44 AM EST Encounter for other general examination BASIC METABOLIC PANEL Routine 10/02/2025 6:34 AM EST Encounter for other general examination BASIC METABOLIC PANEL Routine 10/01/2025 5:40 AM EST Encounter for other general examination BASIC METABOLIC PANEL Routine 09/30/2025 6:53 AM EST Other group home (current) drug therapy BASIC METABOLIC PANEL Routine 09/27/2025 7:18 AM EST Encounter for other general examination BASIC METABOLIC PANEL Routine 09/23/2025 7:35 AM EST Encounter for other general examination MAGNESIUM Routine 09/23/2025 7:35 AM EST Encounter for other general examination CBC WITH AUTO DIFFERENTIAL Routine 09/22/2025 6:29 AM EST Other supervisor intermediates (current) drug therapy MAGNESIUM Routine 09/22/2025 6:29 AM EST Other group home (current) drug therapy COMPREHENSIVE METABOLIC PANEL Routine 09/22/2025 6:29 AM EST Other supervisor intermediates (current) drug therapy CBC AND DIFFERENTIAL Routine 09/22/2025 6:29 AM EST Other group home (current) drug therapy from Last 3 Months Results * (ABNORMAL) Basic metabolic panel (10/04/2025 6:44 AM EST) Only the most recent of6 resultswithin the time period is included. Sodium 137 133 - 145 mmol/L 10/04/2025 10:42 AM EST [facility] Potassium 4.9 3.5 - 5.5 mmol/L 10/04/2025 10:42 AM EST [facility] Chloride 105 96 - 110 mmol/L 10/04/2025 10:42 AM EST [facility] CO2 20(L) 21 - 32 mmol/L 10/04/2025 10:42 AM [facility] Anion Gap 12(H) 3 - 11 10/04/2025 10:42 AM [facility] Glucose 147(H) 70 - 100 mg/dL 10/04/2025 10:42 AM [facility] BUN 25 5 - 25 mg/dL 10/04/2025 10:42 AM [facility] Creatinine 1.22(H) 0.50 - 1.10 mg/dL 10/04/2025 10:42 AM [facility] eGFR 44(L) >=60 mL/min/1. 73m2 10/04/2025 10:42 AM [facility] Comment:Calculation based on the Chronic Kidney Disease Epidemiology Collaboration (CKD-EPI) equation refit without adjustment for race. BUN/Creatinine Ratio 20.5 10/04/2025 10:42 AM [facility] Calcium 9.0 8.5 - 10.5 mg/dL 10/04/2025 10:42 AM [facility] Blood Venous blood specimen / Unknown Venipuncture / Unknown 10/04/2025 6:44 AM EST 10/04/2025 9:35 AM EST Charles ESTES LAB BLOOD ORDERABLES Final R esult [facility] [address] [place] [address], * (ABNORMAL) Magnesium (09/23/2025 7:35 AM EST) Only the most recent of2 resultswithin the time period is included. Magnesium 1.8(L) 1.9 - 2.6 mg/dL LAB CHEMISTRY METHOD 09/23/2025 10:13 AM [facility] Blood Venous blood specimen / Unknown 09/23/2025 7:35 AM EST 09/23/2025 9:27 AM EST us Antelmo Valderrama MD LAB BLOOD ORDERABLES Final Resu lt [facility] [address] [place] [address], [place] [phone] * (ABNORMAL) CBC auto differential (09/22/2025 6:29 AM EST) WBC 7.9 4.8 - 10.8 K/mcL LAB HEMETOLOGY METHOD 09/22/2025 10:18 AM [facility] RBC 4.10 3.80 - 4.80 M/mcL LAB HEMETOLOGY METHOD 09/22/2025 10:18 AM [facility] Hemoglobin 12.8 11.5 - 16.0 g/dL LAB HEMETOLOGY METHOD 09/22/2025 10:18 AM [facility] Hematocrit 44.0 35.0 - 47.0 % LAB HEMETOLOGY METHOD 09/22/2025 10:18 AM [facility] MCV 108.1(H) 79.0 - 98.0 FL LAB HEMETOLOGY METHOD 09/22/2025 10:18 AM [facility] MCH 31.4 27.0 - 32.0 pcg LAB HEMETOLOGY METHOD 09/22/2025 10:18 AM [facility] MCHC 29.1(L) 32.0 - 37.0 g/dL LAB HEMETOLOGY METHOD 09/22/2025 10:18 AM [facility] RDW 14.0 11.0 - 15.0 % LAB HEMETOLOGY METHOD 09/22/2025 10:18 AM [facility] Platelets 296 130 - 400 K/mcL LAB HEMETOLOGY METHOD 09/22/2025 10:18 AM [facility] MPV 11.3(H) 7.0 - 11.0 FL LAB HEMETOLOGY METHOD 09/22/2025 10:18 AM [facility] NRBC 0.0 <1.0 % LAB HEMETOLOGY METHOD 09/22/2025 10:18 AM [facility] NRBC Absolute 0.00 <0.10 K/mcL LAB HEMETOLOGY METHOD 09/22/2025 10:18 AM [facility] Neutrophils Relative 77.0 % LAB HEMETOLOGY METHOD 09/22/2025 10:18 AM [facility] Lymphocytes Relative 9.8 % LAB HEMETOLOGY METHOD 09/22/2025 10:18 AM [facility] Monocytes Relative 8.3 % LAB HEMETOLOGY METHOD 09/22/2025 10:18 AM [facility] Eosinophils Relative 2.2 % LAB HEMETOLOGY METHOD 09/22/2025 10:18 AM [facility] Basophils Relative 0.9 % LAB HEMETOLOGY METHOD 09/22/2025 10:18 AM [facility] Immature Granulocytes Relative 1.8 % LAB HEMETOLOGY METHOD 09/22/2025 10:18 AM [facility] Neutrophils Absolute 6.06 1.50 - 7.00 K/mcL LAB HEMETOLOGY METHOD 09/22/2025 10:18 AM [facility] Lymphocytes Absolute 0.77(L) 1.00 - 5.00 K/mcL LAB HEMETOLOGY METHOD 09/22/2025 10:18 AM [facility] Monocytes Absolute 0.65 0.20 - 1.00 K/mcL LAB HEMETOLOGY METHOD 09/22/2025 10:18 AM [facility] Eosinophils Absolute 0.17 0.00 - 0.50 K/mcL LAB HEMETOLOGY METHOD 09/22/2025 10:18 AM [facility] Basophils Absolute 0.07 0.00 - 0.20 K/mcL LAB HEMETOLOGY METHOD 09/22/2025 10:18 AM [facility] Immature Granulocytes Absolute 0.14(H) 0.00 - 0.03 K/[facility] LAB HEMETOLOGY METHOD 09/22/2025 10:18 AM [facility] Blood Venous blood specimen / Unknown Venipuncture / Unknown 09/22/2025 6:29 AM EST 09/22/2025 9:06 AM EST us Charles ESTES LAB BLOOD ORDERABLES Final R esult [facility] [address] [place] [address], * (ABNORMAL) Comprehensive metabolic panel (09/22/2025 6:29 AM EST) Sodium 139 133 - 145 mmol/L LAB CHEMISTRY METHOD 09/22/2025 11:28 AM [facility] Potassium 5.4 3.5 - 5.5 mmol/L LAB CHEMISTRY METHOD 09/22/2025 11:28 AM [facility] Comment:Hemolysis present Chloride 107 96 - 110 mmol/L LAB CHEMISTRY METHOD 09/22/2025 11:28 AM [facility] CO2 21 21 - 32 mmol/L LAB CHEMISTRY METHOD 09/22/2025 11:28 AM [facility] Anion Gap 11 3 - 11 LAB CHEMISTRY METHOD 09/22/2025 11:28 AM [facility] Glucose 144(H) 70 - 100 mg/dL LAB CHEMISTRY METHOD 09/22/2025 11:28 AM [facility] BUN 21 5 - 25 mg/dL LAB CHEMISTRY METHOD 09/22/2025 11:28 AM [facility] Creatinine 1.05 0.50 - 1.10 mg/dL LAB CHEMISTRY METHOD 09/22/2025 11:28 AM EST [facility] eGFR 52(L) >=60 mL/min/1. 73m2 LAB CHEMISTRY METHOD 09/22/2025 11:28 AM [facility] Comment:Calculation based on the Chronic Kidney Disease Epidemiology Collaboration (CKD-EPI) equation refit without adjustment for race. BUN/Creatinine Ratio 20.0 LAB CHEMISTRY METHOD 09/22/2025 11:28 AM [facility] Calcium 9.1 8.5 - 10.5 mg/dL LAB CHEMISTRY METHOD 09/22/2025 11:28 AM [facility] AST (SGOT) 45(H) 10 - 42 unit/L LAB CHEMISTRY METHOD 09/22/2025 11:28 AM [facility] Comment:Hemolysis present ALT (SGPT) 57 10 - 60 unit/L LAB CHEMISTRY METHOD 09/22/2025 11:28 AM [facility] Alkaline Phosphatase 95 42 - 121 unit/L LAB CHEMISTRY METHOD 09/22/2025 11:28 AM [facility] Total Protein 6.3 6.0 - 8.0 g/dL LAB CHEMISTRY METHOD 09/22/2025 11:28 AM [facility] Albumin 2.8(L) 3.2 - 5.0 g/dL LAB CHEMISTRY METHOD 09/22/2025 11:28 AM [facility] Total Bilirubin 0.3 0.0 - 1.4 mg/dL LAB CHEMISTRY METHOD 09/22/2025 11:28 AM [facility] Blood Venous blood specimen / Unknown Venipuncture / Unknown 09/22/2025 6:29 AM EST 09/22/2025 9:06 AM EST Charles ESTES LAB BLOOD ORDERABLES Final R esult [facility] [address] [place] [address], from Last 3 Months Insurance MEDICARE MEDICAID - [place] [facility] Advance Directives Documents on File Type Date Recorded 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 Care Teams Behavioral Sciences Department Chair Relationship Specialty Start Date End Date Christie Mendez PA [address] [place] [phone] [facility] - General 03/05/25
--- OUTSIDE RECORDS SUMMARY | 2025-10-06 01:50 | XMS_ITS | Encounter Summary ---
Author Organization [facility] Address [address] [facility] [address] [place] [address] Phone Care Team Providers Care Squeegee Finisher Name Role Phone Christie Mendez Primary Care Provider [phone] Encounter Details Date Type Department Care Team (Late st Contact Info) Description 08/23/2025 Transcribe Orders Virtual Department [address] [place], [place] [phone] Christie Mendez PA [address] [place] [phone] Asymptomatic menopausal state (Primary Dx) Social [...] 12/18/2025 3:00 PM EST Office Visit [facility] [address] [place] [address] Temo Manzanares, [address] [place] [address] 01/22/2026 11:45 AM EDT Appointment [facility], Bone Density - [facility] [address] [place] [address] Christie Mendez PA [address] [place] [phone] Scheduled Orders Name Type Priority Associated Diagnoses Orde r Schedule DXA Screening Imaging Routine Asymptomatic menopausal state Expected: 09/22/2025, Expires: 08/23/2026 documented as of this encounter Visit Diagnoses Diagnosis Asymptomatic menopausal state- Primary documented in this encounter Care Teams Squeegee Finisher Relationship Specialty Start Date End Date Christie Mendez PA [address] [place] [phone] PCP - General Physician Yard Goods Salesperson 08/24/23 documented as of this encounter Additional Source Comments The information contained in this document represents components of the legal health record. It is not the complete legal health record.[facility]
--- OUTSIDE RECORDS SUMMARY | 2025-10-06 01:50 | XMS_ITS | Encounter Summary ---
Author Organization [facility] Address [address] [facility] [address] [place] [address] Phone Care Team Providers Care Quality Assurance Monitor Name Role Phone Christie Mendez Primary Care Provider [phone] Encounter Details Date Type Department Care Team (Late st Contact Info) Description 08/29/2025 Transcribe Orders [facility] [address] [place] [address] Christie Mendez PA [address] [place] [phone] Social History Tobacco Use Types Packs/Day Years [...] Description 12/18/2025 3:00 PM EST Office Visit [facility] [address] [place] [address] Temo Manzanares DO [address] [place] [address] 01/22/2026 11:45 AM EDT Appointment [facility], [facility] - [facility] [address] [place] [address] Christie Mendez PA [address] [place] [phone] documented as of this encounter Visit Diagnoses Not on filedocumented in this encounter Care Teams Quality Assurance Monitor Relationship Specialty Start Date End Date Christie Mendez PA [address] [place] [phone] PCP - General Physician Line Maintenance Technician 08/24/23 documented as of this encounter Additional Source Comments The information contained in this document represents components of the legal health record. It is not the complete legal health record.[facility]
--- OUTSIDE RECORDS SUMMARY | 2025-10-06 01:50 | XMS_ITS | Encounter Summary ---
Author Organization [facility] Address [address] [place] [address] Care Team Providers Care Body Engineer Name Role Phone Christie Mendez Primary Care Provider [phone] Encounter Details Date Type Department Care Team (Late st Contact Info) Description 10/04/2025 Lab Requisition [facility] - Main Lab [address] [facility] [place] [address] Charles Franz PA [address] [facility] 1 [place] [phone] Encounter for other general examination Social History [...] encounter Results * (ABNORMAL) Basic metabolic panel (10/04/2025 6:44 AM EST) Sodium 137 133 - 145 mmol/L 10/04/2025 10:42 AM [facility] Potassium 4.9 3.5 - 5.5 mmol/L 10/04/2025 10:42 AM [facility] Chloride 105 96 - 110 mmol/L 10/04/2025 10:42 AM [facility] CO2 20(L) 21 - 32 mmol/L 10/04/2025 10:42 AM [facility] Anion Gap 12(H) 3 - 11 10/04/2025 10:42 AM [facility] Glucose 147(H) 70 - 100 mg/dL 10/04/2025 10:42 AM [facility] BUN 25 5 - 25 mg/dL 10/04/2025 10:42 AM [facility] Creatinine 1.22(H) 0.50 - 1.10 mg/dL 10/04/2025 10:42 AM [facility] eGFR 44(L) >=60 mL/min/1. 73m2 10/04/2025 10:42 AM EST [facility] Comment:Calculation based on the Chronic Kidney Disease Epidemiology Collaboration (CKD-EPI) equation refit without adjustment for race. BUN/Creatinine Ratio 20.5 10/04/2025 10:42 AM [facility] Calcium 9.0 8.5 - 10.5 mg/dL 10/04/2025 10:42 AM [facility] Blood Venous blood specimen / Unknown Venipuncture / Unknown 10/04/2025 6:44 AM EST 10/04/2025 9:35 AM EST us Charles ESTES LAB BLOOD ORDERABLES Final R esult [facility] [address] [place] [address], documented in this encounter Visit Diagnoses Diagnosis Encounter for other general examination documented in this encounter Additional Health Concerns Assessment Noted Time PHQ-9 Depression Total Score: 0 03/14/20 3:22 PM EDT documented as of this encounter Care Teams Body Engineer Relationship Specialty Start Date End Date Christie Mendez PA [address] [place] [address] PCP - General 03/05/25 documented as of this encounter
--- OUTSIDE RECORDS SUMMARY | 2025-10-06 01:50 | XMS_ITS | Clinical Summary ---
Author Organization [facility] Address [address] [place] [address] Phone Care Team Providers Care Lawyers Name Role Phone Gali Oliva MD Primary Care Prov ider Encounters Date Type Department Care Team Description 10/02/2025 Documentation Only [facility], [address] [place] [address] Zenobia Cespedes [place] from Last 3 Months Social History Tobacco Use Types Packs/Day Years Used Date Smoking Tobacco: Never Assessed Comments Unknown Sex and Gender Information Value Date Recorded Sex Assigned at Not on file Legal Sex Female 1:38 PM EST Gender Identity Not on file Sexual Orientation Not on file Plan of Treatment Health Maintenance Due Date Last Done Comments Pneumococcal Vaccine: 50+ Ye ars (1 of 2 - PCV) 01/20/1959 Influenza Vaccine (#1) 2025 Hepatitis B Vaccine Aged Out No longe r eligible based on patient's age to complete this topic Insurance Medicare [facility] Care Teams Lawyers Relationship Specialty Start Date End Date Gali Oliva MD [address] [place] [address] PCP - General Family Medicine 10/02/25
--- OUTSIDE RECORDS SUMMARY | 2025-10-06 01:50 | XMS_ITS | Encounter Summary ---
Author Organization [facility] Address [address] [place] [address] Care Team Providers Care Head Insulation Board Saw Operator Name Role Phone Christie Mendez Primary Care Provider [phone] Encounter Details Date Type Department Care Team (Late st Contact Info) Description 09/27/2025 Lab Requisition [facility] - Main Lab [address] [facility] [place] [address] Charles Franz PA [address] [facility] 1 [place] [phone] Encounter for other general examination Social History [...] Associated Diagnosis Comments BASIC METABOLIC PANEL Routine 09/27/2025 7:18 AM EST Encounter for other general examination documented in this encounter Results * (ABNORMAL) Basic metabolic panel (09/27/2025 7:18 AM EST) Sodium 139 133 - 145 mmol/L LAB CHEMISTRY METHOD 09/27/2025 11:45 AM [facility] Potassium 4.8 3.5 - 5.5 mmol/L LAB CHEMISTRY METHOD 09/27/2025 11:45 AM [facility] Chloride 108 96 - 110 mmol/L LAB CHEMISTRY METHOD 09/27/2025 11:45 AM [facility] CO2 23 21 - 32 mmol/L LAB CHEMISTRY METHOD 09/27/2025 11:45 AM [facility] Anion Gap 8 3 - 11 LAB CHEMISTRY METHOD 09/27/2025 11:45 AM [facility] Glucose 124(H) 70 - 100 mg/dL LAB CHEMISTRY METHOD 09/27/2025 11:45 AM [facility] BUN 26(H) 5 - 25 mg/dL LAB CHEMISTRY METHOD 09/27/2025 11:45 AM [facility] Creatinine 1.24(H) 0.50 - 1.10 mg/dL LAB CHEMISTRY METHOD 09/27/2025 11:45 AM EST [facility] eGFR 43(L) >=60 mL/min/1. 73m2 LAB CHEMISTRY METHOD 09/27/2025 11:45 AM EST [facility] Comment:Calculation based on the Chronic Kidney Disease Epidemiology Collaboration (CKD-EPI) equation refit without adjustment for race. BUN/Creatinine Ratio 21.0 LAB CHEMISTRY METHOD 09/27/2025 11:45 AM EST [facility] Calcium 9.0 8.5 - 10.5 mg/dL LAB CHEMISTRY METHOD 09/27/2025 11:45 AM EST [facility] Blood Venous blood specimen / Unknown 09/27/2025 7:18 AM EST 09/27/2025 10:44 AM EST Charles ESTES LAB BLOOD ORDERABLES Final R esult [facility] [address] [place] [address], documented in this encounter Visit Diagnoses Diagnosis Encounter for other general examination documented in this encounter Additional Health Concerns Assessment Noted Time PHQ-9 Depression Total Score: 0 03/14/20 3:22 PM EDT documented as of this encounter Care Teams Head Insulation Board Saw Operator Relationship Specialty Start Date End Date Christie Mendez PA [address] [place] [phone] PCP - General 03/05/25 documented as of this encounter
--- OUTSIDE RECORDS SUMMARY | 2025-10-06 01:50 | XMS_ITS | Data Portability ---
Author Organization [facility], Main Office Address [address] [facility] [address] [place] [address] Care Team Providers Care Sales And Marketing Administrator Name Role Phone HOLLAND CARVAJAL ([place]) [...] Closed fracture of pubic ramus Active [address], [address], [place], [address], [employer] 10:06:43 Recurrent falls 051281592 Active [address], [address], [place], [address], [employer] 5 10:06:48 Paroxysmal atrial fibrillation 653086922 Active [address], [address], [place], [address], [employer] 5 10:07:06 Essential hypertension 44687950 Active [address], [address], [place], [address], [employer] 5 10:07:15 Mixed hyperlipidemia 618809618 Active [address], [address], [place], [address], [employer] 5 10:07:23 Type 2 diabetes mellitus 65791560 Active [address], [address], [place], [address], [place] [employer] 5 10:08:04 Gastro-esophag eal reflux disease with esophagitis 086733528 Active [address], [address], [place], [address], [facility] 5 10:08:12 Chronic anemia 400758220 Active [address], [address], [place], [address], [facility] 5 10:08:19 Recurrent urinary tract infection 548880202 Active [address], [address], [place], [address], [facility] 5 10:08:27 Chronic kidney disease stage 3A 100879206 Active 2024 Dalia Matthew MD [address] [place] [address], [address], [place], [address], [facility] 5 16:07:13 Anemia of chronic disease 658387969 Active 2024 Dalia Matthew MD [address] [place] [address], [address], [place], [address], [facility] 5 16:14:08 Gastroesophage al reflux disease without esophagitis 736772626 Active 2024 Dalia Matthew MD [address] [place] [address], [address], [place], [address], [facility] 5 16:14:10 Hyperlipidemia 05951883 Active 2024 Dalia Matthew MD [address] [place] [address], [address], [place], [address], [facility] 5 16:14:16 Problem Notes None recorded. [...] rate Respiratory rate Body temperature Oxygen saturation Systolic And Diastolic Provider Name and Address Organization Details Last Updated DateTime 5 162.56 cm 24.4 kg/m2 52971.1 2 g 80 /min 17 /min 97.4 [degF] 94 % 154/62 mm[Hg] Dalia Matthew MD [address] [facility] [address], [place], [address], [employer] [facility] [facility] 5 12:57:46 Social History Question Answer Notes LastModified by Organization Details LastModified Time Tobacco Smoking Status Never Smoker Dalia Matthew MD [address] [place] [address], [place], [address], [facility] 03/23/2025 15:56:16 Do You Have An Advance Directive? Yes Information not available 03/23/2025 What Is Your Code Status? DNR/DNI Information not available 03/23/2025 Where Do You Live? SingleLevelHouse With Daughter And DORIS. 3 Steps To Enter House In Front And Back. Information not available 03/23/2025 Legal Guardian? No Informati on not available 03/23/2025 Do You Have A Medical Power Of Automation Controls Specialist? Yes Not Invoked Information not available 03/23/2025 [...] Time influenza, unspecified formulation 10/01/2023 completed [facility] 03/17/2025 11:51:02 influenza, unspecified formulation 08/17/2024 completed [facility] 03/17/2025 11:51:06 zoster, unspecified formulation 05/23/2023 completed [facility] 03/17/2025 11:51:17 zoster, unspecified formulation 08/07/2023 completed Jose jeong [facility] 03/17/2025 11:51:22 Past Encounters Encounter ID Performer Location Encounter Start Date Encounter Closed Date Diagnosis/Indication Diagnosis SNOMED-CT Code Diagnosis ICD10 Code Diagnosis IMO Codes Diagnosis Note [id number] SHARMAINE CARVAJAL [address] [place] [address] 03/16/2025 09:47:20 03/21/2025 13:35:17 Closed fracture of pubic ramus 5189969216 S32.591D 58483990 no surgical interventi onWBAT to RLEPT OT eval and treatfollo w up with ortho as indicatedm onitor pain control - apap and oxycodone q 6 hours PRN Recurrent falls 52159207 2 R29.6 51698 PT OT eval and treat Paroxysmal atrial fibrillation 535005635 I48.0 59709 continue eliquis 5 mg BIDamiodar one 200 mg dailymonit or rate Essential hypertension 24326905 I10 07368 losartan 50 mg dialyamlod ipine 10 mg dailymonit or bps Mixed hyperlipidemia 267 965298 E78.2 42575 pravastati n 20 mg qhsmonitor lipids Gastro-eso phageal reflux disease with esophagitis 101271924 K21.00 7268010254 continue PPI 40 mg dailymonit or for reflux sxs Chronic anemia 383790588 D64.9 042998 ferrous sulfate 325 mg BIDMVI dailymonit or labs Recurrent urinary tract infection 774776339 N39.0 667640 continue cefuroxime 250 mg BID x 10 days- end date 5/6monitor for resolution of sxs Type 2 anna betes mellitus 19208702 E11.9 Z79.4 57080979 admelog SS with accuchecks metformin 500 mg BIDlantus 12 units daily [id number] SHARMAINE CARVAJAL [address] [place] [address] 03/22/2025 09:43:26 03/24/2025 11:35:12 Closed fracture of pubic ramus 0338442494 S32.591D 30856924 continue PT, see care conference notesfollo w up with ortho as indicatedm onitor pain control - apap and oxycodone q 6 hours PRNpatient denies pain at this visitusing WC at this time Paroxysmal atrial fibrillation 644517657 I48.0 82694 rate controlled at 83 todayconti nue eliquis 5 mg BIDamiodar one 200 mg dailymonit or rate Essential hypertension 71567612 I10 17944 controlled for patient 140/60cont inue losartan 50 mg dialyamlod ipine 10 mg dailymonit or bps Recurrent urinary tract infection N39.0 609999 resolved s.p abxdenies any urinary sxs today Type 2 anna betes mellitus 79590478 E11.9 Z79.4 93918594 admelog SS with accuchecks - on review with nurse mostly controlled around between 100-150met formin 500 mg BIDlantus 12 units daily [id number] MD HOLLAND Hallman [address] [place] [address] 03/23/2025 12:34:08 03/24/2025 12:11:16 Closed fracture of pubic ramus 8566537329 S32.591D 31015510 Mobility much improved, but pain not really getting better yet.Contin ue lidocaine patches, APAP 650 mg q 6 hrs prn and oxycodone q 6 hrs prn.Very deconditio robert.Needs PT/OT for strengthen ing, balance, gait training, safety and function.C ontinue fall precaution s.Monitor for safety.F/U with ortho as planned. Paroxysmal atrial fibrillation 139587964 I48.0 05370 Without recent evidence of Afib, has been in NSR on recent assessment s.Continue amiodarone 200 mg qdContinue eliquis 5 mg BID for AC.Monitor HR and bleeding risk. Essential hypertension 43184604 I10 43192 With some borderline SBPs, but DBPs all low.Contin ue losartan 50 mg qd and amlodipine 10 mg qdMonitor BP and labs Recurrent urinary tract infection N39.0 624396 Hx of frequent UTIs.Compl eted abx on 03/21.Monito r for recurrent sxs. Type 2 anna betes mellitus 30554941 E11.9 Z79.4 49775391 Last HgA1C was 7.5 in 12/2024.Sug ars in good control since here, not being ported into vitals spreadshee t, but visible in JAN.Contin ue metformin 500 mg BID (consider d/c or decrease), Lantus 12U qd, and SSI.Monito r fingerstic ks TID and HgA1C q 3 months. Chronic ki dney disease stage 3A 349219763 N18.31 7581284161 At baseline.C ontinue to avoid nephrotoxi c meds as able.Consi berto stopping metformin. Monitor labs.Renal consult prn. Hyperlipidemia 43068731 E78.49 1327385 Continue pravastati n 20 mg qd.Monitor labs as outpt. Gastroesop hageal reflux disease without esophagitis 327052467 K21.9 496356 No current sxs.Contin ue omeprazole 20 mg qd.Monitor for GI sxs. Anemia of chronic disease 677910941 D63.8 8253504 Stable at baseline.I svitlana was sl. low when checked in ontin ue FeSO4 325 mg qd.Monitor labs. [id number] SHARMAINE CARVAJAL [address] [place] [address] 03/27/2025 09:00:18 03/29/2025 10:39:26 Closed fracture of pubic ramus 5089602405 S32.591D 29865636 Mobility much improved, but pain not really getting better yet.Contin ue lidocaine patchesAPA P 650 mg q 6 hrs prnd/c oxycodone q 6 hrs prn.Very deconditio robert.Contin ue with PT/OT for strengthen ing, balance, gait training, safety and function.C ontinue fall precaution s.Monitor for safety.F/U with ortho as planned. Paroxysmal atrial fibrillation 783475761 I48.0 61152 Without recent evidence of Afib, has been in NSR on recent assessment s.Continue amiodarone 200 mg qdContinue eliquis 5 mg BID for AC.Monitor HR and bleeding risk. Essential hypertension 14514231 I10 50110 With some borderline SBPs, but DBPs all low.Contin ue losartan 50 mg qd and amlodipine 10 mg qdMonitor BP and labs Chronic dney disease stage 3A 720656950 N18.31 9835380456 At baseline.C ontinue to avoid nephrotoxi c meds as able.Consi berto stopping metformin. Monitor labs.Renal consult prn. Type 2 anna betes mellitus 08139510 E11.9 Z79.4 23702149 Last HgA1C was 7.5 in 12/2024.Sug ars in good control since here, not being ported into vitals spreadshee t, but visible in JAN.Contin ue metformin 500 mg BID (consider d/c or decrease), Lantus 12U qd, and SSI.Monito r fingerstic ks TID and HgA1C q 3 months. Recurrent urinary tract infection N39.0 072895 Hx of frequent UTIs.Compl eted abx on 03/21.Monito r for recurrent sxs. Hyperlipidemia 26600437 E78.49 2301751 Continue pravastati n 20 mg qd.Monitor labs as outpt. Gastroesop hageal reflux disease without esophagitis 534834211 K21.9 843155 No current sxs.Contin ue omeprazole 20 mg qd.Monitor for GI sxs. Anemia of chronic disease 527663688 D63.8 7614987 Stable at baseline.I svitlana was sl. low when checked in ontin ue FeSO4 325 mg qd.Monitor labs. [id number] SHARMAINE LORD HOLLAND CARVAJAL [address] [place] [address] 04/05/2025 09:54:00 04/06/2025 14:44:14 Closed fracture of pubic ramus 3482853761 S32.591D 15810637 much improvedAP AP 650 mg q 6 hrs prnVNA to continue PT outpt Paroxysmal atrial fibrillation 926164273 I48.0 07576 Without recent evidence of Afib, has been in NSR on recent assessment s.Continue amiodarone 200 mg qdContinue eliquis 5 mg BID for AC. Essential hypertension 87720267 I10 67440 Continue losartan 50 mg qd and amlodipine 10 mg qd Chronic ki dney disease stage 3A 604231767 N18.31 1689673834 At baseline.C ontinue to avoid nephrotoxi c meds as able.Renal consult prn. Type 2 anna betes mellitus 95431576 E11.9 Z79.4 11921389 Last HgA1C was 7.5 in 12/2024.Sug ars in good control since hereContin ue metformin 500 mg BID (consider d/c or decrease), Lantus 12U qd, and SSI.Monito r fingerstic ks TID and HgA1C q 3 months. Hyperlipidemia 87953338 E78.49 7912786 Continue pravastati n 20 mg qd.Monitor labs as outpt. Gastroesop hageal reflux disease without esophagitis 710133797 K21.9 589535 No current sxs.Contin ue omeprazole 20 mg qd. Anemia of chronic disease 449535571 D63.8 0592026 Stable at baseline.I svitlana was sl. low [...] Name 04/05/2025 2 [place] [id number] Gayle Rainey [id number] Gayle Rainey 03/21/2025 1 [place] [employer] Gayle Jaimee Brigid [id number] Gayle Rainey Notes Date Note Type [...] she was discharged to complete [facility]. SHARMAINE [address], [address], [place], [address], [facility] 03/16/2025 10:28:26 03/22/2025 text/html This is an [...] also said mom has an appointment at [address] [place] [address] in [place] for 04-03-25 and daughter will make transport arrangements for this visit. She is moving about the unit in her WC, tells me she is doing great and everyone has been wonderful to her. No new concerns from patient or staff. SHARMAINE JEAN BAPTISTE [address] [place] [address], [address], [place], [address], [facility] 03/22/2025 09:52:05 03/23/2025 text/html This is an 85 yo woman who is here for rehab after an ED visit and then acute rehab at [facility] for a right superior pubic ramus fx after a mechanical fall. She presented to the [facility] ED on 03/05 after tripping over [...] and pain management, non-srurgical.She was transferred to [facility] for acute rehab.She continued to be unable to ambulate due to pain and needed mod assist for transfers and bed mobility, so decision for subacute rehab and transferred here on 03/15. While at [facility] she was found to have a [...] and recurrent UTIs. Dalia Matthew MD [address] [facility], [address], [place], [address], [employer] [facility] 03/23/2025 16:14:39 03/27/2025 text/html This is an 85 yo woman who is here for rehab after an ED visit and then acute rehab at [facility] for a right superior pubic ramus fx after a mechanical fall. Patient is pleasant and comfortable. Reports pain controlled with acetaminophen 650 mg. Patient reports no longer wanting oxycodone. SHARMAINE JEAN BAPTISTE [address], [address], [place], [address], [employer] 03/27/2025 09:44:04 04/05/2025 text/html This is an 85 yo woman who is here for rehab after an ED visit and then acute rehab at [facility] for a right superior pubic ramus fx after a mechanical fall. Patients stay has been uneventful and she is doing well. She will DC home tomorrow with meds and services in place including VNA due to home bound status. No other concerns at this visit, ok to DC. SHARMAINE JEAN BAPTISTE [address] [facility], [address], [place], [address], [employer] 04/05/2025 10:08:11 OBGyn Episode No OBEpisode recorded.
--- OUTSIDE RECORDS SUMMARY | 2025-10-06 01:50 | XMS_ITS | Encounter Summary ---
Author Organization [facility] Address [address] [place] [address] Care Team Providers Care Telecommunicator Name Role Phone Christie Mendez Primary Care Provider [phone] Encounter Details Date Type Department Care Team (Late st Contact Info) Description 10/02/[address] [facility] - Main Lab [address] [place] [address] Chichi Marshall PA [address] [place] [address] Encounter for other general examination Social History [...] Associated Diagnosis Comments BASIC METABOLIC PANEL Routine 10/02/2025 6:34 AM EST Encounter for other general examination documented in this encounter Results * (ABNORMAL) Basic metabolic panel (10/02/2025 6:34 AM EST) Sodium 138 133 - 145 mmol/L LAB CHEMISTRY METHOD 10/02/2025 12:39 PM [facility] Potassium 5.2 3.5 - 5.5 mmol/L LAB CHEMISTRY METHOD 10/02/2025 12:39 PM [facility] Chloride 110 96 - 110 mmol/L LAB CHEMISTRY METHOD 10/02/2025 12:39 PM [facility] CO2 19(L) 21 - 32 mmol/L LAB CHEMISTRY METHOD 10/02/2025 12:39 PM [facility] Anion Gap 9 3 - 11 LAB CHEMISTRY METHOD 10/02/2025 12:39 PM [facility] Glucose 105(H) 70 - 100 mg/dL LAB CHEMISTRY METHOD 10/02/2025 12:39 PM [facility] BUN 28(H) 5 - 25 mg/dL LAB CHEMISTRY METHOD 10/02/2025 12:39 PM [facility] Creatinine 1.43(H) 0.50 - 1.10 mg/dL LAB CHEMISTRY METHOD 10/02/2025 12:39 PM EST [facility] eGFR 36(L) >=60 mL/min/1. 73m2 LAB CHEMISTRY METHOD 10/02/2025 12:39 PM EST [facility] Comment:Calculation based on the Chronic Kidney Disease Epidemiology Collaboration (CKD-EPI) equation refit without adjustment for race. BUN/Creatinine Ratio 19.6 LAB CHEMISTRY METHOD 10/02/2025 12:39 PM EST [facility] Calcium 8.8 8.5 - 10.5 mg/dL LAB CHEMISTRY METHOD 10/02/2025 12:39 PM EST [facility] Blood Venous blood specimen / Unknown Venipuncture / Unknown 10/02/2025 6:34 AM EST 10/02/2025 10:19 AM EST us Chichi ESTES LAB BLOOD ORDERABLES Final Resu lt [facility] [address] [place] [address], documented in this encounter Visit Diagnoses Diagnosis Encounter for other general examination documented in this encounter Additional Health Concerns Assessment Noted Time PHQ-9 Depression Total Score: 0 03/14/20 3:22 PM EDT documented as of this encounter Care Teams Telecommunicator Relationship Specialty Start Date End Date Christie Mendez PA [address] [place] [address] PCP - General 03/05/25 documented as of this encounter
[2025-10-06 01:52] LABS: Anion Gap 14 (12-20); Blood Urea Nitrogen 19 mg/dL (9-16); Calcium 9.4 mg/dL (8.4-10.2); Carbon Dioxide 18 mmol/L (22-29); Chloride 112 mmol/L (96-108); Creatinine Clr Calc Pharmacy 34.5; Estimated Glomerular Filt Rate 46; Potassium 5.4 mmol/L (3.3-5.1); Sodium 139 mmol/L (135-145)
[2025-10-06 01:59] LABS: Troponin-I High Sensitivity < 2.7 ng/L (<3.5-17.0)
[2025-10-06 02:04] LABS: INTERNATIONAL NORM RATIO 1.7 (0.9-1.1); Prothrombin Time 20.1 SEC (11.2-13.5)
[2025-10-06 02:22] LABS: Hematocrit 36.6 % (37.0-47.0); Hemoglobin 11.4 g/dl (12.0-16.0); Imm Gran Abs Auto 0.15 X10*3/uL (0.00-0.03); Imm Gran Pct Auto 1.5 % (0.0-0.4); Lymphocytes Absolute Auto 1.1 X10*3/uL (1.2-4.9); Mean Corpuscular HGB Conc 31.1 g/dl (31.0-35.0); Mean Corpuscular Hemoglobin 31.5 pg (27.0-33.0); Mean Corpuscular Volume 101.1 fL (80.0-98.0); NRBC Abs Auto 0.000 X10*3/uL (0.0-0.012); NRBC Pct Auto 0.0 /100WBC (0.0-0.2); Platelet Count 295 X10*3/uL (160-400); Red Blood Count 3.62 X10*6/uL (4.20-5.50); White Blood Count 9.7 X10*3/uL (4.8-10.8)
--- NOTE | 2025-10-06 03:41 | ED.SOB ---
HPI - SOB/Dyspnea General Chief Complaint: Dyspnea Stated Complaint: difficulty breathing Time Seen by Provider: 10/06/25 02:32 Source: patient and EMS Mode of arrival: EMS Limitations: no limitations History of Present Illness ED Provider: Dr. Calista Carmona HPI Narrative: Patient comes to the emergency room via ambulance. According to the patient, she was recently discharged from rehab and sent home. Patient states that she lives with family. Patient has been complaining of shortness of breath. The reason that patient was in rehab is at about a month ago she had a fall and broke several ribs. Patient denies any recent coughing, denies fever or chills. denies chest pain. according to EMS, patient's oxygen saturation was 85% on room air. Patient denies any recent falls, other than the 1 from a month ago Related Data Home Medications ?Medication ?Instructions ?Recorded ?Confirmed amlodipine 10 mg tablet 10 mg PO BEDTIME 06/26/24 06/12/25 ferrous sulfate 325 mg (65 mg 325 mg PO BID 06/26/24 06/12/25 iron) tablet (FeroSul) insulin glargine 100 unit/mL (3 14 unit subcut BEDTIME 06/26/24 06/12/25 mL) subcutaneous pen (Lantus Solostar U-100 Insulin) metformin 500 mg tablet 500 mg PO BID 06/26/24 06/12/25 omeprazole 20 mg capsule,delayed 20 mg PO DAILY@0630 06/26/24 06/12/25 release olmesartan 40 mg tablet 40 mg PO DAILY 06/12/25 06/12/25 pravastatin 20 mg tablet 20 mg PO BEDTIME 06/12/25 06/12/25 Previous Rx's ?Medication ?Instructions ?Recorded amiodarone 200 mg tablet 200 mg PO DAILY #90 tabs 12/16/24 apixaban 5 mg tablet (Eliquis) 5 mg PO BID #180 tabs 07/25/25 Allergies Allergy/AdvReac Type Severity Reaction Status Date / Time No Known Allergies Allergy Verified 10/06/25 01:14 Review of Systems Review of Systems: Constitutional : No Weight loss, No Fever, No Chills, No Night Sweats, No Fatigue, No Malaise ENT/Mouth : No Hearing loss, No Ear Pain, No Nasal Congestion, No Sinus Pain, No Hoarseness, No sore throat, No Rhinorrhea, No Swallowing Difficulty Eyes: No Eye Pain, No Swelling, No Redness, No Foreign Body, No Discharge, No Vision Changes Cardiovascular : No Chest Pain, Rapp palpitations complaining of complaining of orthopnea, worsening lower extremity edema Respiratory : No Cough, No Sputum, No Wheezing, No Smoke Exposure, complaining of shortness of breath at rest and with exertion Gastrointestinal : No Nausea, No Vomiting, No Diarrhea, No Constipation, No abdominal Pain, No Hematochezia, No Melena Genitourinary : no irregular bleeding, No Dysuria, No Urinary Frequency, No Hematuria, No Urinary Incontinence, No Urgency, No Flank Pain, No Urinary Flow Changes, No Hesitancy Musculoskeletal : No joint pain, No Myalgias, No Joint Swelling Skin : No Skin Lesions, No rash Neuro : No Weakness, No Numbness, No Paresthesias, No Loss of Consciousness, No Dizziness, No Headache Psych : No Anxiety/Panic, No Depression, No SI/HI/AH/VH, No Social Issues, Heme/Lymph: No Bruising, No Bleeding,No Lymphadenopathy Endocrine : No Polyuria, No Polydipsia, No Temperature Intolerance [facility] Past Medical History Medical History Congestive heart failure Hiatal hernia HTN (hypertension) Diabetes Surgical History H/O: hysterectomy Family History Family History Father Heart attack Mother Heart attack Social History Social History Alcohol intake: never Patient Tobacco Use Status: Never used Tobacco Smoked in Last 30 Days: No Advance Directives: Yes Advance Directives on File: Yes Advance Directives Date on File: 09/10/25 service: No Physical Exam Exam: Exam: Appearance: Alert. Oriented X3. patient is winded Eyes: Pupils equal, round and reactive to light. ENT: Pharynx normal. Neck: Normal inspection. Neck supple. No lymph nodes noted. No crepitus CVS: Normal heart rate and rhythm. Pulses normal. Normal S1 and S2 Respiratory: No respiratory distress. Breath sounds normal. No Wheezing. No rales Abdomen: Soft and nontender. No rigidity. No distention. Skin: Skin warm and dry. Normal skin color. Normal skin turgor. Extremities: No lower extremity edema. No Lacerations. No Rash Neuro: Oriented X 3. No motor deficit. No sensory deficit. Moving all extremities. No slurred speech. CN 2 through 12 grossly intact Psych: calm, cooperative, normal affect Vital Signs: Vital Signs: Last Vital Signs Temp 97.9 F 10/06/25 01:17 Pulse 65 10/06/25 03:52 Resp 20 10/06/25 03:52 BP 156/62 H 10/06/25 03:52 Pulse Ox 95 10/06/25 03:52 O2 Del Method Nasal Cannula 10/06/25 03:52 O2 Flow Rate 3 10/06/25 03:52 BMI result Body Mass Index 25.8 Course Course Course Narrative: he denies any recent URI symptoms other than sudden onset of shortness of breath a few hours ago. Denies fever chills, denies cough. All of patient's labs and imaging pending Medical Decision Making Medical Decision Making MDM Narrative: My interpretation of EKG: Normal sinus rhythm, first-degree AV block, heart rate 70, no ST segment depression or elevation, no T-wave inversion or peaked T-waves, QTC 479 my interpretation of labs: Patient's white blood cell count within normal limits, hemoglobin hematocrit and platelets are at baseline. Patient's pH is slightly decreased at 7.3, normal pCO2, bicarb slightly decreased at 21. Patient's labs show a potassium of 5.4, no peaked T-waves on EKG. troponin negative his x-ray shows small bilateral pleural effusions with atelectasis versus consolidation in the right lung. CT scan shows an airspace consolidation in the right lower lobe, right middle lobe and left lower lobe. Possible atelectasis, underlying multilobar pneumonia not excluded, there is a small right pleural effusion. Patient does not have fever, patient's white blood cell count within normal limits, no episodes of hypotension since patient was just discharged from a rehab, patient being given vanco and Zosyn, being treated for pneumonia. Sepsis is not suspected serology for influenza, RSV, COVID is pending patient is on 2 L of oxygen, saturating in the mid 90s. Without oxygen And minimal movement, the patient quickly desaturates to the mid 80s. Differential Diagnosis Differential Diagnoses: The differential diagnosis associated with the presentation includes ( influenza, COVID, RSV, bronchitis, pleural effusion, CHF) Admission/Observation Consideration of admission/observation: Escalation of care including admission/observation considered ( patient needs inpatient level of care, requiring oxygen) Consult Healthcare Provider Management of the patient was discussed with: Hospitalist Lab Data MDM Lab Attestation statement: I reviewed the patient's lab results. 10/06/25 01:25 10/06/25 01:25 Labs: Lab Results 10/06/25 10/06/25 Range/Units 01:25 01:35 WBC 9.7 (4.8-10.8) X10*3/uL RBC 3.62 L (4.20-5.50) X10*6/uL Hgb 11.4 L (12.0-16.0) g/dl Hct 36.6 L (37.0-47.0) % MCV 101.1 H (80.0-98.0) fL MCH 31.5 (27.0-33.0) pg MCHC 31.1 (31.0-35.0) g/dl RDW 15.4 (11.0-16.0) % Plt Count 295 (160-400) X10*3/uL MPV 11.6 (9.4-12.3) fL Immature Gran % (Auto) 1.5 H (0.0-0.4) % Neut % (Auto) 77.3 H (45-73) % Lymph % (Auto) 10.9 L (20-40) % [place] % (Auto) 7.8 (2-11) % Eos % (Auto) 1.8 (0-4) % Baso % (Auto) 0.7 (0-2) % Lymph # (Auto) 1.1 L (1.2-4.9) X10*3/uL [place] # (Auto) 0.8 (0.1-1.2) X10*3/uL Eos # (Auto) 0.2 (0.0-0.4) X10*3/uL Baso # (Auto) 0.1 (0.0-0.2) X10*3/uL Abs Immat Gran (auto) 0.15 H (0.00-0.03) X10*3/uL Absolute Neuts (auto) 7.5 (2.0-8.3) x10*3/uL Absolute Nucleated RBC 0.000 (0.0-0.012) X10*3/uL Nucleated RBC % (auto) 0.0 (0.0-0.2) /100WBC PT 20.1 H (11.2-13.5) SEC INR 1.7 H (0.9-1.1) VBG pH 7.30 L (7.32-7.43) VBG pCO2 42 mmHg VBG pO2 52 mmHg VBG HCO3 21 L (22-26) mmol/L VBG O2 Saturation 77.0 % VBG Base Excess -5.0 mmol/L Sodium 139 (135-145) mmol/L Potassium 5.4 H (3.3-5.1) mmol/L Chloride 112 H (96-108) mmol/L Carbon Dioxide 18 L (22-29) mmol/L Anion Gap 14 (12-20) BUN 19 H (9-16) mg/dL Creatinine 1.13 (0.5-1.4) mg/dL Estim Creat Clear Calc 34.5 Estimated GFR 46 Random Glucose 172 H (60-115) mg/dL Calcium 9.4 (8.4-10.2) mg/dL Troponin I High Sens < 2.7 (<3.5-17.0) ng/L Independent Interpretation I performed an independent interpretation of an: EKG, Plain X-Ray and CT Scan Radiology Impression Discussion of test interpretation with radiology: I have reviewed the radiologist's reading. Radiologist Impression: There may be small bilateral pleural effusions. Ill-defined opacity at the right lung base. Heart size is normal. Osteopenia. No fracture. IMPRESSION: Suspected small bilateral pleural effusions and either atelectasis or consolidation at the right lung base. Recommend follow-up to clearing. Independent Historian Clinical information obtained from an independent historian. History obtained from or confirmed by: EMS Critical Care Time Critical Care Time Critical Care Time: Yes Total Critical Care Time: 60 Attestation: I have personally provided critical care time. Time includes review of lab data, radiology results, discussion with consultants, and monitoring for potential decompensation. Intervention performed as documented. Discharge Plan Discharge Clinical Impression: Pleural effusion, Pneumonia Patient Disposition: Admitted As Inpatient Print Language: Ugandan
[2025-10-06 04:38] LABS: Resp Syncy Virus RNA Qual PCR NEGATIVE (Negative); SARS COV2 PCR INHOUSE NEGATIVE (Negative)
--- NOTE | 2025-10-06 05:14 | P.HPHOSP_ITS ---
History of Present Illness Date of Service: 10/06/25 Attending physician on admission: Nhan Marie Chief Complaint: SOB, hypoxia pt is an 85 yo f with a pmhx significant for T2DM, paroxysmal a fib on eliqius, HTN, GERD, MV stenosis, emphysema, and HFpEF. who presented to the ED due to hypoxia and SOB. pt was recently d/c'd from SNF after a fall with rib fx's. she denies any chest pain, cough, fever, chills, nausea or vomiting. when EMS arrived pt's o2 was 85% ORA. she notes some increased SOB since arriving. she also notes she has been having difficulties with swallowing but denies coughing or choking with eating. imaging in ED consistent with multiloba pneumonia ?aspiration with bilateral pleural effusions. Review of Systems 2 Constitutional: Constitutional: Denies body ache(s), Denies chills, Denies fatigue, Denies fever(s) and Denies headache(s) Eyes: Eyes: Denies change in vision ENT: Denies headache(s), Denies nasal discharge and Denies sore throat Cardiovascular: Cardiovascular: Denies chest pain, Denies rapid heart rate, Denies leg edema, Denies lightheadedness and Reports dyspnea Respiratory: Respiratory: Denies chest congestion, Denies cough, Reports dyspnea and Denies wheezing Gastrointestinal: Gastrointestinal: Denies abdominal pain, Denies diarrhea, Denies nausea and Denies vomiting Genitourinary: Genitourinary: Denies difficulty voiding, Denies dysuria and Denies urinary urgency Musculoskeletal: Musculoskeletal: Denies myalgias Integumentary/Breasts: Skin/Breast: Denies rash Neurologic: Denies confusion and Denies headache(s) Psychiatric: Psychiatric: Denies confusion Endocrine: Endocrine: Denies fatigue Hematologic/Lymphatic: Hematologic/Lymphatic: Denies easy bleeding Allergic/Immunologic: Allergic/Immunologic: Denies wheezing [facility] Medical History Congestive heart failure Hiatal hernia HTN (hypertension) Diabetes Family History Father Heart attack Mother Heart attack Surgical History H/O: hysterectomy Social History Alcohol intake: never Patient Tobacco Use Status: Never used Tobacco Smoked in Last 30 Days: No Advance Directives: Yes Advance Directives on File: Yes Advance Directives Date on File: 09/10/25 service: No Meds Allergies Allergy/AdvReac Type Severity Reaction Status Date / Time No Known Allergies Allergy Verified 10/06/25 01:14 Active Medications: Current Medications Acetaminophen (Acetaminophen 325 Mg Tablet) 650 mg PO Q6H PRN PRN Reason: Pain, Mild 1-3,fever,headache Calcium Carbonate (Calcium Carbonate 750 Mg Tab.Chew) 750 mg PO Q4H PRN PRN Reason: Heartburn Dextrose (Dextrose 50 % 25 Gm/50 Ml Syringe) 25 gm IVPUSH Q15M PRN; Protocol PRN Reason: per Hypoglycemia Standing Ord. Glucose (Glucose Gel 15 Gm Gel..Gram.) 15 gm PO Q15M PRN; Protocol PRN Reason: per Hypoglycemia Standing Ord. Sodium Chloride (Ns) 1,000 mls @ 999 mls/hr IVCONT .Q1H1M ONE Stop: 10/06/25 05:27 Last Admin: 10/06/25 04:36 Dose: 999 mls/hr Vancomycin HCl 1,000 mg/Vancomycin HCl 750 mg/ Sodium Chloride 535 mls @ 267.5 mls/hr IV ONCE ONE Stop: 10/06/25 06:26 Piperacillin Sod/Tazobactam (Sod 3.375 gm/ Sodium Chloride) 50 mls @ 100 mls/hr IV Q6H [place] Sodium Chloride (Sodium Chloride 0.45 %) 1,000 mls @ 80 mls/hr IVCONT .[id number] [facility] Insulin Human Lispro (Insulin Lispro 100 Unit/Ml 3 Ml Vial) 0 unit SUBCUT QIDACHS [facility]; Protocol Magnesium Hydroxide (Milk Of Magnesia 30 Ml Oral.Susp) 30 ml PO DAILY PRN PRN Reason: Constipation Melatonin (Melatonin 3 Mg Tablet) 6 mg PO BEDTIME PRN PRN Reason: Insomnia Ondansetron HCl (Ondansetron Hcl 4 Mg/2 Ml Vial) 4 mg IVPUSH Q8H PRN PRN Reason: Nausea and Vomiting Oxycodone HCl (Oxycodone Hcl Immed Release 5 Mg Tablet) 5 mg PO Q6H PRN PRN Reason: Pain, Severe (Pain Scale 7-10) Pharmacy Consult (Consult Rx Vancomycin Dosing) 1 each MISCELLANE DAILY PRN PRN Reason: Consult order Sodium Chloride (0.9 % Sodium Chloride Flush 3 Ml Syringe) 3 ml IVFLUSH QSHIFT [facility] Tramadol HCl (Tramadol Hcl 50 Mg Tablet) 50 mg PO Q6H PRN PRN Reason: Pain, Moderate(Pain Scale 4-6) Home Medications ?Medication ?Instructions ?Recorded ?Confirmed ?Last Taken ?Type amlodipine 10 mg tablet 10 mg PO BEDTIME 06/26/2406/25/24 History ferrous sulfate 325 mg (65 mg 325 mg PO BID 06/26/24 0 06/12/25 06/25/24 History iron) tablet (FeroSul) insulin glargine 100 unit/mL (3 14 unit subcut BEDTIME 06/26/24 06/12/25 06/25/24 History mL) subcutaneous pen (Lantus Solostar U-100 Insulin) metformin 500 mg tablet 500 mg PO BID 06/26/2406/1206/25/24 History omeprazole 20 mg capsule,delayed 20 mg PO DAILY@0630 0 06/26/24 06/12/25 06/25/24 History release olmesartan 40 mg tablet 40 mg PO DAILY 06/12/2505/17 Unknown History pravastatin 20 mg tablet 20 mg PO BEDTIME 06/12/25 Unknown History Physical Exam 2 Vital Signs and Narrative: Vital Signs: Last Vital Signs Temp 97.9 F 10/06/25 01:17 Pulse 65 10/06/25 03:52 Resp 20 10/06/25 03:52 BP 156/62 H 10/06/25 03:52 Pulse Ox 95 10/06/25 03:52 O2 Del Method Nasal Cannula 10/06/25 03:52 O2 Flow Rate 3 10/06/25 03:52 BMI result Body Mass Index 25.8 General: AOx3, sitting upright, conversation dyspnea Resp: diminished throughout, no wheezing CVS: S1, S2, RRR GI: +BS, NT, no distention Skin: Warm, dry Neuro: Cranial nerves II-XII grossly intact bilaterally. Motor grossly intact bilaterally Extremities: 1+ pitting edema Psych: Appropriate affect Const: General: No confusion Orientation/consciousness: No confusion Neuro: General: No confusion Results Labs 10/06/25 01:25 10/06/25 01:25 Labs: Laboratory Results - last 24 hr 10/06/25 10/06/25 10/06/25 01:25 01:35 03:58 MCV 101.1 H MCH 31.5 MCHC 31.1 RDW 15.4 Plt Count 295 MPV 11.6 Immature Gran % (Auto) 1.5 H Neut % (Auto) 77.3 H Lymph % (Auto) 10.9 L [place] % (Auto) 7.8 Eos % (Auto) 1.8 Baso % (Auto) 0.7 Lymph # (Auto) 1.1 L [place] # (Auto) 0.8 Eos # (Auto) 0.2 Baso # (Auto) 0.1 Abs Immat Gran (auto) 0.15 H Absolute Neuts (auto) 7.5 Absolute Nucleated RBC 0.000 Nucleated RBC % (auto) 0.0 PT 20.1 H INR 1.7 H VBG pH 7.30 L VBG pCO2 42 VBG pO2 52 VBG HCO3 21 L VBG O2 Saturation 77.0 VBG Base Excess -5.0 Anion Gap 14 Estim Creat Clear Calc 34.5 Estimated GFR 46 Random Glucose 172 H Lactic Acid Calcium 9.4 Troponin I High Sens < 2.7 Influenza Type A (PCR) NEGATIVE Influenza Type B (PCR) NEGATIVE RSV RNA Qual (PCR) NEGATIVE SARS-CoV-2 RNA (RT-PCR) NEGATIVE 10/06/25 04:36 MCV MCH MCHC RDW Plt Count MPV Immature Gran % (Auto) Neut % (Auto) Lymph % (Auto) [place] % (Auto) Eos % (Auto) Baso % (Auto) Lymph # (Auto) [place] # (Auto) Eos # (Auto) Baso # (Auto) Abs Immat Gran (auto) Absolute Neuts (auto) Absolute Nucleated RBC Nucleated RBC % (auto) PT INR VBG pH VBG pCO2 VBG pO2 VBG HCO3 VBG O2 Saturation VBG Base Excess Anion Gap Estim Creat Clear Calc Estimated GFR Random Glucose Lactic Acid 0.6 Calcium Troponin I High Sens Influenza Type A (PCR) Influenza Type B (PCR) RSV RNA Qual (PCR) SARS-CoV-2 RNA (RT-PCR) Assessment and Plan (1) Acute respiratory failure with hypoxia: Status: Acute (2) Pneumonia: Status: Acute (3) Pleural effusion: Status: Acute Plan pt is an 85 yo f with a pmhx significant for T2DM, paroxysmal a fib on eliqius, HTN, GERD, MV stenosis, emphysema, and HFpEF. who presented to the ED due to hypoxia and SOB. acute hypoxic respiratory failure secondary to pneumonia ?aspiration with bilateral pleural effusions on imaging - vancomycin and zosyn due to recent rehab stay - aspiration precautions - NPO pending speech eval - titrate O2 PRN - stat VBG and BNP - monitor CBC and BMP HFpEF, acute exacerbation - check stat BNP, 1+ pitting edema and worsening SOB - trial of lasix 20mg IV x1 - echo - tele - continue home meds acute metabolic acidosis with hyperchloremia and pseudohyperkalemia (hemolysis) - avoid further IVF due to risk to fluid overload - monitor BMP T2DM - SSI - diabetic diet - lantus to be resumed once bed rec done paroxysmal a fib - eliquis - continue amiodarone HTN - continue amlodipine, hold omlesartan GERD - continue home meds chronic emphysema, no acute exacerbation - continue home meds med rec pending DNR/DNI VTE prophy: eliquis Pt with acute hypoxic respiratory failure likely secondary to aspiration pneumonia, requiring admission for at least 2 midnights stay for IV abx and further evaluation. Quality Stroke Does the patient have a stroke diagnosis?: No VTE Prior VTE?: No VTE Risk Level:: Medical - moderate - high VTE Device Contraindication: Treatment Not Indicated VTE Drug Contraindication: N/A - Med Ordered
[2025-10-06] MEDS: vancomycin HCL 1,000 MG, vancomycin HCL 750 MG in 0.9 % Sodium Chloride 500 ML 267.5 MG IV (05:34)
--- NOTE | 2025-10-06 05:39 | PC.NURSE ---
Pt reporting increased SOB at this time, O2 92% 3L, hospitalist notified and verbal order to hold maintenance fluids given
--- NOTE | 2025-10-06 05:56 | HO.NURTONUR ---
Pt is 85 female from home where she resides with daughter. developed increased SOB. Upon EMS arrival O2 was 85%.Patient placed on 3L on arrival recent discharge from rehab after hospitalization. CXR showed small pleural effusions. CT chest showed small right pleural effusion, mild vascular congestion, PNA possible aspiration. 20g RAC. NPO until swallow eval. 0530 pt reporting increased SOB after 1L NS, O2 92% 3L, hospitalist notified and additional blood work ordered, verbal order to hold maintenance fluids
[2025-10-06 06:24] LABS: Venous Blood Gas Refer to POC result
[2025-10-06 06:26] LABS: VBG HCO3 21 mmol/L (22-26); VBG O2 % Saturation 72.0 %
[2025-10-06 06:29] LABS: MANUAL DIFF FLAG NO
[2025-10-06 06:30] LABS: Hematocrit 33.9 % (37.0-47.0); Hemoglobin 10.6 g/dl (12.0-16.0); Imm Gran Abs Auto 0.16 X10*3/uL (0.00-0.03); Imm Gran Pct Auto 1.6 % (0.0-0.4); Lymphocytes Absolute Auto 1.2 X10*3/uL (1.2-4.9); Mean Corpuscular HGB Conc 31.3 g/dl (31.0-35.0); Mean Corpuscular Hemoglobin 31.8 pg (27.0-33.0); Mean Corpuscular Volume 101.8 fL (80.0-98.0); NRBC Abs Auto 0.000 X10*3/uL (0.0-0.012); NRBC Pct Auto 0.0 /100WBC (0.0-0.2); Platelet Count 270 X10*3/uL (160-400); Red Blood Count 3.33 X10*6/uL (4.20-5.50); White Blood Count 10.3 X10*3/uL (4.8-10.8)
[2025-10-06] MEDS: Furosemide 20 MG/2 ML VIAL IVPUSH ×2 (06:53→18:19)
[2025-10-06 07:00] LABS: Anion Gap 12 (12-20); Blood Urea Nitrogen 17 mg/dL (9-16); Calcium 8.8 mg/dL (8.4-10.2); Carbon Dioxide 21 mmol/L (22-29); Chloride 113 mmol/L (96-108); Creatinine Clr Calc Pharmacy 39.0; Estimated Glomerular Filt Rate 53; Potassium 4.5 mmol/L (3.3-5.1); Sodium 141 mmol/L (135-145)
--- NOTE | 2025-10-06 07:00 | CA_ITS ---
Transthoracic Echocardiogram Patient (Last, First, Middle): Gayle Rainey G Gender: F Date of : 1940 Age: 85 Procedure Date: 10/06/2025 Procedure Type: Transthoracic Echocardiogram Location: S3E Height: 160.02 cm Weight: 63.05 kg BSA: 1.66 m2 Heart Rate: 63 bpm BP: 130 / 65 mmHg Equipment Engineer: Referring MD: Cristel Pulido PA-C Symptoms: CHF Study Quality: Fair ECG Rhythm: Sinus Conclusions: - The left ventricular systolic function is hyperdynamic. The calculated ejection fraction is 71% by biplane method. - There is severe mitral annular calcification. There is moderate to severe mitral valve stenosis. Findings Left Ventricle Normal left ventricular cavity size. There is moderately increased left ventricular wall thickness. The left ventricular systolic function is hyperdynamic. The calculated ejection fraction is 71% by biplane method. There is no evidence of regional wall motion abnormalities. Right Ventricle Normal right ventricular cavity size. There is mildly decreased right ventricular systolic function. Atria The left atrium is moderately dilated. The right atrium is normal in size. Aortic Valve There is a normal trileaflet aortic valve. There is mild calcification of the aortic valve. There is no aortic valve stenosis. Mitral Valve There is severe mitral annular calcification. There is trace mitral valve regurgitation. There is moderate to severe mitral valve stenosis. Mean gradient across the mitral valve 8 mm Hg at 64/Min. Elevated gradients can also be related to increased stroke volume. Pulmonic Valve The pulmonic valve is likely normal. Tricuspid Valve Normal tricuspid valve structure. There is mild tricuspid valve regurgitation. There is no evidence of pulmonary hypertension. Great Vessels The asc aorta is normal in size. Venous The inferior vena cava is normal in size and collapses less than 50% with inspiration. Pericardium/Pleural There is no evidence of pericardial effusion. Prior Study Comparison No significant change compared to prior study dated: 06/27/2024. Measurements 2D Linear Measurements IVSd: 1.32 0.6-0.9/0.6-1.0 cm LVIDd: 3.67 3.9-5.3/4.2-5.9 cm LVIDd Index: 2.21 2.4-3.2/2.2-3.1 cm/m2 LVIDs: 2.16 2.0-3.6 cm LVPWd: 1.36 0.7-1.1 cm LA Diam: 4.70 2.7-3.8/3.0-4.0 cm LAIDs Index: 2.83 1.5-2.3 cm/m2 LV Mass: 214.88 67-162/88-224 g LV Mass Index: 129.45 43-95/49-115 g/m2 LVOT Diam: 1.90 3.0+(-)1.3 cm 2D Systolic Function EF 4C: 72.20 >55% EF 2C: 70.10 >55% EF BiP: 70.70 >55% Mitral Valve MV VTI: 0.65 MV Pk David: 1.91 MV Mn David: 1.22 MV Pk Grad: 15.00 MV Mn Grad: 7.00 MV Pk E: 2.12 MV PK A: 1.79 MV Decel Time: 302.00 E/A: 1.20 E'Lateral: 6.42 E'Medial: 5.33 E/E' Med: 39.80 E/E' Lat: 33.00 PHT: 88.00 MVA PHT: 2.50 MVA Continuity: 1.22 Decel O'Brien: 7.02 Aortic Valve AoV Pk David: 1.38 AoV Mn David: 0.91 AoV VTI: 0.39 AoV Pk Grad: 8.00 Aov Mn Grad: 4.00 ROS Cont.VTI: 2.00 LVOT LVOT Pk David: 1.00 LVOT Mn David: 0.73 LVOT VTI: 0.28 LVOT Pk Grad: 4.00 LVOT Mn Grad: 3.00 LVOT Diam: 1.90 LVOT Area: 2.84 Diastolic Function MV Pk E: 2.12 MV Pk A: 1.79 E/A: 1.20 E'Medial: 5.33 E/E' Med: 39.80 E' Laterial: 6.42 E/E' Lat: 33.00 Right Ventricle TAPSE (mm): 25.30 TVS' David: 9.68 Tricuspid Valve TR Pk David: 2.87 TR Pk Grad: 33.00 Great Vessels Aorta Sinus of Valsalva: 2.90 2.0-3.5 cm Ao Asc: 2.80 2.1-3.4 cm Pulmonary Valve PV Pk David: 0.99 Peak PV Grad: 4.00 Updated in Other Vendor System with Status of Final Prosper Restrepo MD electronically signed on 10/06/2025 3:46:03 PM with status of Final
[2025-10-06 07:04] LABS: NT Pro B Type Natriuretic Pept 2327.2 pg/mL (<300)
[2025-10-06 07:47] LABS: Appearance Urine Clear; Glucose Urine UA Negative (Negative); PH 5.0 (5.0-9.0); Specific Gravity - Urine 1.015 (1.005-1.025); UMIC TRIGGER UACC YES
[2025-10-06 07:52] LABS: UACC Culture Trigger YES
--- NOTE | 2025-10-06 08:27 | PHA.MEDREC ---
Pharmacy Consult ? Medication Reconciliation Pharmacy has completed the medication reconciliation.Med rec complete, utilized list from [facility] rehab, patient discharge papers dated 10/05/25
[2025-10-06] MEDS: Metoprolol Succinate ER 50 MG TAB.ER.24H PO (11:34)
[2025-10-06 11:38] LABS: Glucose, Whole Blood 173 mg/dL (60-115)
--- NOTE | 2025-10-06 13:02 | MHC.SL.SWA ---
Speech Pathologist Impression: Pharyngeal Dysphagia, Pharyngoesophageal Dysphagia Risk of Aspiration Due to:GI condition Dysphasia Diet Status: Start on NDD3/THIN Liquid Consistency and Strategies for Safe Swallow: Liquid Intake Recommendation: Thin Solid Food Consistency: Dietary Recommendations: Chopped/Advanced (NDD3) Additional Modifications to Solid Foods: Patient w/ hx of GERD, reports intermittently feeling certain foods (i.e. pretzels) get caught in her throat. She denies having any difficulty swallowing soft foods or liquids. She denies choking/coughing or pain with swallowing. Patient was observed eating a snack. She fed herself independently, no overt difficulties observed, patient denied having any symptoms at this time. Patient is recommended a CHOPPED/ADVANCED (NDD3) diet to assist with pharyngeal clearance, moisten foods with sauces/gravies, THIN liquids, pills WHOLE w/ LIQUID. SPLICING MACHINE OPERATOR AUTOMATIC advised patient on strategies to promote clearance: sit upright during and after PO intake, take small bites, chew food well, alternate with liquid wash and dry swallows. Patient stated she already does this. SPLICING MACHINE OPERATOR AUTOMATIC notified MD, RN, and RD of recommendations and requested MD to update diet order. SPLICING MACHINE OPERATOR AUTOMATIC to f/u 1-2x to monitor tolerance. Oral Medication Intake: Whole with Liquid Please contact the pharmacy regarding appropriate crushable or liquid drug formulations that are available whenever modified delivery is recommended. Supervision While Eating and Drinking for Safe Swallow: Intermittent Supervision Foods to Avoid: [place] hard, dry, or sticky foods Recommendation for Speech: Inpatient Speech Therapy Comment: 1-2 f/u; patient may benefit from GI consult (inpatient vs. outpatient) Dub Room Engineer Clinican/Clinical Fellow: No Supervisory Statement: I have reviewed and agree with the student/clinical fellow's documentation: N/A Speech Language Pathologist: Bibi Camara M.A., [facility]-SPLICING MACHINE OPERATOR AUTOMATIC
[2025-10-06] MEDS: 0.9 % Sodium Chloride Flush 3 ML SYRINGE IVFLUSH ×2 (15:44→21:00)
[2025-10-06 16:29] LABS: Glucose, Whole Blood 172 mg/dL (60-115)
[2025-10-06] MEDS: oxyCODONE HCl Immed Release 5 MG TABLET PO (16:31)
--- NOTE | 2025-10-06 17:41 | P.PNIM_ITS ---
Subjective Subjective Date of Service: 10/06/25 Interval History: Feels tired, weak, SOB Not on home O2 No CP Not sure if legs more swollen than normal Review of Systems Review of Systems: Yes all other systems are reviewed and are negative Physical Exam 2 Exam: Exam: General: AOx3, no acute distress. Appears weak and chronically ill Resp: Diminished but clear. No wheezing or crackles. Pt with accessory muscle use CVS: S1, S2, RRR GI: +BS, NT, no distention Skin: Warm, dry Neuro: Cranial nerves II-XII grossly intact bilaterally. Motor grossly intact bilaterally Extremities: 2+ pitting edema Psych: Appropriate affect Vital Signs: Vital Signs: Last Vital Signs Temp 97.5 F 10/06/25 15:28 Pulse 66 10/06/25 15:28 Resp 20 10/06/25 15:28 BP 169/76 H 10/06/25 15:28 Pulse Ox 95 10/06/25 15:28 O2 Del Method Nasal Cannula 10/06/25 15:28 O2 Flow Rate 3 10/06/25 15:28 BMI result Body Mass Index 25.8 Objective Data Active Medications Acetaminophen (Acetaminophen 325 Mg Tablet) 650 mg PO Q6H PRN PRN Reason: Pain, Mild 1-3,fever,headache Amiodarone HCl (Amiodarone Hcl 200 Mg Tablet) 200 mg PO DAILY [facility] Last Admin: 10/06/25 11:35 Dose: 200 mg Documented By: BRYCE Amlodipine Besylate (Amlodipine Besylate 10 Mg Tablet) 10 mg PO DAILY [facility]; Protocol Last Admin: 10/06/25 11:34 Dose: 10 mg Documented By: BRYCE Apixaban (Apixaban 5 Mg Tablet) 5 mg PO BID [facility] Last Admin: 10/06/25 11:35 Dose: 5 mg Documented By: BRYCE Calcium Carbonate (Calcium Carbonate 750 Mg Tab.Chew) 750 mg PO Q4H PRN PRN Reason: Heartburn Dextrose (Dextrose 50 % 25 Gm/50 Ml Syringe) 25 gm IVPUSH Q15M PRN; Protocol PRN Reason: per Hypoglycemia Standing Ord. Ferrous Sulfate (Ferrous Sulfate 324 Mg Tablet.) 324 mg PO DAILY [facility] Gabapentin (Gabapentin 100 Mg Capsule) 100 mg PO TID [facility] Last Admin: 10/06/25 15:44 Dose: 100 mg Documented By: BRYCE Glucose (Glucose Gel 15 Gm Gel..Gram.) 15 gm PO Q15M PRN; Protocol PRN Reason: per Hypoglycemia Standing Ord. Hydralazine HCl (Hydralazine Hcl 25 Mg Tablet) 75 mg PO QID [facility]; Protocol Last Admin: 10/06/25 16:31 Dose: 75 mg Documented By: BRYCE Piperacillin Sod/Tazobactam (Sod 3.375 gm/ Sodium Chloride) 50 mls @ 100 mls/hr IV Q6H [facility] Last Infusion: 10/06/25 16:54 Dose: Infused Documented By: BRYCE Insulin Human Lispro (Insulin Lispro 100 Unit/Ml 3 Ml Vial) 0 unit SUBCUT QIDACHS [facility]; Protocol Last Admin: 10/06/25 16:31 Dose: 2 unit Documented By: BRYCE Magnesium Hydroxide (Milk Of Magnesia 30 Ml Oral.Susp) 30 ml PO DAILY PRN PRN Reason: Constipation Melatonin (Melatonin 3 Mg Tablet) 6 mg PO BEDTIME PRN PRN Reason: Insomnia Methocarbamol (Methocarbamol 500 Mg Tablet) 1,000 mg PO TID [facility] Last Admin: 10/06/25 15:43 Dose: 1,000 mg Documented By: BRYCE Metoprolol Succinate (Metoprolol Succinate Er 50 Mg Tab.Er.24h) 50 mg PO DAILY [facility]; Protocol Last Admin: 10/06/25 11:34 Dose: 50 mg Documented By: BRYCE Omeprazole (Omeprazole 20 Mg Capsule.Dr) 20 mg PO DAILY@0630 [facility] Ondansetron HCl (Ondansetron Hcl 4 Mg/2 Ml Vial) 4 mg IVPUSH Q8H PRN PRN Reason: Nausea and Vomiting Oxycodone HCl (Oxycodone Hcl Immed Release 5 Mg Tablet) 5 mg PO Q6H PRN PRN Reason: Pain, Severe (Pain Scale 7-10) Last Admin: 10/06/25 16:31 Dose: 5 mg Documented By: BRYCE Pravastatin Sodium (Pravastatin Sodium 20 Mg Tablet) 20 mg PO DAILY [facility] Last Admin: 10/06/25 15:44 Dose: Not Given Documented By: BRYCE Non-Admin Reason: Patient Refused Sodium Chloride (0.9 % Sodium Chloride Flush 3 Ml Syringe) 3 ml IVFLUSH QSHIFT [facility] Last Admin: 10/06/25 15:44 Dose: 3 ml Documented By: BRYCE Tramadol HCl (Tramadol Hcl 50 Mg Tablet) 50 mg PO Q6H PRN PRN Reason: Pain, Moderate(Pain Scale 4-6) Labs 10/06/25 06:18 10/06/25 06:18 Labs: Laboratory Results - last 24 hr 10/06/25 10/06/25 10/06/25 01:25 01:35 03:58 MCV 101.1 H MCH 31.5 MCHC 31.1 RDW 15.4 Plt Count 295 MPV 11.6 Immature Gran % (Auto) 1.5 H Neut % (Auto) 77.3 H Lymph % (Auto) 10.9 L [place] % (Auto) 7.8 Eos % (Auto) 1.8 Baso % (Auto) 0.7 Lymph # (Auto) 1.1 L [place] # (Auto) 0.8 Eos # (Auto) 0.2 Baso # (Auto) 0.1 Abs Immat Gran (auto) 0.15 H Absolute Neuts (auto) 7.5 Absolute Nucleated RBC 0.000 Nucleated RBC % (auto) 0.0 PT 20.1 H INR 1.7 H VBG pH 7.30 L VBG pCO2 42 VBG pO2 52 VBG HCO3 21 L VBG O2 Saturation 77.0 VBG Base Excess -5.0 Anion Gap 14 Estim Creat Clear Calc 34.5 Estimated GFR 46 POC Glucose Random Glucose 172 H Lactic Acid Calcium 9.4 Troponin I High Sens < 2.7 NT-Pro-B Natriuret Pep Urine Color Urine Appearance Urine pH Ur Specific [place] Urine Protein Urine Glucose (UA) Urine Ketones Urine Blood Urine Nitrite Ur Leukocyte Esterase Urine RBC Urine WBC Ur Squamous Epith Cells Urine Bacteria Hyaline Casts Influenza Type A (PCR) NEGATIVE Influenza Type B (PCR) NEGATIVE RSV RNA Qual (PCR) NEGATIVE SARS-CoV-2 RNA (RT-PCR) NEGATIVE 10/06/25 10/06/25 10/06/25 04:36 06:18 06:22 MCV 101.8 H MCH 31.8 MCHC 31.3 RDW 15.0 Plt Count 270 MPV 11.2 Immature Gran % (Auto) 1.6 H Neut % (Auto) 77.4 H Lymph % (Auto) 11.2 L [place] % (Auto) 7.7 Eos % (Auto) 1.6 Baso % (Auto) 0.5 Lymph # (Auto) 1.2 [place] # (Auto) 0.8 Eos # (Auto) 0.2 Baso # (Auto) 0.1 Abs Immat Gran (auto) 0.16 H Absolute Neuts (auto) 8.0 Absolute Nucleated RBC 0.000 Nucleated RBC % (auto) 0.0 PT INR VBG pH 7.27 L VBG pCO2 45 VBG pO2 48 VBG HCO3 21 L VBG O2 Saturation 72.0 VBG Base Excess -5.3 Anion Gap 12 Estim Creat Clear Calc 39.0 Estimated GFR 53 POC Glucose Random Glucose 156 H Lactic Acid 0.6 Calcium 8.8 D Troponin I High Sens NT-Pro-B Natriuret Pep 2327.2 H Urine Color Urine Appearance Urine pH Ur Specific [place] Urine Protein Urine Glucose (UA) Urine Ketones Urine Blood Urine Nitrite Ur Leukocyte Esterase Urine RBC Urine WBC Ur Squamous Epith Cells Urine Bacteria Hyaline Casts Influenza Type A (PCR) Influenza Type B (PCR) RSV RNA Qual (PCR) SARS-CoV-2 RNA (RT-PCR) 10/06/25 10/06/25 10/06/25 07:35 11:34 16:25 MCV MCH MCHC RDW Plt Count MPV Immature Gran % (Auto) Neut % (Auto) Lymph % (Auto) [place] % (Auto) Eos % (Auto) Baso % (Auto) Lymph # (Auto) [place] # (Auto) Eos # (Auto) Baso # (Auto) Abs Immat Gran (auto) Absolute Neuts (auto) Absolute Nucleated RBC Nucleated RBC % (auto) PT INR VBG pH VBG pCO2 VBG pO2 VBG HCO3 VBG O2 Saturation VBG Base Excess Anion Gap Estim Creat Clear Calc Estimated GFR POC Glucose 173 H 172 H Random Glucose Lactic Acid Calcium Troponin I High Sens NT-Pro-B Natriuret Pep Urine Color Yellow Urine Appearance Clear Urine pH 5.0 Ur Specific [place] 1.015 Urine Protein 30 (1+) H Urine Glucose (UA) Negative Urine Ketones Negative Urine Blood Negative Urine Nitrite Negative Ur Leukocyte Esterase Small (1+) H Urine RBC 0-2 Urine WBC 21-50 H Ur Squamous Epith Cells 0-2 Urine Bacteria 4+ Hyaline Casts 0-2 Influenza Type A (PCR) Influenza Type B (PCR) RSV RNA Qual (PCR) SARS-CoV-2 RNA (RT-PCR) Assessment and Plan (1) Acute heart failure with preserved ejection fraction (HFpEF): Status: Acute (2) Acute respiratory failure with hypoxia: Status: Acute Plan pt is an 85 yo f with a pmhx significant for T2DM, paroxysmal a fib on eliqius, HTN, GERD, MV stenosis, emphysema, and HFpEF. who presented to the ED due to hypoxia and SOB. acute hypoxic respiratory failure likely multifactorial: secondary to pneumonia and CHF - vancomycin and zosyn due to recent rehab stay - aspiration precautions - titrate O2 PRN - stat VBG and BNP - monitor CBC and BMP HFpEF, acute exacerbation - BNP elevated, 2+ pitting edema and worsening SOB - Lasix 20mg IV bid - echo showed hyperdynamic LV systolic function, LVEF 71%, severe mitral annular calcification, moderate to severe mitral valve stenosis, moderately dilated left atrium - tele acute metabolic acidosis with hyperchloremia and pseudohyperkalemia (hemolysis) - avoid further IVF due to risk to fluid overload - monitor BMP, VBG T2DM - SSI - diabetic diet - lantus to be resumed once bed rec done paroxysmal a fib - eliquis - continue amiodarone HTN - continue amlodipine, hold omlesartan GERD - continue home meds chronic emphysema, no acute exacerbation - continue home meds med rec pending DNR/DNI VTE prophy: brady Pt with acute hypoxic respiratory failure likely secondary to aspiration pneumonia, requires continued hospitalization as she still needs 3 L supplemental oxygen to maintain 92%. Quality Stroke Does the patient have a stroke diagnosis?: No VTE Prior VTE?: No VTE Risk Level:: Medical - moderate - high VTE Device Contraindication: Treatment Not Indicated VTE Drug Contraindication: N/A - Med Ordered
[2025-10-06 19:59] LABS: Glucose, Whole Blood 149 mg/dL (60-115)
[2025-10-07] VITALS (7 sets, daily range): BP systolic 136–168; BP diastolic 60–73; PULSE 58–68; RESP 18–19; TEMP 36.2–36.4; O2SAT 91–96
[2025-10-07 06:22] LABS: Venous Blood Gas Refer to POC result
[2025-10-07 06:23] LABS: VBG HCO3 22 mmol/L (22-26); VBG O2 % Saturation 86.0 %
[2025-10-07 06:50] LABS: Hematocrit 33.8 % (37.0-47.0); Hemoglobin 10.9 g/dl (12.0-16.0); Mean Corpuscular HGB Conc 32.2 g/dl (31.0-35.0); Mean Corpuscular Hemoglobin 32.1 pg (27.0-33.0); Mean Corpuscular Volume 99.4 fL (80.0-98.0); NRBC Abs Auto 0.000 X10*3/uL (0.0-0.012); NRBC Pct Auto 0.0 /100WBC (0.0-0.2); Platelet Count 274 X10*3/uL (160-400); Red Blood Count 3.40 X10*6/uL (4.20-5.50); White Blood Count 9.2 X10*3/uL (4.8-10.8)
[2025-10-07 06:59] LABS: Anion Gap 14 (12-20); Blood Urea Nitrogen 16 mg/dL (9-16); Calcium 9.1 mg/dL (8.4-10.2); Carbon Dioxide 22 mmol/L (22-29); Chloride 110 mmol/L (96-108); Creatinine Clr Calc Pharmacy 41.0; Estimated Glomerular Filt Rate 56; Potassium 4.0 mmol/L (3.3-5.1); Sodium 142 mmol/L (135-145)
[2025-10-07 07:06] LABS: NT Pro B Type Natriuretic Pept 2221.7 pg/mL (<300)
[2025-10-07 07:56] LABS: Glucose, Whole Blood 170 mg/dL (60-115)
[2025-10-07] MEDS: Ferrous Sulfate 324 MG TABLET.DR PO (08:05)
[2025-10-07] MEDS: Metoprolol Succinate ER 50 MG TAB.ER.24H PO (08:05)
[2025-10-07] MEDS: 0.9 % Sodium Chloride Flush 3 ML SYRINGE IVFLUSH ×3 (08:06→22:13)
[2025-10-07] MEDS: Furosemide 20 MG/2 ML VIAL IVPUSH (08:06)
--- NOTE | 2025-10-07 10:33 | MHC.CM.PN ---
PT LVES WITH DAUGHTER HAD NO PREVIOUS SERVICES [facility] N/S
--- NOTE | 2025-10-07 10:39 | HO.PM.IMPN ---
Subjective Subjective Date of Service: 10/07/25 Physical Exam Vital Signs: Vital Signs: Last Vital Signs Temp 97.1 F 10/07/25 08:00 Pulse 68 10/07/25 08:00 Resp 18 10/07/25 08:00 BP 168/73 H 10/07/25 08:00 Pulse Ox 91 L 10/07/25 08:00 O2 Del Method Nasal Cannula 10/07/25 08:00 O2 Flow Rate 3 10/07/25 08:00 BMI result Body Mass Index 25.8 Objective Data Active Medications Acetaminophen (Acetaminophen 325 Mg Tablet) 650 mg PO Q6H PRN PRN Reason: Pain, Mild 1-3,fever,headache Amiodarone HCl (Amiodarone Hcl 200 Mg Tablet) 200 mg PO DAILY [facility] Last Admin: 10/07/25 08:05 Dose: 200 mg Documented By: CHRISTIANO Amlodipine Besylate (Amlodipine Besylate 10 Mg Tablet) 10 mg PO DAILY [facility]; Protocol Last Admin: 10/07/25 08:05 Dose: 10 mg Documented By: CHRISTIANO Apixaban (Apixaban 5 Mg Tablet) 5 mg PO BID [facility] Last Admin: 10/07/25 08:05 Dose: 5 mg Documented By: CHRISTIANO Calcium Carbonate (Calcium Carbonate 750 Mg Tab.Chew) 750 mg PO Q4H PRN PRN Reason: Heartburn Dextrose (Dextrose 50 % 25 Gm/50 Ml Syringe) 25 gm IVPUSH Q15M PRN; Protocol PRN Reason: per Hypoglycemia Standing Ord. Ferrous Sulfate (Ferrous Sulfate 324 Mg Tablet.Dr) 324 mg PO DAILY [facility] Last Admin: 10/07/25 08:05 Dose: 324 mg Documented By: CHRISTIANO Furosemide (Furosemide 20 Mg/2 Ml Vial) 20 mg IVPUSH BID@0900,1800 [facility]; Protocol Stop: 10/07/25 17:59 Last Admin: 10/07/25 08:06 Dose: 20 mg Documented By: CHRISTIANO Gabapentin (Gabapentin 100 Mg Capsule) 100 mg PO TID [facility] Last Admin: 10/07/25 08:06 Dose: 100 mg Documented By: CHRISTIANO Glucose (Glucose Gel 15 Gm Gel..Gram.) 15 gm PO Q15M PRN; Protocol PRN Reason: per Hypoglycemia Standing Ord. Hydralazine HCl (Hydralazine Hcl 25 Mg Tablet) 75 mg PO QID [facility]; Protocol Last Admin: 10/07/25 08:05 Dose: 75 mg Documented By: CHRISTIANO Piperacillin Sod/Tazobactam (Sod 3.375 gm/ Sodium Chloride) 50 mls @ 100 mls/hr IV Q6H [facility] Last Infusion: 10/07/25 10:07 Dose: Infused Documented By: CHRISTIANO Insulin Human Lispro (Insulin Lispro 100 Unit/Ml 3 Ml Vial) 0 unit SUBCUT QIDACHS [facility]; Protocol Last Admin: 10/07/25 08:06 Dose: 2 unit Documented By: CHRISTIANO Magnesium Hydroxide (Milk Of Magnesia 30 Ml Oral.Susp) 30 ml PO DAILY PRN PRN Reason: Constipation Melatonin (Melatonin 3 Mg Tablet) 6 mg PO BEDTIME PRN PRN Reason: Insomnia Methocarbamol (Methocarbamol 500 Mg Tablet) 1,000 mg PO TID [facility] Last Admin: 10/07/25 08:06 Dose: 1,000 mg Documented By: CHRISTIANO Metoprolol Succinate (Metoprolol Succinate Er 50 Mg Tab.Er.24h) 50 mg PO DAILY [facility]; Protocol Last Admin: 10/07/25 08:05 Dose: 50 mg Documented By: CHRISTIANO Omeprazole (Omeprazole 20 Mg Capsule.Dr) 20 mg PO DAILY@0630 [facility] Last Admin: 10/07/25 05:28 Dose: Not Given Documented By: ANTOIC Non-Admin Reason: Patient Refused Ondansetron HCl (Ondansetron Hcl 4 Mg/2 Ml Vial) 4 mg IVPUSH Q8H PRN PRN Reason: Nausea and Vomiting Oxycodone HCl (Oxycodone Hcl Immed Release 5 Mg Tablet) 5 mg PO Q6H PRN PRN Reason: Pain, Severe (Pain Scale 7-10) Last Admin: 10/06/25 16:31 Dose: 5 mg Documented By: BRYCE Pravastatin Sodium (Pravastatin Sodium 20 Mg Tablet) 20 mg PO DAILY [facility] Last Admin: 10/07/25 08:05 Dose: 20 mg Documented By: CHRISTIANO Sodium Chloride (0.9 % Sodium Chloride Flush 3 Ml Syringe) 3 ml IVFLUSH QSHIFT [facility] Last Admin: 10/07/25 08:06 Dose: 3 ml Documented By: CHRISTIANO Tramadol HCl (Tramadol Hcl 50 Mg Tablet) 50 mg PO Q6H PRN PRN Reason: Pain, Moderate(Pain Scale 4-6) Labs 10/07/25 06:21 10/07/25 06:21 Labs: Laboratory Results - last 24 hr 10/06/25 10/06/25 10/06/25 11:34 16:25 19:55 MCV MCH MCHC RDW Plt Count MPV Absolute Nucleated RBC Nucleated RBC % (auto) VBG pH VBG pCO2 VBG pO2 VBG HCO3 VBG O2 Saturation VBG Base Excess Anion Gap Estim Creat Clear Calc Estimated GFR POC Glucose 173 H 172 H 149 H Random Glucose Calcium NT-Pro-B Natriuret Pep 10/07/25 10/07/25 10/07/25 06:18 06:21 07:38 MCV 99.4 H MCH 32.1 MCHC 32.2 RDW 15.4 Plt Count 274 MPV 11.6 Absolute Nucleated RBC 0.000 Nucleated RBC % (auto) 0.0 VBG pH 7.41 VBG pCO2 35 VBG pO2 56 VBG HCO3 22 VBG O2 Saturation 86.0 VBG Base Excess -1.6 Anion Gap 14 Estim Creat Clear Calc 41.0 Estimated GFR 56 POC Glucose 170 H Random Glucose 160 H Calcium 9.1 NT-Pro-B Natriuret Pep 2221.7 H Microbiology Microbiology Results: Microbiology 10/06/25 04:36 Blood Culture - Preliminary Blood - Venous Prelim: GPR Gram Stain only 10/06/25 04:49 Blood Culture - Preliminary Blood - Venous No growth after 24 hours. Assessment and Plan (1) Acute heart failure with preserved ejection fraction (HFpEF): Status: Acute (2) Bacteremia: Status: Acute Plan Pt is an 85 yo f with a pmhx significant for T2DM, paroxysmal a fib on eliqius, HTN, GERD, MV stenosis, emphysema, and HFpEF. who presented to the ED due to hypoxia and SOB. acute hypoxic respiratory failure likely multifactorial: secondary to pneumonia and CHF - vancomycin and zosyn due to recent rehab stay - aspiration precautions - VBG normalized today - titrate supplemental O2 > 92; pt not on home oxygen - monitor CBC and BMP Bacteremia 1/2 blood cultures positive for Gram-positive cocci in chains Treat with vanc and Zosyn as above Infectious disease consult Follow blood cultures HFpEF, acute exacerbation - BNP elevated, 2+ pitting edema and worsening SOB - Lasix 20mg IV bid - echo showed hyperdynamic LV systolic function, LVEF 71%, severe mitral annular calcification, moderate to severe mitral valve stenosis, moderately dilated left atrium - tele Weakness, hx of recent fall - pt recently at rehab; daughter reports she was only at home for 6 hours before re-presented to the emergency room - seen by PT who recommend acute rehab acute metabolic acidosis with hyperchloremia and pseudohyperkalemia (hemolysis) - avoid further IVF due to risk to fluid overload - monitor BMP, VBG T2DM - SSI - diabetic diet - lantus to be resumed once bed rec done paroxysmal a fib - brady - continue amiodarone HTN - continue amlodipine, hold omlesartan GERD - continue home meds chronic emphysema, no acute exacerbation - continue home meds med rec pending DNR/DNI VTE prophy: brady Pt with acute hypoxic respiratory failure likely secondary to aspiration pneumonia, requires continued hospitalization as she still needs 3 L supplemental oxygen to maintain 92%. Pt also has tested positive bacteremia and will require continued IV antibiotics. Quality Stroke Does the patient have a stroke diagnosis?: No VTE Prior VTE?: No VTE Risk Level:: Medical - moderate - high VTE Device Contraindication: Treatment Not Indicated VTE Drug Contraindication: N/A - Med Ordered
[2025-10-07 11:54] LABS: Glucose, Whole Blood 262 mg/dL (60-115)
[2025-10-07 21:19] LABS: Glucose, Whole Blood 162 mg/dL (60-115)
[2025-10-08 03:35] VITALS: BP 159/67; PULSE 61; RESP 18; TEMP 36.6; O2SAT 92
[2025-10-08 07:35] LABS: Glucose, Whole Blood 123 mg/dL (60-115)
[2025-10-08 07:59] VITALS: BP 151/63; PULSE 63; RESP 18; TEMP 36.3; O2SAT 93
[2025-10-08] MEDS: 0.9 % Sodium Chloride Flush 3 ML SYRINGE IVFLUSH ×3 (08:22→21:25)
[2025-10-08] MEDS: Ferrous Sulfate 324 MG TABLET.DR PO (08:22)
[2025-10-08] MEDS: Metoprolol Succinate ER 50 MG TAB.ER.24H PO (08:22)
[2025-10-08 09:11] LABS: Creatinine Clr Calc Pharmacy 31.4; Estimated Glomerular Filt Rate 41
--- NOTE | 2025-10-08 09:26 | PHA.PROG ---
Admission Date/Time: October 06, 2025 04:45 Indication: respiratory Weight in k.1 kg Adjusted body weight in Kg: [place] body weight in Kg: Obesity Dosing Indication % IBW: BMI 25.8 Serum Creatinine - Last 168 Hours 10/06/25 10/06/25 10/07/25 01:25 06:18 06:21 Creatinine 1.13 1.00 0.95 10/08/25 08:35 Creatinine 1.24 Estimated CrCl and GFR - Last 168 Hours 10/06/25 10/06/25 10/07/25 01:25 06:18 06:21 Estim Creat Clear Calc 34.5 39.0 41.0 Estimated GFR 46 53 56 10/08/25 08:35 Estim Creat Clear Calc 31.4 Estimated GFR 41 Vancomycin Loading Dose: 1750mg x1 on 10/06 Current Vancomycin Dosing Regimen: 1000mg Q24H Vancomycin Monitoring using AUC goal of 400 - 600 range with trough as surrogate marker: 583 Date and Time for next Vancomycin Level to be drawn: 10/09 @0800 Pharmacist Comments on Vancomycin Plan: Pt's SCr increased since loading dose. Starting off with 1000mg bc >48h since load, predicted trough 19 so patient vanco level can get into range and then adjust as needed per renal function, possibly to 750mg Q24H. Vancomycin dosing will take advantage of [employer] as a clinical decision support tool that uses Bayesian modeling to calculate individual patient's pharmacokinetic parameters and forecast the patient's drug concentration time course with the target goal AUC 24 range of 400 - 600 mg/L/hr.
[2025-10-08 09:58] LABS: MRSA Nasal PCR NEGATIVE (Negative); SA Nasal PCR NEGATIVE (Negative)
[2025-10-08 11:28] LABS: Glucose, Whole Blood 232 mg/dL (60-115)
[2025-10-08 11:36] VITALS: BP 153/69; PULSE 64; RESP 18; TEMP 36.4; O2SAT 91
--- NOTE | 2025-10-08 15:53 | MHC.CM.PN ---
DP: [facility] FOLLOWING FOR POSSIBLE ADMISSION. CLINICAL UPDATES SENT VIA [facility].
[2025-10-08 16:00] VITALS: BP 140/64; PULSE 87; RESP 19; TEMP 37; O2SAT 96
--- NOTE | 2025-10-08 16:20 | HO.PM.IMPN ---
Subjective Subjective Date of Service: 10/08/25 Interval History: Breathing improved, though still requiring supplemental O2 Legs less swollen Cough better No F/C BCx positive for viridans Streptococcus which was deemed an unlikely organisms Urine culture growing Gram-negative rods Review of Systems Review of Systems: Yes all other systems are reviewed and are negative Physical Exam Exam: Exam: General: AOx3, no acute distress. Appears weak and chronically ill Resp: Diminished but clear. No wheezing or crackles. Pt with accessory muscle use CVS: S1, S2, RRR GI: +BS, NT, no distention Skin: Warm, dry Chest: left-sided anterior chest wall tenderness Neuro: Cranial nerves II-XII grossly intact bilaterally. Motor grossly intact bilaterally. Mild essential tremor Extremities: Trace pitting edema of lower extremities Psych: Appropriate affect Vital Signs: Vital Signs: Last Vital Signs Temp 97.5 F 10/08/25 11:36 Pulse 64 10/08/25 11:36 Resp 18 10/08/25 11:36 BP 153/69 H 10/08/25 11:36 Pulse Ox 91 L 10/08/25 11:36 O2 Del Method Nasal Cannula 10/08/25 11:36 O2 Flow Rate 2 10/08/25 11:36 BMI result Body Mass Index 25.8 Objective Data Active Medications Acetaminophen (Acetaminophen 325 Mg Tablet) 650 mg PO Q6H PRN PRN Reason: Pain, Mild 1-3,fever,headache Amiodarone HCl (Amiodarone Hcl 200 Mg Tablet) 200 mg PO DAILY [facility] Last Admin: 10/08/25 08:22 Dose: 200 mg Documented By: CHRISTIANO Amlodipine Besylate (Amlodipine Besylate 10 Mg Tablet) 10 mg PO DAILY [facility]; Protocol Last Admin: 10/08/25 08:21 Dose: 10 mg Documented By: CHRISTIANO Apixaban (Apixaban 5 Mg Tablet) 5 mg PO BID [facility] Last Admin: 10/08/25 08:22 Dose: 5 mg Documented By: CHRISTIANO Calcium Carbonate (Calcium Carbonate 750 Mg Tab.Chew) 750 mg PO Q4H PRN PRN Reason: Heartburn Dextrose (Dextrose 50 % 25 Gm/50 Ml Syringe) 25 gm IVPUSH Q15M PRN; Protocol PRN Reason: per Hypoglycemia Standing Ord. Docusate Sodium (Docusate Sodium 100 Mg Capsule) 100 mg PO BID PRN PRN Reason: Constipation Ferrous Sulfate (Ferrous Sulfate 324 Mg Tablet.) 324 mg PO DAILY [facility] Last Admin: 10/08/25 08:22 Dose: 324 mg Documented By: CHRISTIANO Gabapentin (Gabapentin 100 Mg Capsule) 100 mg PO TID [facility] Last Admin: 10/08/25 15:13 Dose: 100 mg Documented By: CHRISTIANO Glucose (Glucose Gel 15 Gm Gel..Gram.) 15 gm PO Q15M PRN; Protocol PRN Reason: per Hypoglycemia Standing Ord. Hydralazine HCl (Hydralazine Hcl 25 Mg Tablet) 75 mg PO QID [facility]; Protocol Last Admin: 10/08/25 13:06 Dose: 75 mg Documented By: CHRISTIANO Piperacillin Sod/Tazobactam (Sod 3.375 gm/ Sodium Chloride) 50 mls @ 100 mls/hr IV Q6H [facility] Last Infusion: 10/08/25 15:56 Dose: Infused Documented By: CHRISTIANO Vancomycin HCl 1,000 mg/ (Sodium Chloride) 270 mls @ 270 mls/hr IV Q24H [facility] Last Infusion: 10/08/25 11:29 Dose: Infused Documented By: CHRISTIANO Insulin Human Lispro (Insulin Lispro 100 Unit/Ml 3 Ml Vial) 0 unit SUBCUT QIDACHS [facility]; Protocol Last Admin: 10/08/25 11:46 Dose: 4 unit Documented By: CHRISTIANO Magnesium Hydroxide (Milk Of Magnesia 30 Ml Oral.Susp) 30 ml PO DAILY PRN PRN Reason: Constipation Melatonin (Melatonin 3 Mg Tablet) 6 mg PO BEDTIME PRN PRN Reason: Insomnia Methocarbamol (Methocarbamol 500 Mg Tablet) 1,000 mg PO TID [facility] Last Admin: 10/08/25 15:13 Dose: 1,000 mg Documented By: CHRISTIANO Metoprolol Succinate (Metoprolol Succinate Er 50 Mg Tab.Er.24h) 50 mg PO DAILY [facility]; Protocol Last Admin: 10/08/25 08:22 Dose: 50 mg Documented By: CHRISTIANO Omeprazole (Omeprazole 20 Mg Capsule.) 20 mg PO DAILY@0630 [facility] Last Admin: 10/08/25 05:36 Dose: 20 mg Documented By: CESAR Ondansetron HCl (Ondansetron Hcl 4 Mg/2 Ml Vial) 4 mg IVPUSH Q8H PRN PRN Reason: Nausea and Vomiting Oxycodone HCl (Oxycodone Hcl Immed Release 5 Mg Tablet) 5 mg PO Q6H PRN PRN Reason: Pain, Severe (Pain Scale 7-10) Last Admin: 10/06/25 16:31 Dose: 5 mg Documented By: BRYCE Pharmacy Consult (Consult Rx Vancomycin Dosing) 1 each MISCELLANE DAILY PRN PRN Reason: Consult order Pravastatin Sodium (Pravastatin Sodium 20 Mg Tablet) 20 mg PO DAILY [facility] Last Admin: 10/08/25 08:22 Dose: 20 mg Documented By: CHRISTIANO Sodium Chloride (0.9 % Sodium Chloride Flush 3 Ml Syringe) 3 ml IVFLUSH QSHIFT [facility] Last Admin: 10/08/25 15:16 Dose: 3 ml Documented By: CHRISTIANO Tramadol HCl (Tramadol Hcl 50 Mg Tablet) 50 mg PO Q6H PRN PRN Reason: Pain, Moderate(Pain Scale 4-6) Labs 10/07/25 06:21 10/08/25 08:35 Labs: Laboratory Results - last 24 hr 10/07/25 10/08/25 10/08/25 21:15 07:15 08:35 Estim Creat Clear Calc 31.4 Estimated GFR 41 POC Glucose 162 H 123 H Nasal Screen MRSA (PCR) Nasal S. aureus Screen Nasal MRSA/S.aureus Interp 10/08/25 10/08/25 08:36 11:15 Estim Creat Clear Calc Estimated GFR POC Glucose 232 H Nasal Screen MRSA (PCR) NEGATIVE Nasal S. aureus Screen NEGATIVE Nasal MRSA/S.aureus Interp SEE NOTE Microbiology Microbiology Results: Microbiology 10/06/25 Unknown Urine Culture - Preliminary Urine clean catch - Clean Catch Midstream Gram negative emily 10/06/25 04:36 Blood Culture - Final Blood - Venous Viridans streptococcus group 10/06/25 04:49 Blood Culture - Preliminary Blood - Venous No growth after 48 hours. Assessment and Plan (1) Acute heart failure with preserved ejection fraction (HFpEF): Status: Acute Plan Pt is an 85 yo f with a pmhx significant for T2DM, paroxysmal a fib on eliqius, HTN, GERD, MV stenosis, emphysema, and HFpEF. who presented to the ED due to hypoxia and SOB. acute hypoxic respiratory failure likely multifactorial: secondary to pneumonia and CHF - initially on vancomycin and zosyn due to recent rehab stay; MRSA swab negative, DC vanc but continue Zosyn, day 3 - aspiration precautions - VBG now normalized - titrate supplemental O2 > 92; pt not on home oxygen - monitor CBC and BMP Bacteremia 1/2 blood cultures positive for viridans Streptococcus, thought to be an unlikely pathogen Being covered by Zosyn as above UTI UA growing Gram-negative rods Pain being covered with Zosyn as above Follow urine cultures HFpEF, acute exacerbation - BNP elevated, 2+ pitting edema and worsening SOB - Lasix 20mg IV bid, will switch to po - echo showed hyperdynamic LV systolic function, LVEF 71%, severe mitral annular calcification, moderate to severe mitral valve stenosis, moderately dilated left atrium - tele Weakness, hx of recent fall - pt recently at rehab; daughter reports she was only at home for 6 hours before re-presented to the emergency room - seen by PT who recommend acute rehab acute metabolic acidosis with hyperchloremia and pseudohyperkalemia (hemolysis) - avoid further IVF due to risk to fluid overload - monitor BMP, VBG T2DM - SSI - diabetic diet - lantus to be resumed once bed rec done paroxysmal a fib - brady - continue amiodarone HTN - continue amlodipine, hold omlesartan GERD - continue home meds chronic emphysema, no acute exacerbation - continue home meds med rec pending DNR/DNI VTE prophy: brady Pt with acute hypoxic respiratory failure likely secondary to aspiration pneumonia, requires continued hospitalization as she still needs 3 L supplemental oxygen to maintain 92%. Pt also had recent hospitalization and short-term rehab stay, and will need empiric IV antibiotics while awaiting urine cultures.. Quality Stroke Does the patient have a stroke diagnosis?: No VTE Prior VTE?: No VTE Risk Level:: Medical - moderate - high VTE Device Contraindication: Treatment Not Indicated VTE Drug Contraindication: N/A - Med Ordered
[2025-10-08 16:22] LABS: Glucose, Whole Blood 146 mg/dL (60-115)
[2025-10-08 20:00] VITALS: BP 132/61; PULSE 62; RESP 19; TEMP 36.3; O2SAT 92
[2025-10-08 20:32] LABS: Glucose, Whole Blood 224 mg/dL (60-115)
[2025-10-09] VITALS (10 sets, daily range): BP systolic 143–177; BP diastolic 50–74; PULSE 60–65; RESP 18–20; TEMP 36.1–36.5; O2SAT 92–96
--- NOTE | 2025-10-09 07:38 | P.PNIM_ITS ---
Subjective Subjective Date of Service: 10/09/25 Interval History: Spoke to the patient's daughter over the phone- answered questions about her health overall Klebsiella UTI Blood culture likely a contaminant as only 1 out of the 2 bottles was positive- as well as she being HTNsive Will try to wean off O2 PT eval Challenge with po Abx - switching to BAcctrim based on C/S Physical Exam 2 Exam: Exam: General: AOx3, no acute distress. Appears weak and chronically ill Resp: Diminished but clear. No wheezing or crackles. Pt with accessory muscle use CVS: S1, S2, RRR GI: +BS, NT, no distention Chest: left-sided anterior chest wall tenderness Neuro: Cranial nerves II-XII grossly intact bilaterally. Motor grossly intact bilaterally. Mild essential tremor Vital Signs: Vital Signs: Last Vital Signs Temp 97.7 F 10/09/25 03:21 Pulse 61 10/09/25 03:21 Resp 20 10/09/25 03:21 BP 167/71 H 10/09/25 03:21 Pulse Ox 94 10/09/25 03:21 O2 Del Method Nasal Cannula 10/09/25 03:21 O2 Flow Rate 2 10/09/25 03:21 BMI result Body Mass Index 25.8 Objective Data Active Medications Acetaminophen (Acetaminophen 325 Mg Tablet) 650 mg PO Q6H PRN PRN Reason: Pain, Mild 1-3,fever,headache Amiodarone HCl (Amiodarone Hcl 200 Mg Tablet) 200 mg PO DAILY [facility] Last Admin: 10/08/25 08:22 Dose: 200 mg Documented By: CHRISTIANO Amlodipine Besylate (Amlodipine Besylate 10 Mg Tablet) 10 mg PO DAILY [facility]; Protocol Last Admin: 10/08/25 08:21 Dose: 10 mg Documented By: CHRISTIANO Apixaban (Apixaban 5 Mg Tablet) 5 mg PO BID [facility] Last Admin: 10/08/25 21:20 Dose: 5 mg Documented By: CESAR Calcium Carbonate (Calcium Carbonate 750 Mg Tab.Chew) 750 mg PO Q4H PRN PRN Reason: Heartburn Dextrose (Dextrose 50 % 25 Gm/50 Ml Syringe) 25 gm IVPUSH Q15M PRN; Protocol PRN Reason: per Hypoglycemia Standing Ord. Docusate Sodium (Docusate Sodium 100 Mg Capsule) 100 mg PO BID PRN PRN Reason: Constipation Ferrous Sulfate (Ferrous Sulfate 324 Mg Tablet.) 324 mg PO DAILY [facility] Last Admin: 10/08/25 08:22 Dose: 324 mg Documented By: CHRISTIANO Furosemide (Furosemide 40 Mg Tablet) 40 mg PO DAILY [facility]; Protocol Last Admin: 10/08/25 16:39 Dose: 40 mg Documented By: CHRISTIANO Gabapentin (Gabapentin 100 Mg Capsule) 100 mg PO TID [facility] Last Admin: 10/08/25 21:20 Dose: 100 mg Documented By: CESAR Glucose (Glucose Gel 15 Gm Gel..Gram.) 15 gm PO Q15M PRN; Protocol PRN Reason: per Hypoglycemia Standing Ord. Hydralazine HCl (Hydralazine Hcl 25 Mg Tablet) 75 mg PO QID [facility]; Protocol Last Admin: 10/08/25 21:19 Dose: 75 mg Documented By: CESAR Piperacillin Sod/Tazobactam (Sod 3.375 gm/ Sodium Chloride) 50 mls @ 100 mls/hr IV Q6H [facility] Last Infusion: 10/09/25 03:55 Dose: Infused Documented By: CESAR Insulin Human Lispro (Insulin Lispro 100 Unit/Ml 3 Ml Vial) 0 unit SUBCUT QIDACHS [facility]; Protocol Last Admin: 10/08/25 21:20 Dose: 4 unit Documented By: CESAR Magnesium Hydroxide (Milk Of Magnesia 30 Ml Oral.Susp) 30 ml PO DAILY PRN PRN Reason: Constipation Melatonin (Melatonin 3 Mg Tablet) 6 mg PO BEDTIME PRN PRN Reason: Insomnia Methocarbamol (Methocarbamol 500 Mg Tablet) 1,000 mg PO TID [facility] Last Admin: 10/08/25 21:20 Dose: 1,000 mg Documented By: CESAR Metoprolol Succinate (Metoprolol Succinate Er 50 Mg Tab.Er.24h) 50 mg PO DAILY [facility]; Protocol Last Admin: 10/08/25 08:22 Dose: 50 mg Documented By: CHRISTIANO Omeprazole (Omeprazole 20 Mg Capsule.) 20 mg PO DAILY@0630 [facility] Last Admin: 10/09/25 05:47 Dose: 20 mg Documented By: CESAR Ondansetron HCl (Ondansetron Hcl 4 Mg/2 Ml Vial) 4 mg IVPUSH Q8H PRN PRN Reason: Nausea and Vomiting Oxycodone HCl (Oxycodone Hcl Immed Release 5 Mg Tablet) 5 mg PO Q6H PRN PRN Reason: Pain, Severe (Pain Scale 7-10) Last Admin: 10/06/25 16:31 Dose: 5 mg Documented By: BRYCE Pravastatin Sodium (Pravastatin Sodium 20 Mg Tablet) 20 mg PO DAILY [facility] Last Admin: 10/08/25 08:22 Dose: 20 mg Documented By: CHRISTIANO Sodium Chloride (0.9 % Sodium Chloride Flush 3 Ml Syringe) 3 ml IVFLUSH QSHIFT [facility] Last Admin: 10/08/25 21:25 Dose: 3 ml Documented By: CESAR Tramadol HCl (Tramadol Hcl 50 Mg Tablet) 50 mg PO Q6H PRN PRN Reason: Pain, Moderate(Pain Scale 4-6) Labs 10/07/25 06:21 10/08/25 08:35 Labs: Laboratory Results - last 24 hr 10/08/25 10/08/25 10/08/25 08:35 08:36 11:15 Estim Creat Clear Calc 31.4 Estimated GFR 41 POC Glucose 232 H Nasal Screen MRSA (PCR) NEGATIVE Nasal S. aureus Screen NEGATIVE Nasal MRSA/S.aureus Interp SEE NOTE 10/08/25 10/08/25 16:17 20:28 Estim Creat Clear Calc Estimated GFR POC Glucose 146 H 224 H Nasal Screen MRSA (PCR) Nasal S. aureus Screen Nasal MRSA/S.aureus Interp Microbiology Microbiology Results: Microbiology 10/06/25 Unknown Urine Culture - Preliminary Urine clean catch - Clean Catch Midstream Klebsiella pneumoniae 10/06/25 04:36 Blood Culture - Final Blood - Venous Viridans streptococcus group 10/06/25 04:49 Blood Culture - Preliminary Blood - Venous No growth after 48 hours. Assessment and Plan (1) Acute heart failure with preserved ejection fraction (HFpEF): Status: Acute Plan Pt is an 85 yo f with a pmhx significant for T2DM, paroxysmal a fib on eliqius, HTN, GERD, MV stenosis, emphysema, and HFpEF. who presented to the ED due to hypoxia and SOB. acute hypoxic respiratory failure likely multifactorial: secondary to pneumonia and HFpEF Initially on IV abx, now being switched to BActrim HOme O2 eval tomorrow PT eval monitor CBC and BMP Bacteremia , possibly a contaminant since 1/2 BC + for Strep viridans SHe is HDS and hypertensive infact - despite resuming home anti-HTN 1/2 blood cultures positive for viridans Streptococcus, thought to be an unlikely pathogen now being switched to BActrim K pneumonia UTI - resistant to AMpicillin, will switch to PO bactrim , s/p 4 days of IV Zosyn AE HFpEF, increase lasix to 40 po bid - echo showed hyperdynamic LV systolic function, LVEF 71%, severe mitral annular calcification, moderate to severe mitral valve stenosis, moderately dilated left atrium - tele Weakness, hx of recent fall - pt recently at rehab; daughter reports she was only at home for 6 hours before re-presented to the emergency room - seen by PT who recommend acute rehab- will need rehab again acute metabolic acidosis with hyperchloremia and pseudohyperkalemia (hemolysis) - avoid further IVF due to risk to fluid overload - monitor BMP, VBG T2DM - SSI, titrated daily to maintain euglycemia - diabetic diet paroxysmal a fib - eliquis - continue amiodarone HTN - continue amlodipine, hold omlesartan GERD - continue home meds chronic emphysema, no acute exacerbation - continue home meds DNR/DNI VTE prophy: eliquis Dispo: STR likely based on deconditioning, switched to po abx, swicthed lasix dose, and needs home O2 eval This note is constructed using voice recognition software. While every effort has been made to ensure accuracy, talent specialist errors may have been included. Quality Stroke Does the patient have a stroke diagnosis?: No VTE Prior VTE?: No VTE Risk Level:: Medical - moderate - high VTE Device Contraindication: Treatment Not Indicated VTE Drug Contraindication: N/A - Med Ordered
[2025-10-09 07:55] LABS: Glucose, Whole Blood 147 mg/dL (60-115)
[2025-10-09] MEDS: Ferrous Sulfate 324 MG TABLET.DR PO (08:24)
[2025-10-09] MEDS: Metoprolol Succinate ER 50 MG TAB.ER.24H PO (08:24)
[2025-10-09] MEDS: 0.9 % Sodium Chloride Flush 3 ML SYRINGE IVFLUSH ×3 (08:25→20:07)
[2025-10-09 11:17] LABS: Glucose, Whole Blood 243 mg/dL (60-115)
--- NOTE | 2025-10-09 11:25 | MHC.CM.PN ---
Patient not medically cleared for dc. PT continues to recommend [facility]. [facility] following and updated. CM will continue to follow.
--- NOTE | 2025-10-09 12:22 | MHC.SLORD ---
Speech Language Pathology Order Status: Pt endorsed diarrhea today, nurses providing care. Pt currently on NDD3 diet with thin liquids, tolerating without difficulty. Recommendations for safety reviewed, pt verbalized her understanding. STEM CUTTER to followup x1 in monitoring pt tolerance of current diet.
[2025-10-09 16:09] LABS: Glucose, Whole Blood 240 mg/dL (60-115)
--- NOTE | 2025-10-09 18:08 | PC.RT ---
Home O2 eval scheduled for 10/10. Pt taken of O2 at this time, SATs 93%.
[2025-10-09 19:53] LABS: Glucose, Whole Blood 295 mg/dL (60-115)
[2025-10-09] MEDS: Sulfamethox/Trimeth 800/160 TABLET 1 TAB PO (20:07)
[2025-10-10] VITALS: BP 160/70; PULSE 64; RESP 20; TEMP 36.4; O2SAT 92
[2025-10-10 04:00] VITALS: BP 168/72; PULSE 65; RESP 18; TEMP 36.2; O2SAT 92
[2025-10-10 05:25] VITALS: BP 164/74
[2025-10-10 06:17] LABS: MANUAL DIFF FLAG NO
[2025-10-10 06:21] LABS: Hematocrit 32.3 % (37.0-47.0); Hemoglobin 10.3 g/dl (12.0-16.0); Imm Gran Abs Auto 0.07 X10*3/uL (0.00-0.03); Imm Gran Pct Auto 0.7 % (0.0-0.4); Lymphocytes Absolute Auto 1.0 X10*3/uL (1.2-4.9); Mean Corpuscular HGB Conc 31.9 g/dl (31.0-35.0); Mean Corpuscular Hemoglobin 31.5 pg (27.0-33.0); Mean Corpuscular Volume 98.8 fL (80.0-98.0); NRBC Abs Auto 0.000 X10*3/uL (0.0-0.012); NRBC Pct Auto 0.0 /100WBC (0.0-0.2); Platelet Count 218 X10*3/uL (160-400); Red Blood Count 3.27 X10*6/uL (4.20-5.50); White Blood Count 9.6 X10*3/uL (4.8-10.8)
[2025-10-10 06:49] LABS: Alanine Aminotransferase 14 U/L (0-31); Albumin Level 3.6 g/dL (3.5-5.0); Alkaline Phosphatase 60 U/L (39-117); Anion Gap 14 (12-20); Aspartate Amino Transferase 25 U/L (5-31); Blood Urea Nitrogen 24 mg/dL (9-16); Calcium 9.1 mg/dL (8.4-10.2); Carbon Dioxide 22 mmol/L (22-29); Chloride 108 mmol/L (96-108); Creatinine Clr Calc Pharmacy 31.2; Estimated Glomerular Filt Rate 41; Magnesium 1.5 mg/dL (1.6-2.6); Potassium 3.5 mmol/L (3.3-5.1); Sodium 140 mmol/L (135-145); Total Protein 6.3 g/dL (6.5-8.0)
[2025-10-10 07:53] LABS: Glucose, Whole Blood 159 mg/dL (60-115)
[2025-10-10 08:00] VITALS: BP 158/71; PULSE 63; RESP 20; TEMP 36.3; O2SAT 92
[2025-10-10] MEDS: Sulfamethox/Trimeth 800/160 TABLET 1 TAB PO (08:04)
[2025-10-10] MEDS: Ferrous Sulfate 324 MG TABLET.DR PO (08:04)
[2025-10-10] MEDS: Metoprolol Succinate ER 50 MG TAB.ER.24H PO (08:04)
[2025-10-10] MEDS: 0.9 % Sodium Chloride Flush 3 ML SYRINGE IVFLUSH (08:05)
--- NOTE | 2025-10-10 11:33 | MHC.CM.PN ---
Patient medically cleared for dc to acute rehab. [facility] has accepted, patient preference. BLS transport scheduled for 4pm. Patient, RN, MD aware. IMM delivered.
[2025-10-10 11:52] VITALS: BP 159/77; PULSE 66; RESP 18; TEMP 36.1; O2SAT 93
[2025-10-10 12:13] LABS: Glucose, Whole Blood 255 mg/dL (60-115)
--- NOTE | 2025-10-10 12:36 | MHC.SL.SWA ---
Speech Pathologist Impression: WFL Risk of Aspiration Due to: Dysphasia Diet Status: Recommend UPGRADE to REGULAR solids, THIN liquids Liquid Consistency and Strategies for Safe Swallow: Liquid Intake Recommendation: Thin Liquid Intake Strategies: Solid Food Consistency: Dietary Recommendations: Regular Additional Modifications to Solid Foods: Encourage patient to select softer items from menu Oral Medication Intake: Whole with Liquid Please contact the pharmacy regarding appropriate crushable or liquid drug formulations that are available whenever modified delivery is recommended. Compensatory Strategies and Precautions to be Taken for Safe Swallow: Small bites/sips Sit upright (90 degrees) Remain Upright After Meals (30 minutes) Alternate Liquids/Solids Slow Pace Supervision While Eating and Drinking for Safe Swallow: Intermittent Supervision Foods to Avoid: [place] dry, sticky, or hard foods Swallowing Recommended Treatments: Compens. Strategy Educat. Recommendation for Speech: Inpatient Speech Therapy Comment: Patient met in room for dysphagia treatment. Patient placed on NDD3 solids d/t reports of Globus sensation. Patient reporting current diet mushy. Patient denies any difficulties swallowing or any difficulties wit mastication. Patient given pudding and guadalupe crackers this date. Patient with no s/sx of penetration/aspiration. Patient also reporting no Globus sensation or any other esophageal s/sx. Recommend UPGRADE to REGULAR solids, THIN liquids. Encourage patient to select softer items from menu. Medications whole with liquids. ON CAR SUPERVISOR to follow-up x1 to ensure tolerance. Diet changed in expanse. MD, RD, and RN notified of recommendations via secure chat. Frequency/Duration: x1 f/u M-F Date Range for Service Req: Timeline to reassess: Insulator Technician Clinican/Clinical Fellow: No Supervisory Statement: I have reviewed and agree with the student/clinical fellow's documentation: N/A Speech Language Pathologist: Nhung Caldwell M.A., CCC-ON CAR SUPERVISOR
--- NOTE | 2025-10-10 14:19 | P.DS_ITS ---
DS: Providers Provider Date of Service: 10/10/25 Date of admission: 10/06/25 04:45 Date of discharge: 10/10/25 Primary care physician: Unknown Physician DS: Diagnosis Discharge Diagnosis (1) Acute heart failure with preserved ejection fraction (HFpEF): Status: Acute DS: Summary Hospital Course Hospital Course: Chief Complaint: SOB, hypoxia pt is an 85 yo f with a pmhx significant for T2DM, paroxysmal a fib on eliqius, HTN, GERD, MV stenosis, emphysema, and HFpEF. who presented to the ED due to hypoxia and SOB. pt was recently d/c'd from SNF after a fall with rib fx's. she denies any chest pain, cough, fever, chills, nausea or vomiting. when EMS arrived pt's o2 was 85% ORA. she notes some increased SOB since arriving. she also notes she has been having difficulties with swallowing but denies coughing or choking with eating. imaging in ED consistent with multilobar pneumonia ?aspiration with bilateral pleural effusions. Hospital course: Acute heart failure with preserved ejection fraction (HFpEF) AE HFpEF, increase lasix to 40 po bid hyperdynamic LV systolic function, LVEF 71%, severe mitral annular calcification, moderate to severe mitral valve stenosis, moderately dilated left atrium acute hypoxic respiratory failure likely multifactorial: secondary to pneumonia and HFpEF Initially on IV abx, now being switched to BActrim needs to complete 2 more days to complete a total 7 day course of antibiotics Bacteremia , possibly a contaminant since 11/17 BC + for Strep viridans 1/2 blood cultures positive for viridans Streptococcus now being switched to BActrim K pneumonia UTI - resistant to AMpicillin, will switch to PO bactrim - needs to complete 2 more days to complete a total 7 day course of antibiotics Weakness, hx of recent fall - pt recently at rehab; daughter reports she was only at home for 6 hours before re-presented to the emergency room - seen by PT who recommend acute rehab- will need rehab again acute metabolic acidosis with hyperchloremia and pseudohyperkalemia (hemolysis) - resolved T2DM - SSI, titrated daily to maintain euglycemia - diabetic diet paroxysmal a fib - eliquis - continue amiodarone HTN Continue home med GERD - continue home meds chronic emphysema, no acute exacerbation - continue home meds DNR/DNI VTE prophy: eliquis Dispo: STR Spoke to the daughter and she was in agreement with the above plan. Extensive discussion was made and answered all her questions regarding discharge medications and changes in medications that we have made during this hospitalization. Advised the patient to follow up with PCP for further care for ongoing care. This note is constructed using voice recognition software. While every effort has been made to ensure accuracy, process maintenance technician errors may have been included. Time spent discussing smoking cessation with patient: more than 10 minutes Status at Discharge Functional status at discharge: bed bound Overall status at discharge: patient is progressing back to baseline Time Attestation Discharge Coordination Time (in mins): 65 Quality: Safe Use of Opioids Does Pt have an Active Cancer Diagnosis on the Problem List?: No Quality: Stroke Does the patient have a stroke diagnosis?: No Physical Exam Vital Signs: Vital Signs: Last Vital Signs Temp 96.9 F 10/10/25 11:52 Pulse 66 10/10/25 11:52 Resp 18 10/10/25 11:52 BP 159/77 H 10/10/25 11:52 Pulse Ox 93 10/10/25 11:52 O2 Del Method Nasal Cannula 10/10/25 11:52 O2 Flow Rate 1 10/10/25 11:52 BMI result Body Mass Index 25.8 DS: Data Data Completed and Pending Labs on day of discharge: Laboratory Results - last 24 hr 10/09/25 10/09/25 10/10/25 16:05 19:47 06:02 WBC 9.6 RBC 3.27 L Hgb 10.3 L Hct 32.3 L MCV 98.8 H MCH 31.5 MCHC 31.9 RDW 15.3 Plt Count 218 MPV 11.5 Immature Gran % (Auto) 0.7 H Neut % (Auto) 74.8 H Lymph % (Auto) 10.4 L [place] % (Auto) 11.3 H Eos % (Auto) 2.4 Baso % (Auto) 0.4 Lymph # (Auto) 1.0 L [place] # (Auto) 1.1 Eos # (Auto) 0.2 Baso # (Auto) 0.0 Abs Immat Gran (auto) 0.07 H Absolute Neuts (auto) 7.2 Absolute Nucleated RBC 0.000 Nucleated RBC % (auto) 0.0 Sodium Potassium Chloride Carbon Dioxide Anion Gap BUN Creatinine Estim Creat Clear Calc Estimated GFR POC Glucose 240 H 295 H Random Glucose Calcium Magnesium Total Bilirubin AST ALT Alkaline Phosphatase Total Protein Albumin 10/10/25 10/10/25 10/10/25 06:08 07:48 11:41 WBC RBC Hgb Hct MCV MCH MCHC RDW Plt Count MPV Immature Gran % (Auto) Neut % (Auto) Lymph % (Auto) [place] % (Auto) Eos % (Auto) Baso % (Auto) Lymph # (Auto) [place] # (Auto) Eos # (Auto) Baso # (Auto) Abs Immat Gran (auto) Absolute Neuts (auto) Absolute Nucleated RBC Nucleated RBC % (auto) Sodium 140 Potassium 3.5 Chloride 108 Carbon Dioxide 22 Anion Gap 14 BUN 24 H Creatinine 1.25 Estim Creat Clear Calc 31.2 Estimated GFR 41 POC Glucose 159 H 255 H Random Glucose 167 H Calcium 9.1 Magnesium 1.5 L Total Bilirubin 0.2 AST 25 ALT 14 Alkaline Phosphatase 60 Total Protein 6.3 L Albumin 3.6 Preliminary micro results at discharge 10/06/25 04:49 Blood Culture - Preliminary Blood - Venous No growth after 48 hours. Discharge Plan Discharge Anticipated Discharge Date/Time: 10/10/25 13:24 Patient Disposition: Xfer Inpatient Rehab Fac Discharge Diagnosis: Klebsiella UTI and pneumonia causing AE HFpEF Referrals: [facility] [Outside] - 1 Day Referral Note: acute rehab Physician,Unknown J [Primary Care Provider, Medical] - 1 Week Discharge Medications: New sulfamethoxazole-trimethoprim 800-160 mg Tablet 1 tab PO Q12H 2 Days Qty: 4 0RF tramadol 50 mg Tablet 50 mg PO Q6H PRN (Reason: Pain, Moderate(Pain Scale 4-6)) 10 Days Qty: 14 0RF furosemide 40 mg Tablet 40 mg PO BID@0900,1800 30 Days Qty: 60 0RF Protocol: Hold for SBP< HOLD for SBP < : 90 docusate sodium 100 mg Capsule 100 mg PO BID PRN (Reason: Constipation) 30 Days Qty: 60 0RF Continued amiodarone 200 mg tablet 200 mg PO DAILY Qty: 90 3RF Eliquis 5 mg tablet 5 mg PO BID Qty: 180 3RF amlodipine 10 mg tablet 10 mg PO DAILY ferrous sulfate [FeroSul] 325 mg (65 mg iron) tablet 325 mg PO BIDPC omeprazole 20 mg capsule,delayed release(DR/EC) 20 mg PO DAILY@0630 acetaminophen 325 mg Tablet 975 mg PO TID gabapentin 100 mg Capsule 100 mg PO TID hydralazine 25 mg Tablet 75 mg PO QID metoprolol succinate 25 mg Tablet Extended Release 24 Hr 50 mg PO DAILY insulin lispro 100 unit/mL Insulin Pen 1 sliding scale dose SUBCUT QIDACHS Rx Instructions: BS 201-250 =2 UNITS BS 251-300 = 4 UNITS BS 301-350 = 6 UNITS BS 351-400 = 8 UNITS MORE THAN 400 = 10 UNIT AND CALL pravastatin 20 mg tablet 20 mg PO DAILY Discontinued methocarbamol 500 mg Tablet 1,000 mg PO TID Discharge Orders: Discharge Order (Routine); Ordered 10/10/25 Ordered By: Anita Rojas Diet: Low salt diet Activity on Discharge: Use cane or walker Stand Alone Forms: Patient Portal Discharge page Print Language: Slovak Care Plan Goals: Complete 2 more days of antibiotics Bactrim Continue working with PTOT We have stopped Robaxin per your daughter's request Gabapentin can be titrated based on PCP recs outpatient Blood pressure meds we will likely need to be titrated and we will be done outpatient Health Concerns: See above Plan of Treatment: See above Assessment: See above
[2025-10-10 15:26] VITALS: BP 147/76; PULSE 61; RESP 18; TEMP 36.1; O2SAT 92
== END 2025-10-10 16:02 | DRG 177 ==
LOC: HO.ED 04:37 → HO.EDOVER 05:00 → HO.S3 07:15
PROVIDERS: Student in an Organized Health Care Education/Training Program; Admitting Provider Physician Assistant; Emergency Provider Emergency Medicine; Visit Provider Student in an Organized Health Care Education/Training Program
DX: J69.0 Pneumonitis due to inhalation of food and vomit (principal); I50.33 Acute on chronic diastolic (congestive) heart failure; J96.01 Acute respiratory failure with hypoxia; N39.0 Urinary tract infection, site not specified; J91.8 Pleural effusion in other conditions classified elsewhere; E87.21 Acute metabolic acidosis; R78.81 Bacteremia; Z16.11 Resistance to penicillins; I11.0 Hypertensive heart disease with heart failure; Z66 Do not resuscitate; I48.0 Paroxysmal atrial fibrillation; J43.9 Emphysema, unspecified; E11.9 Type 2 diabetes mellitus without complications; K21.9 Gastro-esophageal reflux disease without esophagitis; R53.81 Other malaise; B96.1 Klebsiella pneumoniae [K. pneumoniae] as the cause of diseases classified elsewhere; I34.81 Nonrheumatic mitral (valve) annulus calcification; I34.0 Nonrheumatic mitral (valve) insufficiency; Z91.81 History of falling; Z20.822 Contact with and (suspected) exposure to COVID-19; Z79.4 Long term (current) use of insulin; Z79.01 Long term (current) use of anticoagulants; Z79.899 Other long term (current) drug therapy
CPT/HCPCS: 36415; 71045; 71250; 80048; 80053; 81001; 82565; 82803; 82947; 83605; 83735; 83880; 84484; 85025; 85027; 85610; 87040; 87086; 87088; 87186; 87205; 87637; 87640; 87641; 92526; 92610; 93005; 93306; 97162; 97530; 99285; J1938; J2543; J3374; J3475

== ENCOUNTER → 2025-10-06 01:16 | Outpatient (BNV) | payer MEDICARE, SELFPAY | PROVIDERS: Emergency Provider Emergency Medicine; Visit Provider Radiology Diagnostic Radiology | DX: J90 Pleural effusion, not elsewhere classified (principal) | CPT/HCPCS: 71045 ==

== ENCOUNTER 2025-10-06 04:45 | Outpatient (BNV) | payer MEDICARE, SELFPAY | END 2025-10-06 07:00 | PROVIDERS: Admitting Provider Physician Assistant; Emergency Provider Emergency Medicine; Visit Provider Internal Medicine | DX: I35.0 Nonrheumatic aortic (valve) stenosis (principal); I51.89 Other ill-defined heart diseases; I34.81 Nonrheumatic mitral (valve) annulus calcification | CPT/HCPCS: 93306 ==

== ENCOUNTER → 2025-10-06 04:45 | Outpatient (BNV) | payer MEDICARE, SELFPAY | PROVIDERS: Admitting Provider Physician Assistant; Emergency Provider Emergency Medicine; Visit Provider Student in an Organized Health Care Education/Training Program | DX: I50.31 Acute diastolic (congestive) heart failure (principal) | CPT/HCPCS: 99233 ==